=== PATIENT | female | born 1950 | race Caucasian/White ===

== ENCOUNTER 2017-04-15 18:28 | Inpatient (IN) | payer OTHER ==
[~2017-04-15] VITALS: Ht 152.4 cm; Wt 50.8 kg
--- NOTE | ~2017-04-15 | H ---
[facility] [place] [address] HISTORY AND PHYSICAL Name: GILMAR ELDER Room #: 459-P ADM IN M.R.#: [id number] Admission: 04/15/17 Attend Phys: Harish Hoff MD Discharge: Date of : 52 Report #: [id number] THIS REPORT FOR: //name// CC: Harish Wells ATTENDING PHYSICIAN: Betito Guzmán MD. PRIMARY CARE PHYSICIAN: Misha Adams MD. CHIEF COMPLAINT: PE and UTI. HISTORY OF PRESENT ILLNESS: The patient is an elderly female who was initially admitted at [facility] for low oxygen saturations. She does have underlying mental retardation from a hypoxic brain injury at and she is normally nonverbal. She was found to have low oxygen saturations and was taken into [facility] for further evaluation. Her oxygen saturations were in the 70s. She was diagnosed with PE in the left lower lobe. She was also noted to have a UTI. She initially was on a heparin drip and started on antibiotics for UTI. Her urine culture ended up growing E. coli. Her blood cultures have been negative. She is in the process of getting off the heparin drip and switching to Eliquis and working towards discharge, but her family thinks that she was back to her mental status baseline. Apparently, she is normally more alert; therefore, she underwent an MRI, which showed 4 meningiomas and neurology was consulted. It was around this time that the family did not want her transfer to [facility] if she had to remain hospitalized. She is a DNR/DNI. She had an echo done there, which showed an EF of 60% with grade 1 diastolic dysfunction and no regional wall motion abnormalities. She is currently alert, but remains nonverbal. She also has asthma and apparently was recently admitted at [facility] for a brief hospital stay for an asthma exacerbation. She is currently not in any acute distress. PAST MEDICAL HISTORY: Asthma, mental retardation, hypertension, hyperlipidemia, seizure disorder, and dysphagia. PAST SURGICAL HISTORY: Knee replacements. ALLERGIES: None. HOME MEDICATIONS: Trazodone 100 mg p.o. daily, budesonide b.i.d., potassium 10 mEq daily, Mobic 7.5 mg p.o. daily, loratadine 10 mg daily, Spiriva 1 capsule daily, Brovana 15 mcg inhaled b.i.d., Singulair 10 mg at bedtime, simvastatin 20 mg at bedtime, albuterol inhaler daily, Keppra 750 mg p.o. b.i.d., Prilosec 20 mg p.o. daily, Pataday eyedrops daily, milk of magnesia daily p.r.n., Tylenol p.r.n., multivitamin daily, guaifenesin 200 mg q.i.d., and Promethazine 12.5 mg q.8 hours p[address]n. [address] [address] HISTORY AND PHYSICAL Name: JAELGILMAR Man Room #: 459-P [facility] IN M..#: [id number] Admission: 04/15/17 Attend Phys: Harish Hoff MD Discharge: Date of : 52 Report #: [id number] SOCIAL HISTORY: The patient lives in a correction facility, has no history of alcohol, tobacco or drug use. FAMILY HISTORY: Positive for blood clots in her brother. REVIEW OF SYSTEMS: Unobtainable due to altered mental status. PHYSICAL EXAMINATION: GENERAL: The patient is an alert, but nonverbal female, in no acute distress. VITAL SIGNS: Temperature is 36.7, heart rate 110, respirations 20, blood pressure is 131/62, and oxygen 92% on room air. HEENT: PERRLA. Sclerae are nonicteric. She does not track with her eyes. Oral mucosa is pink and moist. She is edentulous. NECK: Supple, no JVD noted. CARDIAC: Normal S1, S2. No murmurs, rubs or gallops. RESPIRATORY: Breath sounds are clear bilaterally. No wheezing or rhonchi. Breathing is nonlabored. ABDOMEN: Soft, round, nontender, nondistended with positive bowel sounds. VASCULAR: No edema noted. Pedal pulses are 2+. NEUROLOGIC: The patient is alert. She is nonverbal. She does follow a few simple commands of taking a deep breath and opening her mouth, but she will not follow commands as far as moving her extremities or tracking with her eyes. LABORATORY DATA AND DIAGNOSTICS: Blood work done at [facility] shows WBC of 5.4, hemoglobin 11.9, and platelets 105. Sodium 149, potassium 3.7, BUN 14, creatinine 0.6, and glucose 107. MRI and CT of the head ____. ASSESSMENT AND PLAN: 1. Pulmonary embolism: The patient had been on a heparin drip. She was just switched to Eliquis today. She received her first dose of Eliquis earlier this morning and heparin drip was discontinued. We will continue with Eliquis 10 mg b.i.d. and then after 7 days decrease to 5 mg b.i.d. Her oxygen saturations are stable. 2. Urinary tract infection. The culture from [facility] does show that it is nelson sensitive Escherichia coli. We will start Cipro per IV right now and then switch to oral ____. 3. Brain meningiomas. Apparently, her MRI is consistent with 4 meningiomas. I am not sure if this is having any neurological effect at this time. When her family arrives, we will try to discuss with them if she is at her mental status baseline and see if she requires any neuro evaluation that does not seem necessary at this time. 4. Dysphagia. Apparently, she has pureed diet with honey thickened liquids and crushed medications, which she will continue and follow aspiration precautions. 5. Mental retardation with a nonverbal status. 6. Code status: The patient is a do not resuscitate/do not intubate per [facility] records. [address] [address] HISTORY AND PHYSICAL Name: GILMAR ELDER Room #: 459-P ADM IN .R.#: [id number] Admission: 04/15/17 Attend Phys: Harish Hoff MD Discharge: Date of : 52 Report #: [id number] 7. Asthma. She did have a recent exacerbation, but that has currently resolved. Continue with breathing treatments. 8. Hypertension. Blood pressure is stable. Continue home meds. 9. Deep venous thrombosis prophylaxis, place SCDs and continue Eliquis. We will continue to follow the patient closely throughout the hospitalization and make changes. Based on clinical status, she likely would be able to transfer back to her correction soon. <ELECTRONICALLY SIGNED> By: LISSETT Truong 04/17/17 0442 0850 1046 LISSETT Truong /shana
[~2017-04-15 18:28] MED LIST: ACCUNEB SO1.25 MG/1; ACCUNEB0.63 MG/3 IH; ADVAIR 250-501 EACH IH; ADVAIR 500-501 EACH IH; ALBUTEROL2.5 MG/31 INH; ALLERCLEAR10 MG PO; APAP500 PO; BONIVA150 MG PO; BROVANA15 MCG/2 M INH; BUDESONIDE0.5 MG/2 M INH; CEFTIN 250 MG250 MG PO; COUGHTAB200 MG PO; EUCERIN; FLINTSTONES +1 EACH PO; GOLYTELY SOLU4000 ML PO; KEPPRA XR750 MG PO; KEPPRA750 MG PO; KLOR-CON 1010 MEQ PO; LIPITOR10 MG PO; MILK OF MA2400 MG/10 PO; MOBIC15 MG PO; MOBIC7.5 M1 PO; MONTELUKAST SOD10 MG PO; NEOSPORIN OINTM15 GM TP; ORGAN-I NR200 MG PO; PATADAY2.5 ML OP; PHENERGAN 25 MG25 M1 PO; PREDNISONE 10 M10 MG PO; PREDNISONE 20 M20 MG PO; PREDNISONE 5 MG5 M1 PO; PRILOSEC20 MG PO; ROBITUSSIN DM118 ML PO; SIMVASTATIN20 MG PO; SINGULAIR 10 MG10 M1 PO; SPIRIVA INH; SPRINTEC1 EACH PO; TRAZODONE HCL100 MG PO; TRILEPTAL 300300 MG PO; TRIPLE ANTIBIOT28 G1; ZPAK PO; [UNRECOGNIZED DRUG - OTHER]; [UNRECOGNIZED DRUG - OTHER] PO; [UNRECOGNIZED DRUG - OTHER] PO
[2017-04-15 20:00] VITALS: BP 131/62
[2017-04-16] VITALS (8 sets, daily range): BP systolic 92–113; BP diastolic 35–48
[2017-04-17 03:04] VITALS: BP 104/40
[2017-04-17 06:02] LABS: HEMOGLOBIN 12.3 gm/dL (12.0-15.0); MCH 30.4 pg (26.0-34.0); MCHC 33.3 g/dL (28.0-37.0); MCV 91.2 fL (80.0-100.0); RBC 4.05 mil/uL (4.20-5.00); RDW 14.2 % (10.5-14.5); WBC 7.2 thou/uL (4.0-11.0)
[2017-04-17 06:29] LABS: ALBUMIN 2.6 g/dL (3.4-5.0); CALCIUM 7.7 mg/dL (8.5-10.1); CREATININE 0.6 mg/dL (0.6-1.0); POTASSIUM 4.3 mmol/L (3.5-5.1); TOTAL BILIRUBIN 0.3 mg/dL (<0.1-1.0); TOTAL PROTEIN 5.7 g/dL (6.4-8.2)
[2017-04-17 07:11] VITALS: BP 105/40
[2017-04-17 09:49] VITALS: BP 105/40
[2017-04-17 11:15] VITALS: BP 90/32
[2017-04-17 16:03] VITALS: BP 100/52
[2017-04-17 19:37] VITALS: BP 112/56
[2017-04-18 03:08] VITALS: BP 103/54
[2017-04-18 05:01] LABS: URINE BILIRUBIN NEGATIVE (Negative); URINE BLOOD NEGATIVE (Negative); URINE COLOR YELLOW; URINE GLUCOSE-RANDOM* NEGATIVE (Negative); URINE KETONES NEGATIVE (Negative); URINE LEUKOCYTES-REFLEX NEGATIVE (Negative); URINE PROTEIN (DIPSTICK) NEGATIVE (Negative); URINE SPECIFIC GRAVITY 1.015 (1.003-1.035); URINE UROBILINOGEN 0.2 E.U./dl (0.2-1.0)
[2017-04-18 07:52] VITALS: BP 89/31
[2017-04-18 09:52] LABS: HEMATOCRIT 38.1 % (37.0-47.0); HEMOGLOBIN 12.7 gm/dL (12.0-15.0); MCH 30.6 pg (26.0-34.0); MCHC 33.3 g/dL (28.0-37.0); MCV 91.9 fL (80.0-100.0); RBC 4.15 mil/uL (4.20-5.00); RDW 14.4 % (10.5-14.5); WBC 6.1 thou/uL (4.0-11.0)
[2017-04-18 10:00] LABS: CALCIUM 7.9 mg/dL (8.5-10.1); CREATININE 0.6 mg/dL (0.6-1.0); POTASSIUM 3.3 mmol/L (3.5-5.1)
[2017-04-18 11:07] VITALS: BP 107/44
[2017-04-18 15:32] VITALS: BP 105/89
[2017-04-19 07:16] VITALS: BP 115/55
[2017-04-19] MEDS ORDERED: ELIQUIS5 MG PO (11:24)
[2017-04-19] MEDS ORDERED: CIPRO500 MG PO (11:36)
[2017-04-19 14:53] VITALS: BP 115/55
[2017-04-19 16:11] VITALS: BP 115/55
== END 2017-04-19 16:10 | disposition home health service (06) | DRG 175 ==
LOC: 4W 18:28
PROVIDERS: Internal Medicine; Nurse Practitioner Acute Care
DX: I26.99 Other pulmonary embolism without acute cor pulmonale (principal); G93.40 Encephalopathy, unspecified; N39.0 Urinary tract infection, site not specified; E44.1 Mild protein-calorie malnutrition; J45.909 Unspecified asthma, uncomplicated; I10 Essential (primary) hypertension; E78.5 Hyperlipidemia, unspecified; G40.909 Epilepsy, unspecified, not intractable, without status epilepticus; Z96.659 Presence of unspecified artificial knee joint; D32.0 Benign neoplasm of cerebral meninges; R13.10 Dysphagia, unspecified; M85.80 Other specified disorders of bone density and structure, unspecified site; F79 Unspecified intellectual disabilities; Z66 Do not resuscitate; Z83.2 Family history of diseases of the blood and blood-forming organs and certain disorders involving the immune mechanism; Z79.899 Other long term (current) drug therapy; Z68.21 Body mass index [BMI] 21.0-21.9, adult
CPT/HCPCS: 10045; 10047

== ENCOUNTER → 2017-11-20 | Outpatient (CLI) | payer OTHER ==
[~2017-11-20] MED LIST changes: +CIPRO500 MG PO; +ELIQUIS5 MG PO
== END ==
LOC: RAD 08:45
DX: J98.11 Atelectasis (principal)

== ENCOUNTER 2019-02-02 11:29 | Inpatient (IN) | payer OTHER ==
[~2019-02-02] VITALS: Ht 165.1 cm; Wt 47.9 kg
[2019-02-02 11:37] VITALS: BP 82/26
[2019-02-02 12:24] LABS: ABSOLUTE NEUTROPHILS 2.7 thou/uL (1.4-8.2); BASOPHILS 0.6 % (0.0-2.0); EOSINOPHILS 13.5 % (0.0-3.0); HEMATOCRIT 31.5 % (37.0-47.0); HEMOGLOBIN 10.8 gm/dL (12.0-15.0); LYMPHOCYTES 20.8 % (24.0-44.0); MCH 31.6 pg (26.0-34.0); MCHC 34.2 g/dL (28.0-37.0); MCV 92.3 fL (80.0-100.0); MONOCYTES 9.4 % (1.0-8.0); PLATELET COUNT 103 thou/uL (150-400); POLYS 55.7 % (36.0-66.0); RBC 3.41 mil/uL (4.20-5.00); RDW 14.7 % (10.5-14.5); WBC 4.9 thou/uL (4.0-11.0)
[2019-02-02 12:33] LABS: URINE BILIRUBIN NEGATIVE (Negative); URINE BLOOD NEGATIVE (Negative); URINE COLOR YELLOW; URINE GLUCOSE-RANDOM* NEGATIVE (Negative); URINE KETONES NEGATIVE (Negative); URINE NITRITE-REFLEX NEGATIVE (Negative); URINE PROTEIN (DIPSTICK) NEGATIVE (Negative); URINE UROBILINOGEN 0.2 E.U./dl (0.2-1.0)
[2019-02-02 12:35] LABS: URINE LEUKOCYTES-REFLEX 2+ (Negative)
[2019-02-02 12:36] LABS: URINE CLARITY SL HAZY
[2019-02-02 12:41] LABS: ANION GAP 5 mmol/L (7-16); BUN 23 mg/dL (7-18); CALCIUM 8.2 mg/dL (8.5-10.1); CHLORIDE 106 mmol/L (98-107); CO2 32 mmol/L (21-32); CREATININE 0.7 mg/dL (0.6-1.0); GLUCOSE 98 mg/dL (74-106); POTASSIUM 4.2 mmol/L (3.5-5.1); SODIUM 143 mmol/L (136-145)
[2019-02-02 12:49] LABS: TROPONIN-I <0.06 ng/mL (<0.06)
[2019-02-02 13:00] LABS: AMP/METHAMP Negative (Negative); BARBITURATES Negative (Negative); BENZODIAZEPINES Negative (Negative); COCAINE Negative (Negative); METHADONE Negative (Negative); OPIATES Negative (Negative); PCP Negative (Negative); SQUAMOUS 0-3 Few /LPF (0-3); TRANSITIONAL EPITHEL CELL 0-3 Few /LPF (None Seen)
[2019-02-02 13:01] LABS: AMORPHOUS URATES Moderate /LPF (None Seen); BACTERIA-REFLEX 1-9 Few /HPF (None Seen); CASTS None Seen /LPF (None Seen); URINE RBC None Seen /HPF (0-2); URINE WBC-REFLEX 6-15 Few /HPF (0-5)
[2019-02-02] MEDS ORDERED: KEPPRA 500 MG500 M1 PO (14:36)
[2019-02-02] MEDS ORDERED: OMEPRAZOLE40 MG PO (14:38)
[2019-02-02] MEDS ORDERED: TRAZODONE HCL50 MG PO (14:47)
[2019-02-02 16:51] VITALS: BP 115/56
[2019-02-02 16:54] LABS: TSH 0.795 uIU/mL (0.358-3.740)
[2019-02-02 17:48] VITALS: BP 120/49
[2019-02-02 18:13] VITALS: BP 128/59
--- NOTE | 2019-02-02 18:45 | NUR ---
[age]AR FEMALE ADMITTED TO 3WEST ROOM 362 UNDER THE CARE OF DR. HARMON. PT LIVES IN A ASSISTED, AND SENT TO ER DUE TO STAFF STATING SHE WAS NOT "ACTING HERSELF" PT VERY SLEEPY AND BLOOD PRESSURE LOW PER ASSISTED STAFF. PT IS NON VERBAL, RESPONDS TO NAME ONLY. PT CAN FOLLOW SIMPLE COMMANDS. PT VSS, 98%RA, IVF INFUSING PER ORDER. PT DOES NOT APPEAR TO BE IN ANY PAIN. PT PRIVATE CARE GIVEN AT BEDSIDE TO HELP WITH ADMISSION ASSESSMENT. FILIPPO PICKERING TO MONITOR.
[2019-02-02 20:15] VITALS: BP 137/58
--- NOTE | 2019-02-02 21:32 | NUR ---
Assumed care at 1845. Pt resting in bed. No indications of pain. At most times she appears to be drowsy. VSS. NS running @125. She is non-verbal. No identified needs at the moment. Will continue to monitor.
[2019-02-03 04:10] VITALS: BP 111/66
[2019-02-03 05:35] LABS: HEMATOCRIT 33.5 % (37.0-47.0); HEMOGLOBIN 11.3 gm/dL (12.0-15.0); MCH 31.2 pg (26.0-34.0); MCHC 33.9 g/dL (28.0-37.0); MCV 92.1 fL (80.0-100.0); RBC 3.64 mil/uL (4.20-5.00); RDW 14.2 % (10.5-14.5); WBC 3.8 thou/uL (4.0-11.0)
[2019-02-03 06:11] LABS: ALBUMIN 2.8 g/dL (3.4-5.0); CALCIUM 7.6 mg/dL (8.5-10.1); CREATININE 0.7 mg/dL (0.6-1.0); PHOSPHORUS 4.1 mg/dL (2.5-4.9); POTASSIUM 3.4 mmol/L (3.5-5.1)
[2019-02-03 08:08] VITALS: BP 114/62
[2019-02-03 12:42] VITALS: BP 124/59
--- NOTE | 2019-02-03 15:43 | NUR ---
ASSESSMENT: CM REVIEWED CHART AND MET WITH PATIENT AT THE BEDSIDE. PTS CAREGIVER KLAUDIA WAS ALSO PRESENT. PT WAS ADMITTED FOR UTI/HYPOTENSION/DELERIUM. PT LIVES AT [facility] AND HAS A LEGAL GUARDIAN REJI (SISTER). PT NORMALLY AMBULATES INDEPENDENTLY. CAREGIVER AND SISTER REPORT SHE NORMALLY IS NOT ABLE TO VERBALLY COMMUNICATE WHAT HER NEEDS. CM DISCUSSED WITH LEGAL GUARDIAN AND PLANS ARE FOR PATIENT TO RETURN TO HER [facility] ONCE SHE IS MEDICALLY STABLE TO DO SO. CM WILL CONITINUE TO FOLLOW TO ASSIST NEEDED.
--- NOTE | 2019-02-03 16:55 | EKG ---
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: DAREK : 1950 Requested By: Murray Bowman Order Number: [id number] MD: Denys Barnett Measurements Intervals Raymond Rate: 69 P: 56 GA: 217 QRS: -11 QRSD: 83 T: 55 QT: 433 QTc: 464 Interpretive Statements Sinus rhythm Borderline prolonged GA interval Abnormal R-wave progression, early transition Compared to ECG 12/08/2014 10:35:34 Sinus tachycardia no longer present early R-wave progression is now present Electronically Signed On 02-03-2019 16:55:25 CDT by Denys Barnett [email or web address] ��������������������������������������������� <ELECTRONICALLY SIGNED> ���������������������������������������� By: Denys Barnett MD, [facility] ��������������������������������������������� 02/03/19 1655 1229 1229 Denys Barnett MD, [facility] /EPI
[2019-02-03 19:50] VITALS: BP 130/66
[2019-02-04 03:38] VITALS: BP 108/56
[2019-02-04 07:12] VITALS: BP 121/56
--- NOTE | 2019-02-04 10:29 | NUR ---
Nutrition: assess d/t low BMI of 17.6. Pt admitted for low BP and UTI; hx of MR. Pt had no BM for ~7 days prior to admit. No family present during visit. Wt hx from past admissions show loss of ~6 lbs over the past 2 years. Pt is on pureed diet w/ NTL at SNF. Video swallow study was done on 02/03 which confirmed need for altered diet. Will confirm wt hx w/ family when available. Otherwise, consider low nutrition risk at this time.
[2019-02-04 15:10] VITALS: BP 144/76
--- NOTE | 2019-02-04 15:52 | NUR ---
CONTINENT OF 2 LARGE, BROWN, AND SOFT STOOLS POST MIRALAX AND DULCOLAX SUPPOSITORY.
--- NOTE | 2019-02-04 15:58 | NUR ---
on-going assessment: cm REVIEWED CHART AND MET WITH PATIENT AT THE BEDSIDE. PTS CAREGIVER WAS PRESENT. PT IS SLOWLY PROGRESSING TOWARDS DISCHARGE GOALS. PER ATTENDING PT MAY BE STABLE IN THE NEXT DAY OR SO TO GO BACK TO [facility]. CM CONTACT PATIENTS SISTER(GUARDIAN) REJI TO NOTIFY. CM ALSO SPOKE WITH KIA [phone] WHO IS THE BOSS AT THE CARE HOME WHO STATES HE WILL DIRECTOR MEDICAL SURGICAL PATIENT FOR TRANSPORTATION AT DISCHARGE. CM WILL CONTINUE TO FOLLOW TO ASSIST NEEDED.
[2019-02-04 19:45] VITALS: BP 168/72
[2019-02-05 05:15] VITALS: BP 133/72
[2019-02-05 07:14] VITALS: BP 128/58
--- NOTE | 2019-02-05 07:56 | NUR ---
ASSUMED CARE OF PT AT 1900. A&Ox2, COOPERATIVE MOST OF THIS SHIFT. A LITTLE AGITATION BUT WAS REDIRECTABLE. VS STABLE, NO ACUTE DISTRESS. 2 SM BMS IN TOILET OVER NOC. ABLE TO SLEEP MORE THAN HALF THIS SHIFT. PROGRESSING TOWARDS POC GOALS.
[2019-02-05] MEDS ORDERED: ELIQUIS5 MG PO (10:31)
[2019-02-05] MEDS ORDERED: AUGMENTIN 400-1 EACH PO (10:32)
[2019-02-05 13:08] VITALS: BP 128/58
--- NOTE | 2019-02-05 13:22 | NUR ---
Assumed care of patient at 0700. Vitals have been stable. Patient is alert, appears oriented to self. Otherwise non-verbal and confused. Able to follow simple commands. Caregiver at bedside. States feels patient may still be having some abdominal pain, as she rubs at her belly from time to time. Encouraged to speak with the doctor to see what the next step will be. Dr. Guzmán rounded and wrote for DC orders. Caregiver still concerned about ABD pain. Bladder scan shows 900 mL of urine. Encouarged patient to get out of bed and void. Able to walk SBA to bathroom and voided; post void residual shows 15 mL. Patient also passed a lot of gas while up in the bathroom. Patient seems much more relaxed now and able to sleep on and off. Both of patient's sisters have concerns about discharge. Answered their questions regarding bladder scan and reassured that patient was able to void. Could be some gas pains from laxatives given yesterday. Dr. Guzmán called guardian, Kindra and answered her questions and concerns. Chart copy made for alf. IV discontinued. Belongings gathered. Briefly reviewed discharge instructions with caregiver at bedside and placed in chart copy. Verbalizes understanding. Awaiting wheelchair transportation back to home with caregiver at bedside; to have home health.
--- NOTE | 2019-02-05 14:49 | NUR ---
ON-GOING ASSESSMENT: MARÍA ELENA REVIEWED CHART. PT HAS ORDERS TO DISCHARGE TODAY BACK TO HER [facility] WITH [facility]. MARÍA ELENA SPOKE WITH PATIENTS SISTER/GUARDIAN REJI TO DISCUSS. SHE HAD CONCERNS IF PATIENT WAS READY FOR DISCHARGE. MARÍA ELENA REACHED OUT TO ATTENDING AND REQUESTED HE CONTACT REJI AND PROVIDED HIM WITH HER CONTACT INFORMATION. MARÍA ELENA SPOKE AGAIN WITH REJI WHO SPOKE WITH THE PHYSICIAN AND SHE IS COMFORTABLE WITH PATIENT DISCHARGING TODAY BACK TO HER [facility] WITH HH. MARÍA ELENA SPOKE WITH REJI AND SHE PREFERRED [facility]. CM NOTIFIED [facility] AND OF DISCHARGE TODAY AND THEY CAN ACCEPT. MARÍA ELENA ALSO SPOKE WITH REJI IN REGARDS OF HER AND HER SISTER WANTING SOME INFORMATION IN LOOKING AT LTC IN THE FUTURE FOR PATIENT. MARÍA ELENA PROVIDED A LIST OF DIFFERENT FACILITIES AND SINCE PATIENTS SISTER REJI WAS UNABLE TO BE HER PUT IT IN THE CHART COPY TO GO WITH HER TO HER [facility]USTODIAL. CM NOTIFIED PATIENTS CAREGIVER WHO WAS AT THE BEDSIDE WITH HER. MARÍA ELENA CONTACTED KIA (BOSS AT THE CUSTODIAL) THAT PATIENT WAS READY FOR DISCHARGE PATIENTS GUARDIAN PREFERRED THAT HE PICK HER UP. 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 CASE CLOSED.
== END 2019-02-05 15:06 | disposition home health service (06) | DRG 177 ==
LOC: ER 11:29 → EROBS 16:03 → 3W 16:03
PROVIDERS: Emergency Medicine; ADMIT Hospitalist
DX: J69.0 Pneumonitis due to inhalation of food and vomit (principal); G92 Toxic encephalopathy; G93.40 Encephalopathy, unspecified; N39.0 Urinary tract infection, site not specified; E46 Unspecified protein-calorie malnutrition; Z68.1 Body mass index [BMI] 19.9 or less, adult; J45.909 Unspecified asthma, uncomplicated; I95.9 Hypotension, unspecified; M85.80 Other specified disorders of bone density and structure, unspecified site; R41.0 Disorientation, unspecified; K59.00 Constipation, unspecified; K21.9 Gastro-esophageal reflux disease without esophagitis; E87.6 Hypokalemia; G40.909 Epilepsy, unspecified, not intractable, without status epilepticus; D32.9 Benign neoplasm of meninges, unspecified; R13.11 Dysphagia, oral phase; Z87.440 Personal history of urinary (tract) infections; Z86.711 Personal history of pulmonary embolism; Z79.899 Other long term (current) drug therapy
CPT/HCPCS: 10080

== ENCOUNTER 2019-02-09 14:21 | Emergency (ER) | payer OTHER ==
[~2019-02-09] VITALS: Ht 165.1 cm; Wt 47.6 kg
[~2019-02-09 14:21] MED LIST changes: +AUGMENTIN 400-1 EACH PO; +KEPPRA 500 MG500 M1 PO; +OMEPRAZOLE40 MG PO; +TRAZODONE HCL50 MG PO
[2019-02-09 15:03] LABS: ABSOLUTE NEUTROPHILS 2.9 thou/uL (1.4-8.2); BASOPHILS 0.7 % (0.0-2.0); EOSINOPHILS 16.1 % (0.0-3.0); HEMATOCRIT 32.8 % (37.0-47.0); HEMOGLOBIN 11.2 gm/dL (12.0-15.0); LYMPHOCYTES 18.8 % (24.0-44.0); MCH 31.3 pg (26.0-34.0); MCHC 34.1 g/dL (28.0-37.0); MONOCYTES 8.8 % (1.0-8.0); PLATELET COUNT 103 thou/uL (150-400); POLYS 55.6 % (36.0-66.0); RBC 3.57 mil/uL (4.20-5.00); RDW 14.3 % (10.5-14.5); WBC 5.1 thou/uL (4.0-11.0)
[2019-02-09 15:09] LABS: ANION GAP 4 mmol/L (7-16); BUN 13 mg/dL (7-18); CALCIUM 8.4 mg/dL (8.5-10.1); CHLORIDE 107 mmol/L (98-107); CO2 30 mmol/L (21-32); CREATININE 0.7 mg/dL (0.6-1.0); GLUCOSE 150 mg/dL (74-106); POTASSIUM 3.8 mmol/L (3.5-5.1); SODIUM 141 mmol/L (136-145)
[2019-02-09 15:19] LABS: TROPONIN-I <0.06 ng/mL (<0.06)
--- NOTE | 2019-02-09 17:16 | EKG ---
[address] [address] [place] [address] ELECTROCARDIOGRAM REPORT Name: GWENDOLYN ELDERANNAndrew Conway Room #: [facility]#: [id number] ������������������ Admission: 02/09/19 ������������������ Attend Phys: Discharge: ������������������ Date of : 52 Report #: [id number] ����������������������������������������������������������������� [id number] THIS REPORT FOR: //name// [facility] ED Test Date: 2019-02-09 Test Time: 15:46:58 Pat Name: GILMAR ELDER Department: Room: Gender: F Web Portal Developer: DANIEL : 1950 Requested By: Murray Bowman Order Number: [id number] MD: Denys Barnett Measurements Intervals [place] Rate: 97 P: 59 SD: 178 QRS: -15 QRSD: 85 T: 52 QT: 373 QTc: 474 Interpretive Statements Sinus rhythm Ventricular premature complex Early R-wave progression Compared to ECG 02/02/2019 12:29:21 Ventricular premature complex(es) now present Electronically Signed On 02-09-2019 17:15:57 CDT by Denys Barnett [email or web address] ��������������������������������������������� <ELECTRONICALLY SIGNED> ���������������������������������������� By: Denys Barnett MD, [facility] ��������������������������������������������� 02/09/19 1715 D: [id number] Denys Barnett MD, FACC /EPI
[2019-02-09] MEDS ORDERED: MAGNESIUM CITR296 ML PO (17:42)
[2019-02-09 18:07] VITALS: BP 142/73
== END 2019-02-09 18:08 | disposition designated cancer center or children's hospital (05) ==
LOC: ER 14:21
PROVIDERS: Emergency Medicine
DX: J45.901 Unspecified asthma with (acute) exacerbation (principal); K59.00 Constipation, unspecified; Z86.711 Personal history of pulmonary embolism; Z87.440 Personal history of urinary (tract) infections

== ENCOUNTER 2019-02-13 16:01 | Emergency (ER) | payer OTHER ==
[~2019-02-13] VITALS: Ht 160 cm; Wt 59.0 kg
[~2019-02-13 16:01] MED LIST changes: +MAGNESIUM CITR296 ML PO
[2019-02-13] MEDS ORDERED: PREDNISONE 20 M20 MG PO (16:44)
== END 2019-02-13 17:10 | disposition home or self-care (01) ==
LOC: ER 16:01
DX: J40 Bronchitis, not specified as acute or chronic (principal); J98.01 Acute bronchospasm; K59.00 Constipation, unspecified; Z87.440 Personal history of urinary (tract) infections; Z86.711 Personal history of pulmonary embolism

== ENCOUNTER 2019-03-16 14:40 | Emergency (ER) | payer OTHER ==
[~2019-03-16] VITALS: Ht 152.4 cm; Wt 55.0 kg
[2019-03-16 15:45] LABS: ABSOLUTE NEUTROPHILS 2.2 thou/uL (1.4-8.2); BASOPHILS 1.4 % (0.0-2.0); EOSINOPHILS 15.9 % (0.0-3.0); HEMATOCRIT 35.7 % (37.0-47.0); LYMPHOCYTES 23.6 % (24.0-44.0); MCH 31.1 pg (26.0-34.0); MCHC 33.7 g/dL (28.0-37.0); MCV 92.1 fL (80.0-100.0); MONOCYTES 9.6 % (1.0-8.0); PLATELET COUNT 127 thou/uL (150-400); POLYS 49.5 % (36.0-66.0); RBC 3.88 mil/uL (4.20-5.00); RDW 13.8 % (10.5-14.5); WBC 4.4 thou/uL (4.0-11.0)
[2019-03-16 15:53] LABS: CALCIUM 8.5 mg/dL (8.5-10.1); CREATININE 0.7 mg/dL (0.6-1.0); POTASSIUM 3.6 mmol/L (3.5-5.1)
[2019-03-16 15:58] LABS: ALBUMIN 3.3 g/dL (3.4-5.0); TOTAL BILIRUBIN 0.2 mg/dL (<0.1-1.0); TOTAL PROTEIN 6.9 g/dL (6.4-8.2)
[2019-03-16 16:06] LABS: BE(vivo) 2.2 mmol/L (-2 to +3); HCO3 26.3 mmol/L (22.0-26.0); PCO2 39.1 mmHg (35.0-45.0); PO2 74.4 mmHg (80.0-100.0); pH 7.446 (7.360-7.450); sO2 95.5 % (92.0-98.0)
[2019-03-16] MEDS ORDERED: MOBIC7.5 MG PO (16:33)
[2019-03-16] MEDS ORDERED: FLINTSTONES1 EAC2 PO (16:33)
[2019-03-16] MEDS ORDERED: AMOX TR-K600 MG/5 M PO (16:36)
[2019-03-16] MEDS ORDERED: OXYBUTYNIN 5 MG5 M2 PO (16:38)
[2019-03-16] MEDS ORDERED: IPRATROPIU0.2 MG/1 M INH (16:39)
[2019-03-16] MEDS ORDERED: MELATONIN5 M1 PO (16:41)
[2019-03-16] MEDS ORDERED: LINZESS145 MCG PO (16:43)
[2019-03-16] MEDS ORDERED: MIRALAX17 GM PO (16:51)
[2019-03-16] MEDS ORDERED: VERIPRED 220 MG/5 ML PO (16:51)
[2019-03-16 19:50] VITALS: BP 127/49
== END 2019-03-16 19:52 | disposition home or self-care (01) ==
LOC: ER 14:40
PROVIDERS: Physician Assistant
DX: J45.901 Unspecified asthma with (acute) exacerbation (principal); K59.00 Constipation, unspecified; Z87.440 Personal history of urinary (tract) infections; Z86.711 Personal history of pulmonary embolism

== ENCOUNTER 2019-06-03 12:09 | Emergency (ER) | payer OTHER ==
[~2019-06-03] VITALS: Ht 157.5 cm; Wt 65.8 kg
[~2019-06-03 12:09] MED LIST changes: +AMOX TR-K600 MG/5 M PO; +DOXYCYCLINE 10100 MG PO; +FLINTSTONES1 EAC2 PO; +IPRATROPIU0.2 MG/1 M INH; +LINZESS145 MCG PO; +MELATONIN5 M1 PO; +MIRALAX17 GM PO; +MOBIC7.5 MG PO; +OXYBUTYNIN 5 MG5 M2 PO; +VERIPRED 220 MG/5 ML PO
[2019-06-03 14:17] LABS: URINE BILIRUBIN NEGATIVE (Negative); URINE BLOOD NEGATIVE (Negative); URINE CLARITY CLEAR; URINE COLOR YELLOW; URINE GLUCOSE-RANDOM* NEGATIVE (Negative); URINE KETONES NEGATIVE (Negative); URINE LEUKOCYTES NEGATIVE (Negative); URINE NITRITE NEGATIVE (Negative); URINE PROTEIN (DIPSTICK) NEGATIVE (Negative); URINE UROBILINOGEN 0.2 E.U./dl (0.2-1.0)
[2019-06-03 15:58] LABS: ABSOLUTE NEUTROPHILS 2.8 thou/uL (1.4-8.2); EOSINOPHILS 11.9 % (0.0-3.0); HEMATOCRIT 40.5 % (37.0-47.0); HEMOGLOBIN 13.4 gm/dL (12.0-15.0); MCH 30.6 pg (26.0-34.0); MCHC 33.1 g/dL (28.0-37.0); MCV 92.4 fL (80.0-100.0); MONOCYTES 8.6 % (1.0-8.0); PLATELET COUNT 132 thou/uL (150-400); POLYS 58.5 % (36.0-66.0); RBC 4.39 mil/uL (4.20-5.00); RDW 14.2 % (10.5-14.5); WBC 4.7 thou/uL (4.0-11.0)
[2019-06-03 16:07] LABS: CALCIUM 8.2 mg/dL (8.5-10.1); CREATININE 0.7 mg/dL (0.6-1.0); POTASSIUM 3.5 mmol/L (3.5-5.1)
[2019-06-03 16:13] LABS: ALBUMIN 3.7 g/dL (3.4-5.0); TOTAL BILIRUBIN 0.2 mg/dL (<0.1-1.0); TOTAL PROTEIN 7.9 g/dL (6.4-8.2)
[2019-06-03] MEDS ORDERED: DECADRON0.5 MG/5 M PO (17:01)
[2019-06-03 17:16] VITALS: BP 129/48
--- NOTE | 2019-06-06 18:05 | EKG ---
[address] [place] [address] ELECTROCARDIOGRAM REPORT Name: GILMAR ELDER Room #: DEP [facility]#: [id number] ������������������ Admission: 06/03/19 ������������������ Attend Phys: Discharge: 06/03/19 ������������������ Date of : 52 Report #: [id number] ����������������������������������������������������������������� [id number] THIS REPORT FOR: //name// [facility] ED Test Date: 2019-06-03 Test Time: 15:45:42 Pat Name: GILMAR ELDER Department: Room: Gender: F Options Advisor: WG : 1950 Requested By: Murray Bowman Order Number: [id number] MD: Denys Barnett Measurements Intervals [place] Rate: 92 P: 61 NH: 186 QRS: 3 QRSD: 86 T: 61 QT: 372 QTc: 461 Interpretive Statements Sinus rhythm Poor R wave progression Compared to ECG 02/09/2019 15:46:58 No significant change was found Electronically Signed On 06-06-2019 18:05:16 CDT by Denys Barnett [email or web address] ��������������������������������������������� <ELECTRONICALLY SIGNED> ���������������������������������������� By: Denys Barnett MD, [facility] ��������������������������������������������� 06/06/19 1805 1545 1545 Denys Barnett MD, FACC /EPI
== END 2019-06-03 17:17 | disposition home or self-care (01) ==
LOC: ER 12:09
PROVIDERS: Emergency Medicine
DX: J45.901 Unspecified asthma with (acute) exacerbation (principal)

== ENCOUNTER 2019-07-12 19:59 | Emergency (ER) | payer OTHER ==
[~2019-07-12] VITALS: Ht 152.4 cm; Wt 63.5 kg
[~2019-07-12 19:59] MED LIST changes: +DECADRON0.5 MG/5 M PO
[2019-07-12] MEDS ORDERED: ALBUTEROL2.5 MG/31 INH (20:19)
[2019-07-12] MEDS ORDERED: CLARITIN10 MG PO (20:20)
[2019-07-12] MEDS ORDERED: MOBIC7.5 MG PO (20:20)
[2019-07-12] MEDS ORDERED: FLINTSTONES GU1 EACH PO (20:20)
[2019-07-12] MEDS ORDERED: OMEPRAZOLE40 MG PO (20:21)
[2019-07-12] MEDS ORDERED: SINGULAIR 10 MG10 MG PO (20:21)
[2019-07-12] MEDS ORDERED: ZOCOR20 MG PO (20:22)
[2019-07-12] MEDS ORDERED: PATADAY2.5 ML OPHTHALMIC (20:22)
[2019-07-12] MEDS ORDERED: KLOR-CON 1010 MEQ PO (20:22)
[2019-07-12] MEDS ORDERED: BROVANA15 MCG/2 M INH (20:23)
[2019-07-12] MEDS ORDERED: TRAZODONE 150150 M1 PO (20:23)
[2019-07-12] MEDS ORDERED: ELIQUIS5 MG PO (20:24)
[2019-07-12] MEDS ORDERED: PULMICORT0.5 MG/22 INH (20:24)
[2019-07-12] MEDS ORDERED: KEPPRA 500 MG500 M1 PO (20:24)
[2019-07-12] MEDS ORDERED: OXYBUTYNIN 5 MG5 M2 PO (20:25)
[2019-07-12] MEDS ORDERED: IPRATROPIU0.2 MG/1 M INH (20:26)
[2019-07-12] MEDS ORDERED: GUAIFENESIN200 MG PO (20:30)
[2019-07-12] MEDS ORDERED: albuterol sulf (20:32)
[2019-07-12] MEDS ORDERED: BAC (20:33)
[2019-07-12] MEDS ORDERED: NEO (20:33)
[2019-07-12] MEDS ORDERED: POLY (20:33)
[2019-07-12] MEDS ORDERED: [UNRECOGNIZED DRUG - MIXTURE] (20:34)
[2019-07-12] MEDS ORDERED: MAPAP500 MG PO (20:35)
[2019-07-12] MEDS ORDERED: MELATONIN5 M1 PO (20:35)
[2019-07-12] MEDS ORDERED: MILK OF MA400 MG/5 M PO (20:43)
[2019-07-12] MEDS ORDERED: PREDNISONE50 MG PO (21:25)
[2019-07-12 21:46] VITALS: BP 141/61
== END 2019-07-12 22:00 | disposition home or self-care (01) ==
LOC: ER 19:59
DX: J45.901 Unspecified asthma with (acute) exacerbation (principal); M85.80 Other specified disorders of bone density and structure, unspecified site; Z86.711 Personal history of pulmonary embolism

== ENCOUNTER 2019-08-05 15:16 | Emergency (ER) | payer OTHER ==
[~2019-08-05] VITALS: Ht 165.1 cm; Wt 63.5 kg
[~2019-08-05 15:16] MED LIST changes: +BAC; +CLARITIN10 MG PO; +FLINTSTONES GU1 EACH PO; +GUAIFENESIN200 MG PO; +MAPAP500 MG PO; +MILK OF MA400 MG/5 M PO; +NEO; +PATADAY2.5 ML OPHTHALMIC; +POLY; +PREDNISONE50 MG PO; +PULMICORT0.5 MG/22 INH; +SINGULAIR 10 MG10 MG PO; +TRAZODONE 150150 M1 PO; +ZOCOR20 MG PO; +[UNRECOGNIZED DRUG - MIXTURE]; +albuterol sulf
[2019-08-05] MEDS ORDERED: ENEMA133 M1 RECTAL (16:20)
[2019-08-05 17:41] LABS: ABSOLUTE NEUTROPHILS 2.8 thou/uL (1.4-8.2); BASOPHILS 0.6 % (0.0-2.0); HEMATOCRIT 37.6 % (37.0-47.0); HEMOGLOBIN 12.4 gm/dL (12.0-15.0); LYMPHOCYTES 26.9 % (24.0-44.0); MCH 30.5 pg (26.0-34.0); MCV 92.5 fL (80.0-100.0); MONOCYTES 9.8 % (1.0-8.0); PLATELET COUNT 128 thou/uL (150-400); POLYS 53.7 % (36.0-66.0); RBC 4.06 mil/uL (4.20-5.00); RDW 14.3 % (10.5-14.5); WBC 5.1 thou/uL (4.0-11.0)
[2019-08-05 17:50] LABS: ANION GAP 4 mmol/L (7-16); BUN 23 mg/dL (7-18); CHLORIDE 105 mmol/L (98-107); CO2 35 mmol/L (21-32); GLUCOSE 105 mg/dL (74-106); POTASSIUM 4.2 mmol/L (3.5-5.1); SODIUM 144 mmol/L (136-145)
[2019-08-05 18:01] LABS: TROPONIN-I <0.06 ng/mL (<0.06)
[2019-08-05 18:45] VITALS: BP 146/73
--- NOTE | 2019-08-06 17:14 | EKG ---
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: WG : 1950 Requested By: Joaquina Tabares Order Number: [id number] MD: Denys Barnett Measurements Intervals [place] Rate: 90 P: 60 MN: 183 QRS: 1 QRSD: 88 T: 55 QT: 369 QTc: 452 Interpretive Statements Sinus rhythm No significant abnormality Compared to ECG 06/03/2019 15:45:42 Poor R-wave progression no longer present Electronically Signed On 08-06-2019 17:14:41 CDT by Denys Barnett [email or web address] ��������������������������������������������� <ELECTRONICALLY SIGNED> ���������������������������������������� By: Denys Barnett MD, [facility] ��������������������������������������������� 08/06/19 1714 165 165 Denys Barnett MD, FACC /EPI
== END 2019-08-05 18:46 | disposition home or self-care (01) ==
LOC: ER 15:16
PROVIDERS: Nurse Practitioner
DX: R09.02 Hypoxemia (principal); J45.909 Unspecified asthma, uncomplicated; M85.80 Other specified disorders of bone density and structure, unspecified site; Z86.711 Personal history of pulmonary embolism; Z87.440 Personal history of urinary (tract) infections

== ENCOUNTER 2019-08-14 14:58 | Emergency (ER) | payer OTHER ==
[~2019-08-14] VITALS: Ht 154.9 cm; Wt 65.8 kg
[~2019-08-14 14:58] MED LIST changes: +ENEMA133 M1 RECTAL
[2019-08-14] MEDS ORDERED: PREDNISONE50 MG PO (17:38)
[2019-08-14] MEDS ORDERED: AZITHROMYCIN 2250 MG PO (17:38)
[2019-08-14 18:22] VITALS: BP 131/98
[2019-08-15] MEDS ORDERED: DEXAMETHASONE 44 M1 PO (07:48)
[2019-08-15] MEDS ORDERED: LINZESS145 MCG PO (07:49)
[2019-08-15] MEDS ORDERED: MIRALAX17 GM PO (07:51)
[2019-08-15] MEDS ORDERED: TRAZODONE HCL50 MG PO (07:51)
[2019-08-15] MEDS ORDERED: BROVANA15 MCG/2 M INH (07:52)
[2019-08-15] MEDS ORDERED: MAPAP500 M1 PO (07:54)
[2019-08-15] MEDS ORDERED: STOOL SOFTENER100 M1 PO (07:55)
== END 2019-08-14 18:08 | disposition home or self-care (01) ==
LOC: ER 14:58
DX: J45.901 Unspecified asthma with (acute) exacerbation (principal); Z86.711 Personal history of pulmonary embolism; Z87.440 Personal history of urinary (tract) infections

== ENCOUNTER 2019-08-15 07:27 | Inpatient (IN) | payer OTHER ==
[~2019-08-15] VITALS: Ht 152.4 cm; Wt 45.4 kg
[~2019-08-15 07:27] MED LIST changes: +AZITHROMYCIN 2250 MG PO
[2019-08-15 07:29] VITALS: BP 102/53
[2019-08-15 07:47] LABS: ABSOLUTE NEUTROPHILS 3.6 thou/uL (1.4-8.2); BASOPHILS 0.2 % (0.0-2.0); EOSINOPHILS 0.1 % (0.0-3.0); HEMATOCRIT 38.4 % (37.0-47.0); HEMOGLOBIN 12.7 gm/dL (12.0-15.0); LYMPHOCYTES 13.3 % (24.0-44.0); MCH 30.6 pg (26.0-34.0); MCV 92.7 fL (80.0-100.0); MONOCYTES 8.7 % (1.0-8.0); PLATELET COUNT 121 thou/uL (150-400); POLYS 77.7 % (36.0-66.0); RBC 4.14 mil/uL (4.20-5.00); RDW 14.1 % (10.5-14.5); WBC 4.6 thou/uL (4.0-11.0)
[2019-08-15] MEDS ORDERED: DEXAMETHASONE 44 M1 PO (07:48)
[2019-08-15] MEDS ORDERED: LINZESS145 MCG PO (07:49)
[2019-08-15] MEDS ORDERED: TRAZODONE HCL50 MG PO (07:51)
[2019-08-15] MEDS ORDERED: MIRALAX17 GM PO (07:51)
[2019-08-15] MEDS ORDERED: BROVANA15 MCG/2 M INH (07:52)
[2019-08-15] MEDS ORDERED: MAPAP500 M1 PO (07:54)
[2019-08-15] MEDS ORDERED: STOOL SOFTENER100 M1 PO (07:55)
[2019-08-15 07:56] LABS: ANION GAP 5 mmol/L (7-16); BUN 15 mg/dL (7-18); CALCIUM 8.9 mg/dL (8.5-10.1); CHLORIDE 105 mmol/L (98-107); CO2 32 mmol/L (21-32); CREATININE 0.7 mg/dL (0.6-1.0); GLUCOSE 108 mg/dL (74-106); POTASSIUM 3.8 mmol/L (3.5-5.1)
[2019-08-15 07:57] LABS: SODIUM 142 mmol/L (136-145)
[2019-08-15 08:04] LABS: TROPONIN-I <0.06 ng/mL (<0.06)
[2019-08-15 08:41] VITALS: BP 107/56
--- NOTE | 2019-08-15 10:26 | NUR ---
[facility] [id number]
[2019-08-15 10:30] VITALS: BP 127/50
--- NOTE | 2019-08-15 10:41 | EKG ---
[address] [address] ELECTROCARDIOGRAM REPORT Name: GILMAR ELDER Room #: 170-1 ADM IN M.R.#: [id number] Admission: 08/15/19 Attend Phys: Tim Lee MD Discharge: Date of : 52 Report #: [id number] THIS REPORT FOR: //name// [facility] ED Test Date: 2019-08-15 Test Time: 07:47:40 Pat Name: GILMAR ELDER Department: Room: 170 Gender: F Compensation Vice President: DAREK : 1950 Requested By: Red Rob Order Number: [id number] MD: Brennan Lewis Measurements Intervals [place] Rate: 77 P: 86 CA: 202 QRS: -12 QRSD: 124 T: 52 QT: 409 QTc: 463 Interpretive Statements Sinus rhythm Nonspecific intraventricular conduction delay Compared to ECG 08/05/2019 16:54:43 Intraventricular conduction delay now present Electronically Signed On 08-15-2019 10:41:23 CDT by Brennan Lewis [email or web address] <ELECTRONICALLY SIGNED> By: Brennan Lewis MD 08/15/19 1041 0747 0747 Brennan Lewis MD /ROSALIA
[2019-08-15 10:52] VITALS: BP 103/58
[2019-08-15 11:43] LABS: HEMATOCRIT 38.9 % (37.0-47.0); HEMOGLOBIN 12.8 gm/dL (12.0-15.0); MCH 30.3 pg (26.0-34.0); MCHC 32.9 g/dL (28.0-37.0); RBC 4.22 mil/uL (4.20-5.00); RDW 14.2 % (10.5-14.5); WBC 4.8 thou/uL (4.0-11.0)
[2019-08-15 11:47] LABS: CALCIUM 8.5 mg/dL (8.5-10.1); CREATININE 0.8 mg/dL (0.6-1.0); POTASSIUM 3.5 mmol/L (3.5-5.1)
--- NOTE | 2019-08-15 15:22 | NUR ---
pt admitted from ER for increased SOB , pt has Hx : asthma and mentai retardation, pt is confused, she try to get out her bed and refused to stay her room , even pt stays with caregiver,pt RN has called , new order, lorazepam 0.5mg iv q4hr prn for agitation, after giving lorazpam, pt is calm down now, pt's vs are stable, pt's sob has improved by breathing treatment.pt is high fall risk.we will keep eye on pt.
[2019-08-15 16:25] VITALS: BP 121/63
[2019-08-15 19:44] VITALS: BP 125/56
[2019-08-16 04:43] VITALS: BP 124/91
--- NOTE | 2019-08-16 05:17 | NUR ---
End of shift note: pt nonverbal, pt caregivers [facility] in room. Sleeping off/on. RR 20. good strong cough-congested, non production noted. LS -coarse wheezes, rhonci throughout. 02sat 89-90, this am. 2lnc placed on pt. Bed alarm on. Cont plan of care.
[2019-08-16 07:46] VITALS: BP 127/53
--- NOTE | 2019-08-16 10:36 | NUR ---
ASSESSMENT: CM REVIEWED CHART AND MET WITH PATIENT AT THE BEDSIDE. PT WAS ADMITTED FROM [facility] DUE TO ASTHMA. PT HAS HX OF MR AND IS UNABLE TO COMMUNICATE HER NEEDS. CM SPOKE WITH PATIENTS SISTER/GUARDIAN REJI WELL KIA WHO IS THE MUSIC INTERNSHIP OF HER [facility] WHO IS HERE WITH THE PATIENT. PLANS ARE FOR PATIENT TO RETURN TO [facility] ONCE MEDICALLY STABLE. PT NORMALLY AMBULATES INDEPENDENTLY AND HAS A GAIT BELT AND SOMEONE TO ASSIST HER. PT HAS A WHEELCHAIR AND WALKER FOR WHEN THEY LEAVE THE HOME. PT ALSO HAS A NEBULIZER AT HOME. CM SPOKE WITH KIA [phone] AND FAX [phone]. CM FAXED UPDATED CLINICAL TO [facility]. CM WILL CONTINUE TO FOLLOW TO ASSIST NEEDED.
--- NOTE | 2019-08-16 17:00 | NUR ---
pt is continuing o2 2L/MIN/NC and breathing treatment, pt 's breathing and coughing have some improved, pt is confused and she is high fall risk , pt has one sitter with her, pt's vs and o2sat are stable at this time, pt has slowly meeting care plan goals.
[2019-08-16 17:29] VITALS: BP 100/79
[2019-08-16 19:23] VITALS: BP 117/55
--- NOTE | 2019-08-17 02:08 | NUR ---
ASSUMED CARE AT 1900. ASSESSMENT COMPLETED, PT IN NO APPARENT PAIN, NO NAUSEA. AUDIBLE WHEEZING, WON'T LEAVE O2 ON, FREQ COUGH. GAVE BEDSIDE REPORT TO RANDALL PETERSONEMBRYOLOGY TEACHER, TRANSPORTED PT IN BED TO ROOM 420 AT 0130. PT IN STABLE CONDITION, NO OTHER CONCERNS.
--- NOTE | 2019-08-17 05:33 | NUR ---
Patient came to the floor around 2am, alert and oriented to self; denied pain, no n/v; got up to the bathroom with the sitter standing by for help; bed rest. On nasal cannual 2L. Will keep monitoring.
[2019-08-17 08:00] VITALS: BP 140/81
[2019-08-17 16:30] VITALS: BP 106/61
[2019-08-17 16:45] VITALS: BP 137/57
[2019-08-17 19:01] VITALS: BP 135/58
--- NOTE | 2019-08-17 20:37 | NUR ---
PATIENT IS ORIENTED TO SELF AND ONLY WORDS STATES IS "REJI" AND "MOMMA". [facility] SITTER AT BEDSIDE THROUGHOUT THE DAY UNTIL ABOUT 1500. PATIENT ATTEMPING TO GET OUT OF BED. BED ALARM IS ON. [facility] CALLED TODAY INDICATING THEY HAVE NEBULIZER AT [facility] FOR PATIENT. [facility] # [phone]. [facility] TRANSPORT # [phone] AND TRANSPORTERS NAME IS NAKIA. PER DR. MACDONALD, EXPECTED DC IS TOMORROW.
[2019-08-17 22:26] VITALS: BP 138/74
--- NOTE | 2019-08-17 22:40 | NUR ---
WRONG POST FALL ENTERED AND DELETED.
--- NOTE | 2019-08-18 05:09 | NUR ---
Alert and oriented to self; impulsive at times, anixiet medication given according to the order and worked; sitter by the bed side; breath treatment given and worked. afebrile. Will keep monitoring.
[2019-08-18 08:26] VITALS: BP 128/65
--- NOTE | 2019-08-18 11:36 | NUR ---
PT A&O TO SELF. IV INTACT IN R FA. PT LYING IN RECLINER SLEEPING THIS AM. PT IS WITH A SITTER AT THIS TIME. TAKE MEDS CRUSHED IN APPLESAUCE WELL, GOOD APPETITE. PLANS ARE FOR PT TO DC [facility] TODAY. WILL CONT POC.
[2019-08-18 14:36] VITALS: BP 119/62
[2019-08-18 15:30] VITALS: BP 125/59
[2019-08-18 16:30] VITALS: BP 141/77
--- NOTE | 2019-08-18 18:08 | NUR ---
APPROX. AT 1500 DOUBLING MACHINE OPERATOR STATED TO THIS NURSE THAT SHE WAS BEING TAKEN OFF THE 1:1 OBSERVATION TO ANSWERE CALL LIGHTS. I ASKED BY WHO SHE STATED THE CHARGE NURSE. APPROX. 15-20 MIN LATER THE PT WAS OBSERVED IN THE HALLWAY BY THE , RT AND SW FALLING TO THE FLOOR. APPARENTLY THE CHAIR ALARM WAS NOT TURNED ON STATED BY MIAN VANEGAS AND WITNESS. ALL POST OP PROTOCALL HAVE BEEN INITIATED.
[2019-08-18 19:25] VITALS: BP 146/70
[2019-08-19 01:38] VITALS: BP 119/62
--- NOTE | 2019-08-19 03:43 | NUR ---
PT IS O/A TO SELF.PT HAS A SITTER ALL THROUGH SHIFT.IV ACCESS IN PLACE AND INTACT.PT IS ON A PUREE DIET AND PO MEDICATION GIVEN CRUSHED IN APPLE SAUCE.APPETITE IS GREAT.PT WAS AGITATED AND WAS ADM LOREZEPAM.POC CONTINUED TILL EOS
[2019-08-19 04:25] VITALS: BP 140/68
[2019-08-19 07:52] VITALS: BP 140/60
[2019-08-19 08:00] VITALS: BP 140/60
[2019-08-19] MEDS ORDERED: PREDNISONE 20 M20 MG PO (10:00)
[2019-08-19 13:28] VITALS: BP 140/60
--- NOTE | 2019-08-19 13:35 | NUR ---
PT A&O TO SELF, HAS MENTAL RETARDATION. AMBULATES WITH [facility] BY ASSIST. IV INTACT IN R FA. DC ORDERS RECEIVED, PT WILL [facility]. STAFF MEMBER FROM [facility] IN WITH PT AT THIS TIME.
[2019-08-19 13:43] VITALS: BP 140/60
--- NOTE | 2019-08-19 14:48 | NUR ---
PT DISCHARGING TODAY BACK TO [facility] FAXED DC ORDERS/SUMMARY TO [facility] SPOKE WITH AGUSTO FROM THE [facility] HE IS GOING TO TRANSPORT PT BACK TO FACILITY ALSO PT DISCHARGING WITH [facility] SPOKE WITH MARK IN INTAKE SHE RECEIVED DC ORDERS/SUMMARY AND WILL NOTIFY THE [facility] TIME OF VISITS.
--- NOTE | 2019-08-19 16:20 | NUR ---
IV REMOVED FROMR FA. LIZ FROM [facility] IN TO TRANSFER PT. CORK PRESSING MACHINE OPERATOR ESCORTED PT TO MAIN ENTRANCE BY W/oMno
== END 2019-08-19 16:17 | disposition home health service (06) | DRG 202 ==
LOC: ER 07:27 → EROBS 08:48 → 3W 08:48 → 4E 08-17 01:56 → 4S 08-18 13:28
PROVIDERS: Emergency Medicine; ADMIT Hospitalist
DX: J45.902 Unspecified asthma with status asthmaticus (principal); G92 Toxic encephalopathy; F79 Unspecified intellectual disabilities; E78.5 Hyperlipidemia, unspecified; G40.409 Other generalized epilepsy and epileptic syndromes, not intractable, without status epilepticus; Z86.711 Personal history of pulmonary embolism; Z79.01 Long term (current) use of anticoagulants
CPT/HCPCS: 10080; 10084; 10102

== ENCOUNTER 2019-09-10 17:11 | Emergency (ER) | payer OTHER ==
[~2019-09-10] VITALS: Ht 162.6 cm; Wt 83.9 kg
[~2019-09-10 17:11] MED LIST changes: +DEXAMETHASONE 44 M1 PO; +MAPAP500 M1 PO; +STOOL SOFTENER100 M1 PO
[2019-09-10 19:20] LABS: ABSOLUTE NEUTROPHILS 5.6 thou/uL (1.4-8.2); BASOPHILS 0.4 % (0.0-2.0); EOSINOPHILS 0.9 % (0.0-3.0); HEMOGLOBIN 12.3 gm/dL (12.0-15.0); LYMPHOCYTES 15.6 % (24.0-44.0); MCH 30.4 pg (26.0-34.0); MCHC 33.3 g/dL (28.0-37.0); MCV 91.2 fL (80.0-100.0); MONOCYTES 9.6 % (1.0-8.0); PLATELET COUNT 128 thou/uL (150-400); POLYS 73.5 % (36.0-66.0); RBC 4.05 mil/uL (4.20-5.00); RDW 14.4 % (10.5-14.5); WBC 7.7 thou/uL (4.0-11.0)
[2019-09-10 19:23] LABS: URINE BILIRUBIN NEGATIVE (Negative); URINE BLOOD NEGATIVE (Negative); URINE CLARITY CLEAR; URINE COLOR YELLOW; URINE GLUCOSE-RANDOM* NEGATIVE (Negative); URINE KETONES NEGATIVE (Negative); URINE LEUKOCYTES-REFLEX NEGATIVE (Negative); URINE NITRITE-REFLEX NEGATIVE (Negative); URINE PROTEIN (DIPSTICK) NEGATIVE (Negative); URINE SPECIFIC GRAVITY >= 1.030 (1.005-1.035); URINE UROBILINOGEN 0.2 E.U./dl (0.2-1.0)
[2019-09-10 19:30] LABS: ANION GAP 4 mmol/L (7-16); BUN 23 mg/dL (7-18); CALCIUM 7.8 mg/dL (8.5-10.1); CHLORIDE 102 mmol/L (98-107); CO2 32 mmol/L (21-32); CREATININE 0.7 mg/dL (0.6-1.0); GLUCOSE 112 mg/dL (74-106); POTASSIUM 3.3 mmol/L (3.5-5.1); SODIUM 138 mmol/L (136-145)
[2019-09-10 19:31] LABS: AMP/METHAMP Negative (Negative); BARBITURATES Negative (Negative); BENZODIAZEPINES Negative (Negative); COCAINE Negative (Negative); METHADONE Negative (Negative); OPIATES Negative (Negative); PCP Negative (Negative)
[2019-09-10 19:41] LABS: ALBUMIN 2.8 g/dL (3.4-5.0); MAGNESIUM 1.9 mg/dL (1.8-2.4); SGOT 15 U/L (15-37); SGPT 16 U/L (30-65); TOTAL BILIRUBIN 0.4 mg/dL (<0.1-1.0); TOTAL PROTEIN 6.3 g/dL (6.4-8.2); TROPONIN-I <0.06 ng/mL (<0.06)
[2019-09-11 00:20] VITALS: BP 93/44
--- NOTE | 2019-09-11 11:06 | EKG ---
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 Cutter Operator: WG : 1950 Requested By: Kolton Gupta Order Number: [id number] MD: Denys Barnett Measurements Intervals [place] Rate: 81 P: 53 [place]: 200 QRS: -30 QRSD: 88 T: 57 QT: 389 QTc: 452 Interpretive Statements Sinus rhythm Abnormal R-wave progression, early transition Inferior infarct, old Compared to ECG 08/15/2019 07:47:40 Inferior Q waves are more prominent Electronically Signed On 09-11-2019 11:05:54 CDT by Denys Barnett [email or web address] <ELECTRONICALLY SIGNED> By: Denys Barnett MD, [facility] 09/11/19 1105 1738 37 Denys Barnett MD, [facility] /EPI
== END 2019-09-11 00:21 | disposition home or self-care (01) ==
LOC: ER 17:11
PROVIDERS: Emergency Medicine
DX: R41.82 Altered mental status, unspecified (principal); J45.909 Unspecified asthma, uncomplicated; M85.80 Other specified disorders of bone density and structure, unspecified site; F79 Unspecified intellectual disabilities; Z87.440 Personal history of urinary (tract) infections; Z86.711 Personal history of pulmonary embolism

== ENCOUNTER 2019-10-11 19:05 | Emergency (ER) | payer OTHER ==
[~2019-10-11] VITALS: Ht 142.2 cm; Wt 61.0 kg
[2019-10-11] MEDS ORDERED: PREDNISONE 20 M20 MG PO (21:26)
[2019-10-11 21:44] VITALS: BP 123/54
== END 2019-10-11 21:50 | disposition home or self-care (01) ==
LOC: ER 19:05
DX: R05 Cough (principal); J45.909 Unspecified asthma, uncomplicated; Z86.711 Personal history of pulmonary embolism

== ENCOUNTER → 2019-11-16 | Outpatient (CLI) | payer OTHER ==
--- NOTE | ~2019-11-16 | EEG ---
[facility] [place] [address] ELECTROENCEPHALOGRAM Name: GILMAR ELDER Room #: REG [facility].#: [id number] Admission: 11/16/19 Attend Phys: Physician not on staf Discharge: Date of : 52 Report #: [id number] THIS REPORT FOR: //name// CC: MINISTERIO Adams Physician staff DATE OF SERVICE: 11/16/2019 This patient's EEG was done to evaluate for the possibility of seizure. EEG was done by placing the electrode by standard 10-20 system of electrode placement. Both referential and sequential montages were used for recording. Background activity appeared to be about 8-9 Hz and 30 microvolt. The patient went to sleep and that is associated with bilateral slowing and vertex sharp waves. Photic stimulation is unremarkable. The patient has repeated episodes of spike and slow wave activity during this EEG. IMPRESSION: This is an abnormal EEG because the patient's EEG demonstrates repeated episodes of epileptiform activity throughout the EEG. Clinical correlation and further workup and management is recommended. This report was called to the referring physician Dr. Adams by myself. By: [id number] Jovani Correia MD /nt
== END ==
LOC: NEURO 11-15 15:51
DX: G40.909 Epilepsy, unspecified, not intractable, without status epilepticus (principal)

== ENCOUNTER 2019-12-14 18:30 | Emergency (ER) | payer OTHER ==
[~2019-12-14] VITALS: Ht 149.9 cm; Wt 56.7 kg
[2019-12-14 21:11] LABS: ABSOLUTE NEUTROPHILS 2.2 thou/uL (1.4-8.2); BASOPHILS 2.3 % (0.0-2.0); EOSINOPHILS 12.7 % (0.0-3.0); HEMATOCRIT 40.1 % (37.0-47.0); HEMOGLOBIN 13.2 gm/dL (12.0-15.0); LYMPHOCYTES 27.4 % (24.0-44.0); MCH 30.2 pg (26.0-34.0); MCV 91.6 fL (80.0-100.0); MONOCYTES 8.4 % (1.0-8.0); PLATELET COUNT 121 thou/uL (150-400); POLYS 49.2 % (36.0-66.0); RBC 4.38 mil/uL (4.20-5.00); RDW 14.2 % (10.5-14.5); WBC 4.5 thou/uL (4.0-11.0)
[2019-12-14 21:23] LABS: ANION GAP 1 mmol/L (7-16); BUN 14 mg/dL (7-18); CHLORIDE 102 mmol/L (98-107); CO2 35 mmol/L (21-32); CREATININE 0.8 mg/dL (0.6-1.0); GLUCOSE 95 mg/dL (74-106); POTASSIUM 3.5 mmol/L (3.5-5.1); SODIUM 138 mmol/L (136-145)
[2019-12-14 21:28] LABS: TROPONIN-I <0.06 ng/mL (<0.06)
[2019-12-14] MEDS ORDERED: DOXYCYCLINE 10100 MG PO (21:58)
[2019-12-14] MEDS ORDERED: ALBUTEROL2.5 MG/31 INH (21:58)
[2019-12-14] MEDS ORDERED: PREDNISONE 20 M20 MG PO (21:58)
[2019-12-14 22:15] VITALS: BP 114/57
--- NOTE | 2019-12-15 08:01 | EKG ---
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
== END 2019-12-14 22:39 ==
LOC: ER 18:30
PROVIDERS: Nurse Practitioner Family
DX: J18.9 Pneumonia, unspecified organism (principal); J45.909 Unspecified asthma, uncomplicated; Z86.711 Personal history of pulmonary embolism; Z87.440 Personal history of urinary (tract) infections

== ENCOUNTER → 2020-04-12 | Outpatient (CLI) | payer OTHER | LOC: RAD 10:52 | DX: J98.4 Other disorders of lung (principal) ==

== ENCOUNTER 2020-06-16 14:10 | Emergency (ER) | payer OTHER ==
[~2020-06-16] VITALS: Ht 149.9 cm; Wt 59.0 kg
[2020-06-16 14:11] VITALS: BP 107/57
[2020-06-16 16:48] LABS: ABSOLUTE NEUTROPHILS 2.9 thou/uL (1.4-8.2); BASOPHILS 1.4 % (0.0-2.0); EOSINOPHILS 14.3 % (0.0-3.0); HEMATOCRIT 40.2 % (37.0-47.0); HEMOGLOBIN 13.4 gm/dL (12.0-15.0); LYMPHOCYTES 19.4 % (24.0-44.0); MCH 30.8 pg (26.0-34.0); MCHC 33.4 g/dL (28.0-37.0); MCV 92.1 fL (80.0-100.0); MONOCYTES 8.1 % (1.0-8.0); PLATELET COUNT 122 thou/uL (150-400); POLYS 56.8 % (36.0-66.0); RBC 4.37 mil/uL (4.20-5.00); RDW 13.6 % (10.5-14.5); WBC 5.1 thou/uL (4.0-11.0)
[2020-06-16 17:05] LABS: CALCIUM 8.1 mg/dL (8.5-10.1); CREATININE 0.8 mg/dL (0.6-1.0)
== END 2020-06-16 20:29 | disposition home or self-care (01) ==
LOC: ER 14:10
PROVIDERS: Nurse Practitioner
DX: R05 Cough (principal); Z20.828 Contact with and (suspected) exposure to other viral communicable diseases; J45.909 Unspecified asthma, uncomplicated; Z86.711 Personal history of pulmonary embolism; Z79.899 Other long term (current) drug therapy

== ENCOUNTER 2020-09-15 11:28 | Inpatient (IN) | payer OTHER ==
[~2020-09-15] VITALS: Ht 157.5 cm; Wt 63.0 kg
[2020-09-15 11:29] VITALS: BP 113/66
[2020-09-15 12:14] LABS: ABSOLUTE NEUTROPHILS 3.4 thou/uL (1.4-8.2); BASOPHILS 0.7 % (0.0-2.0); EOSINOPHILS 13.5 % (0.0-3.0); HEMATOCRIT 39.3 % (37.0-47.0); HEMOGLOBIN 12.9 gm/dL (12.0-15.0); LYMPHOCYTES 16.3 % (24.0-44.0); MCH 30.7 pg (26.0-34.0); MCHC 32.9 g/dL (28.0-37.0); MCV 93.2 fL (80.0-100.0); POLYS 62.5 % (36.0-66.0); RBC 4.22 mil/uL (4.20-5.00); RDW 14.4 % (10.5-14.5); WBC 5.5 thou/uL (4.0-11.0)
--- NOTE | 2020-09-15 12:49 | EKG ---
[facility] [place] [address] ELECTROCARDIOGRAM REPORT Name: GILMAR ELDER Room #: REG [facility]#: [id number] Admission: 09/15/20 Attend Phys: Discharge: Date of : 52 Report #: [id number] THIS REPORT FOR: cc: Misha Adams MD, Kirk D. MD [place], Patrick MD [facility] ~ THIS REPORT FOR: //name// [facility] ED Test Date: 2020-09-15 Test Time: 12:03:54 Pat Name: GILMAR ELDER Department: Room: Gender: F Health/Safety Job Titles: : 1950 Requested By: Lalita Travis Order Number: [id number] MD: Micah Covarrubias Measurements Intervals [place] Rate: 96 P: 67 [place]: 182 QRS: 15 QRSD: 87 T: 73 QT: 352 QTc: 445 Interpretive Statements Sinus rhythm Compared to ECG 12/14/2019 20:39:59 No significant changes Electronically Signed On 09-15-2020 12:48:57 CDT by Micah Covarrubias [email or web address] <ELECTRONICALLY SIGNED> By: Micah Covarrubias MD, FACC 09/15/20 1248 120 120 Micah Covarrubias MD, FAC /EPI
[2020-09-15 12:55] LABS: PLATELET COUNT 123 thou/uL (150-400)
[2020-09-15 13:14] LABS: ANION GAP 11 mmol/L (7-16); BUN 16 mg/dL (7-18); CALCIUM 8.8 mg/dL (8.5-10.1); CHLORIDE 108 mmol/L (98-107); CO2 27 mmol/L (21-32); CREATININE 0.5 mg/dL (0.6-1.0); GLUCOSE 142 mg/dL (74-106); POTASSIUM 4.6 mmol/L (3.5-5.1); SODIUM 146 mmol/L (136-145)
[2020-09-15 13:23] LABS: ALBUMIN 3.1 g/dL (3.4-5.0); SGOT 27 U/L (15-37); SGPT 16 U/L (30-65); TOTAL BILIRUBIN 0.3 mg/dL (0.2-1.0); TOTAL PROTEIN 6.5 g/dL (6.4-8.2); TROPONIN-I <0.06 ng/mL (<0.06)
--- NOTE | 2020-09-15 14:06 | NUR ---
RETURNED FROM CT SCAN
[2020-09-15 15:39] VITALS: BP 119/64
[2020-09-15 15:59] VITALS: BP 131/70
--- NOTE | 2020-09-15 16:20 | NUR ---
RIKY PTS CAREGIVER AND PENITENTIARY CALLED AND INFORMATION OBTAINED. HE STATES HE WILL CONTACT SISTERS.
[2020-09-15 16:54] LABS: TSH 3.694 uIU/mL (0.358-3.740)
--- NOTE | 2020-09-15 17:00 | NUR ---
SISTER REJI CALLED AND VOICEMAIL LEFT ASKING HER TO CALL BACK REGUARDING PTS ADMISSION.
[2020-09-15 17:23] LABS: FOLIC ACID 27.1 ng/mL (8.6-58.9)
[2020-09-15 19:03] VITALS: BP 142/59
[2020-09-16 03:52] VITALS: BP 122/56
[2020-09-16 06:18] LABS: BASOPHILS 0.1 % (0.0-2.0); EOSINOPHILS 0.1 % (0.0-3.0); HEMATOCRIT 43.1 % (37.0-47.0); LYMPHOCYTES 8.2 % (24.0-44.0); MCH 30.1 pg (26.0-34.0); MCHC 32.5 g/dL (28.0-37.0); MCV 92.8 fL (80.0-100.0); MONOCYTES 2.1 % (1.0-8.0); PLATELET COUNT 135 thou/uL (150-400); POLYS 89.5 % (36.0-66.0); RBC 4.64 mil/uL (4.20-5.00); RDW 14.4 % (10.5-14.5); WBC 4.4 thou/uL (4.0-11.0)
[2020-09-16 06:33] LABS: CALCIUM 8.1 mg/dL (8.5-10.1); CREATININE 0.8 mg/dL (0.6-1.0); MAGNESIUM 2.4 mg/dL (1.8-2.4); POTASSIUM 3.7 mmol/L (3.5-5.1)
--- NOTE | 2020-09-16 07:33 | NUR ---
PROGRESS PT PLEASANT AND COOPERATIVE, CALLS OUT "MAMA" OR KNOCKS WHEN SHE NEEDS SOMETHING. UP TO BATHROOM WITH ASSIST OF 1 FOR SAFETY. HAD 2 LARGE SOFT BM'S VOIDING QS. PT CONTINENT BUT WAITING FOR ESCORT TO BATHROOM AND URGENCY OF BM CAUSED HER TO BE INCONTINENT AND SHE GOT VERY UPSET AND CRIED RUBBED BACK AND HELD HER HAND AND SHE SETTLED DOWN. LUNGS COARSE THROUGHOUT AND PT HAS A VERY FREQUENT PRODUCTIVE COUGH BUT SWALLOWS BEFORE SAMPLE OBTAINED. TOLERATED THIN LIQUIDS, APPLESAUCE AND PUDDING. NO SKIN BREAKDOWN NOTED NEEDS ASSISTANCE WITH ALL ADLS.
[2020-09-16 07:35] VITALS: BP 105/49
[2020-09-16 15:20] VITALS: BP 137/59
--- NOTE | 2020-09-16 18:46 | NUR ---
RN ASSUMED PT'S CARE AT 0700AM, PT IS CONFUSED , AND PT NEEDS HELP ADL AND MEALS, PT HAS 4 TIMES BM TODAY, PT'S ABD DISTENTION HAS IMPROVED, PT'S VS ARE STABLE, BUT PT STILL HAS COUGHING AND WHEEZES, PT'S FIRST TIME COVID TEST WAS NEGATIVE, PT HAD SECOND TIME COVID TEST AT 1800PM PER ORDER,
[2020-09-16 19:38] VITALS: BP 128/64
--- NOTE | 2020-09-16 21:58 | NUR ---
PT CONFUSED. COMMUNICATES WITH HER HANDS FOR BR ETC. SHE IS ABLE TO SWALLOW MEDS CRUSHED IN APPLE SAUCE WITHOUT DIFFICULTY. NO S/S PAIN OR DISTRESS. VSS. BS 92. WILL CONTINUE TO MONITOR PT FOR CHANGES.
[2020-09-17 03:48] VITALS: BP 131/64
--- NOTE | 2020-09-17 05:16 | NUR ---
PT RESTING QUIETLY THIS AM BSS AFEBRILE. NO S/S DISTRESS. PROGRESSING TOWARDS DC GOALS.
[2020-09-17 07:16] VITALS: BP 134/56
[2020-09-17] MEDS ORDERED: CEFUROXIME500 MG PO (09:00)
[2020-09-17 11:13] VITALS: BP 142/67
[2020-09-17 15:34] VITALS: BP 138/73
--- NOTE | 2020-09-17 17:00 | NUR ---
RN ASSUMED PT'S CARE AT 0700AM , PT IS UNVERBAL, PT CAN FOLLOW SOME COMMANDS, PT HAD 2 TIMES NEGATIVE COVID TEST , PT'S ISOLATION HAD DC, PT DOES NOT HAVE SOB AND FEVER, PT'S VS ARE STABLE, PT'S PLAN IS DC TO FACILITY TOMORROW.
[2020-09-17 19:21] VITALS: BP 155/76
--- NOTE | 2020-09-17 23:12 | NUR ---
PT MAILY NONVERBAL. FOLLOWS COMMANDS AND HAND GESTURES. SHE IS PLEASANT AND COOPERATIVE. INC OF STOOL LG AMTS. MOISTURE BARRIER APPLIED. FED PT HER DINNER. SHE TOLERATED WELL. NO S/S PAIN. NO S/S DISTRESS. BEDE DOWN CALL LIGHT IN REACH. BED ALARM IS ON.
[2020-09-18 03:53] VITALS: BP 110/45
--- NOTE | 2020-09-18 07:01 | NUR ---
PT TRANSFERRED VIA BED THIS AM AT AROUND 0530 FROM [facility].PT IS IN NO ACUTE DISTRESS.ON O2 ST 2LITERS PNC.PT HAS WHEEZES THROUGHOUT.NONVERBAL.VSS.NO ACUTE DISTRESS NOTED.WILL CONT TO MONITOR PER POC.
[2020-09-18 07:45] VITALS: BP 121/60
--- NOTE | 2020-09-18 09:01 | NUR ---
LATE ENTRY FROM 09/17/20: REVIEWED CASE WITH RN DURING PRIME TIME ROUNDS, PLAN FOR DC BACK TO GROUP 09/17/20. PT FROM [facility]. SPOKE WITH PT'S SISTER/GUARDAIN REJI BUSTILLOS AND SISTER GODFREY TODD (REJI'S REQUEST) ON 09/17/20 AND BOTH AGREEABLE TO DC. SPOEK WITH INFORMATICS SCIENTIST RIKY CASTRO [phone]. BRNET INDICATED UNABLE TO ACCEPT BACK 09/17/20 NO RN AT [facility] AVAILABLE TO REVIEW DC ORDERS/SUMMARY AND ASSESS RESIDENT ON RETURN UNTIL 09/18/20. UPDATED SISTERS WHO ARE AGREEABLE TO DC 09/18/20. UPDATED DR. CHRISTIANSEN AND 3W RN.
--- NOTE | 2020-09-18 10:56 | NUR ---
SPOKE WITH DR CHRISTIANSEN ABOUT PT WHEEZING AND COARSE LUNG SOUNDS. HE STATED HE THINKS PT IS AT BASELINE AND IS OK TO GO BACK TO RESIDENTIAL ON ABX. BREATHING TREATMENT WAS GIVEN AND PT WHEEZING IMPROVED
[2020-09-18 11:00] VITALS: BP 108/60
--- NOTE | 2020-09-18 11:14 | NUR ---
PT CORAZON LAN FROM [facility] CALLED, STATES HE IS CONCERNED PT IS NOT GOING TO BE ABLE TO GET AROUND AT [facility] D/T NOT HAVING BEEN WALKING WHILE IN HOSPITAL,. ASKED THAT WE HAVE THERAPY EVALUATE BEFORE SENDING PT BACK. TOLD AMBERWILFRIDO CALLED TO SAY PT HAD TRANSPORT SET UP FOR NOW, INFORMED HER OF RIKY CONCERN, CANCELED TRANSPORT UNTIL THERAPY SEES PT
--- NOTE | 2020-09-18 13:49 | NUR ---
PT/OT WORKED WITH PT. PT WALKED IN SONI WITH WALKER. PT ALSO UP TO COMMODE AT LEAST 5 TIMES THIS MORNING WITH SBA
[2020-09-18 14:23] VITALS: BP 108/60
--- NOTE | 2020-09-18 15:04 | NUR ---
[facility]CHARG[facility] FA[facility] DC ORDERS/SUMMARY SPOKE WITH RIKY IN ADM HE RECEIVED ORDERS THEY DO NOT HAVE TRANSPORT TODAY TRANSPORT WC VAN ARRANGED WITH [facility] FOR [phone] TODAY. LEFT MSG WITH PT'S SISTER (REJI) OF DC AND TIME OF TRANSPORT. UNIT NOTIFIED.
--- NOTE | 2020-09-18 15:51 | NUR ---
TRANSPORTATION HERE TO GET PT. PT DRESSED, PIV AND TELE WERE REMOVED EARLIER. PT PACKET GIVEN TO TRANSPORT .
[2020-09-18 15:54] VITALS: BP 108/60
--- NOTE | 2020-09-18 15:54 | NUR ---
REPORT CALLED TO SHELTER
--- NOTE | 2020-09-18 17:45 | NUR ---
Patient to dc to [facility] home today. Dc shutdown planner to assist with transport return to facility. Chart copied. Rn called report. SP with facility and coordinated return and verified pharmacy for scripts correct in systmem. No further needs.
== END 2020-09-18 15:53 | disposition home health service (06) | DRG 871 ==
LOC: ER 11:28 → EROBS 15:11 → 3W 15:11 → 2N 09-18 06:11
PROVIDERS: Nurse Practitioner; Physician Assistant; ADMIT Hospitalist; ATTEND Hospitalist
DX: A41.9 Sepsis, unspecified organism (principal); J18.9 Pneumonia, unspecified organism; J96.00 Acute respiratory failure, unspecified whether with hypoxia or hypercapnia; E87.0 Hyperosmolality and hypernatremia; J45.909 Unspecified asthma, uncomplicated; K56.41 Fecal impaction; E78.5 Hyperlipidemia, unspecified; G31.84 Mild cognitive impairment of uncertain or unknown etiology; Z20.828 Contact with and (suspected) exposure to other viral communicable diseases; Z86.711 Personal history of pulmonary embolism; Z79.01 Long term (current) use of anticoagulants; Z87.440 Personal history of urinary (tract) infections; Z79.899 Other long term (current) drug therapy
CPT/HCPCS: 10879

== ENCOUNTER 2020-10-06 14:43 | Emergency (ER) | payer OTHER ==
[~2020-10-06] VITALS: Ht 157.5 cm; Wt 55.3 kg
[~2020-10-06 14:43] MED LIST changes: +CEFUROXIME500 MG PO
[2020-10-06 15:48] LABS: BE(vivo) 2.1 mmol/L (-2 to +3); HCO3 28.2 mmol/L (22.0-26.0); PCO2 49.7 mmHg (35.0-45.0); pH 7.371 (7.360-7.450); sO2 93.9 % (92.0-98.0)
[2020-10-06 16:02] LABS: ABSOLUTE NEUTROPHILS 2.8 thou/uL (1.4-8.2); BASOPHILS 0.8 % (0.0-2.0); EOSINOPHILS 14.5 % (0.0-3.0); HEMATOCRIT 39.4 % (37.0-47.0); HEMOGLOBIN 13.2 gm/dL (12.0-15.0); LYMPHOCYTES 22.4 % (24.0-44.0); MCH 30.9 pg (26.0-34.0); MCHC 33.5 g/dL (28.0-37.0); MCV 92.2 fL (80.0-100.0); MONOCYTES 10.8 % (1.0-8.0); PLATELET COUNT 125 thou/uL (150-400); POLYS 51.5 % (36.0-66.0); RBC 4.27 mil/uL (4.20-5.00); RDW 14.2 % (10.5-14.5); WBC 5.3 thou/uL (4.0-11.0)
[2020-10-06 16:21] LABS: ALBUMIN 3.3 g/dL (3.4-5.0); ANION GAP 6 mmol/L (7-16); BUN 18 mg/dL (7-18); CHLORIDE 106 mmol/L (98-107); CO2 30 mmol/L (21-32); CREATININE 0.7 mg/dL (0.6-1.0); GLUCOSE 150 mg/dL (74-106); POTASSIUM 3.8 mmol/L (3.5-5.1); SGOT 23 U/L (15-37); SGPT 13 U/L (30-65); SODIUM 142 mmol/L (136-145); TOTAL BILIRUBIN 0.3 mg/dL (0.2-1.0); TOTAL PROTEIN 6.9 g/dL (6.4-8.2); TROPONIN-I <0.06 ng/mL (<0.06)
[2020-10-06 16:27] LABS: CALCIUM 8.4 mg/dL (8.5-10.1)
[2020-10-06] MEDS ORDERED: LASIX 20 MG TAB20 MG PO (16:38)
[2020-10-06] MEDS ORDERED: PREDNISONE 20 M20 MG PO (16:38)
[2020-10-06 18:21] VITALS: BP 148/70
== END 2020-10-06 18:21 | disposition short-term general hospital (02) ==
LOC: ER 14:43
PROVIDERS: Physician Assistant
DX: R06.02 Shortness of breath (principal); J45.909 Unspecified asthma, uncomplicated; Z79.899 Other long term (current) drug therapy; Z20.828 Contact with and (suspected) exposure to other viral communicable diseases

== ENCOUNTER 2020-10-24 17:33 | Emergency (ER) | payer OTHER ==
[~2020-10-24] VITALS: Ht 157.5 cm; Wt 71.2 kg
[~2020-10-24 17:33] MED LIST changes: +LASIX 20 MG TAB20 MG PO
[2020-10-24 19:11] LABS: ABSOLUTE NEUTROPHILS 3.9 thou/uL (1.4-8.2); BASOPHILS 0.7 % (0.0-2.0); EOSINOPHILS 8.4 % (0.0-3.0); HEMATOCRIT 37.5 % (37.0-47.0); HEMOGLOBIN 12.6 gm/dL (12.0-15.0); LYMPHOCYTES 24.4 % (24.0-44.0); MCH 31.1 pg (26.0-34.0); MCHC 33.5 g/dL (28.0-37.0); MCV 92.7 fL (80.0-100.0); MONOCYTES 8.1 % (1.0-8.0); PLATELET COUNT 116 thou/uL (150-400); POLYS 58.4 % (36.0-66.0); RBC 4.04 mil/uL (4.20-5.00); WBC 7.8 thou/uL (4.0-11.0)
[2020-10-24 19:32] LABS: URINE BILIRUBIN NEGATIVE (Negative); URINE BLOOD NEGATIVE (Negative); URINE CLARITY CLEAR; URINE COLOR YELLOW; URINE GLUCOSE-RANDOM* NEGATIVE (Negative); URINE KETONES NEGATIVE (Negative); URINE LEUKOCYTES-REFLEX TRACE (Negative); URINE NITRITE-REFLEX NEGATIVE (Negative); URINE PROTEIN (DIPSTICK) NEGATIVE (Negative)
[2020-10-24 19:37] LABS: CALCIUM 8.2 mg/dL (8.5-10.1); CREATININE 0.7 mg/dL (0.6-1.0); POTASSIUM 3.7 mmol/L (3.5-5.1)
[2020-10-24 19:50] VITALS: BP 124/52
--- NOTE | 2020-10-25 06:02 | NUR ---
CALLED "HOME" THAT PATIENT RESIDES IN TO GIVE NEGATIVE COVID RESULTS TO STAFF. THIS NURSE SPOKE WITH SUHA NELSON, THE GRAPE PRUNER TO REPORT NEGATIVE COVID RESULTS NO FURTHER QUESTIONS AT THIS TIME
== END 2020-10-24 19:50 ==
LOC: ER 17:33
PROVIDERS: Emergency Medicine
DX: R50.9 Fever, unspecified (principal); R06.02 Shortness of breath; J45.909 Unspecified asthma, uncomplicated; Z79.899 Other long term (current) drug therapy; Z20.828 Contact with and (suspected) exposure to other viral communicable diseases

== ENCOUNTER 2020-11-11 15:40 | Emergency (ER) | payer OTHER ==
[~2020-11-11] VITALS: Ht 165.1 cm; Wt 68.0 kg
[2020-11-11 17:08] LABS: HEMATOCRIT 40.8 % (37.0-47.0); HEMOGLOBIN 13.4 gm/dL (12.0-15.0); MCV 91.1 fL (80.0-100.0); PLATELET COUNT 83 thou/uL (150-400); RBC 4.47 mil/uL (4.20-5.00); RDW 13.4 % (10.5-14.5); WBC 2.4 thou/uL (4.0-11.0)
[2020-11-11 17:15] LABS: ANION GAP 10 mmol/L (7-16); BUN 33 mg/dL (7-18); CALCIUM 8.4 mg/dL (8.5-10.1); CHLORIDE 105 mmol/L (98-107); CO2 29 mmol/L (21-32); CREATININE 0.9 mg/dL (0.6-1.0); GLUCOSE 125 mg/dL (74-106); POTASSIUM 4.1 mmol/L (3.5-5.1); SODIUM 144 mmol/L (136-145)
[2020-11-11 17:27] LABS: ALBUMIN 3.1 g/dL (3.4-5.0); DIRECT BILIRUBIN < 0.1 mg/dL (<0.1-0.2); SGOT 31 U/L (15-37); SGPT 23 U/L (14-59); TOTAL BILIRUBIN 0.2 mg/dL (0.2-1.0); TOTAL PROTEIN 6.4 g/dL (6.4-8.2); TROPONIN-I <0.06 ng/mL (<0.06)
[2020-11-11 17:37] LABS: APTT 29.6 Seconds (24.5-32.8); PROTIME 10.5 Seconds (9.3-11.4)
[2020-11-11 17:40] LABS: ANISOCYTOSIS 1+
[2020-11-11] MEDS ORDERED: PREDNISONE 20 M20 MG PO (18:23)
[2020-11-11 18:32] VITALS: BP 108/64
--- NOTE | 2020-11-14 07:13 | EKG ---
[place] [address] [address] [place] [address] ELECTROCARDIOGRAM REPORT Name: GILMAR ELDER Room #: DEP 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: : 1950 Requested By: Rachelle Flower Order Number: [id number] MD: Micah Covarrubias Measurements Intervals [place] Rate: 81 P: 48 [place]: 195 QRS: -19 QRSD: 86 T: 59 QT: 395 QTc: 459 Interpretive Statements Sinus rhythm Inferior infarct, old Baseline wander in lead(s) V5 Compared to ECG 09/15/2020 12:03:54 Myocardial infarct finding now present Electronically Signed On 11-14-2020 7:13:30 FIELD SERVICE TECH by Micah Covarrubias [email or web address] <ELECTRONICALLY SIGNED> By: Micah Covarrubias MD, [facility] 11/14/20 0713 D: 12/1755 55 Micah Covarrubias MD, FACC /EPI
== END 2020-11-11 19:10 ==
LOC: ER 15:40
PROVIDERS: Emergency Medicine
DX: U07.1 COVID-19 (principal); J45.909 Unspecified asthma, uncomplicated; Z86.711 Personal history of pulmonary embolism; Z79.2 Long term (current) use of antibiotics; Z79.899 Other long term (current) drug therapy

== ENCOUNTER 2020-12-08 21:35 | Inpatient (IN) | payer OTHER ==
[~2020-12-08] VITALS: Ht 152.4 cm; Wt 58.5 kg
[2020-12-08 21:38] VITALS: BP 96/39
[2020-12-08 22:11] LABS: ABSOLUTE NEUTROPHILS 3.6 thou/uL (1.4-8.2); BASOPHILS 0.3 % (0.0-2.0); EOSINOPHILS 0.3 % (0.0-3.0); HEMATOCRIT 51.1 % (37.0-47.0); HEMOGLOBIN 16.1 gm/dL (12.0-15.0); LYMPHOCYTES 11.6 % (24.0-44.0); MCH 30.1 pg (26.0-34.0); MCHC 31.5 g/dL (28.0-37.0); MCV 95.5 fL (80.0-100.0); MONOCYTES 11.9 % (1.0-8.0); PLATELET COUNT 138 thou/uL (150-400); POLYS 75.9 % (36.0-66.0); RBC 5.35 mil/uL (4.20-5.00); RDW 16.2 % (10.5-14.5); WBC 4.8 thou/uL (4.0-11.0)
[2020-12-08 22:15] LABS: URINE BILIRUBIN NEGATIVE (Negative); URINE BLOOD NEGATIVE (Negative); URINE CLARITY CLEAR; URINE COLOR YELLOW; URINE GLUCOSE-RANDOM* NEGATIVE (Negative); URINE KETONES NEGATIVE (Negative); URINE LEUKOCYTES-REFLEX NEGATIVE (Negative); URINE NITRITE-REFLEX NEGATIVE (Negative); URINE PROTEIN (DIPSTICK) NEGATIVE (Negative); URINE SPECIFIC GRAVITY 1.025 (1.005-1.035); URINE UROBILINOGEN 0.2 E.U./dl (0.2-1.0)
[2020-12-08 22:25] LABS: AMP/METHAMP Negative (Negative); BARBITURATES Negative (Negative); BENZODIAZEPINES Negative (Negative); COCAINE Negative (Negative); METHADONE Negative (Negative); OPIATES Negative (Negative); PCP Negative (Negative)
[2020-12-08 22:26] LABS: ALBUMIN 3.3 g/dL (3.4-5.0); ANION GAP 9 mmol/L (7-16); BUN 81 mg/dL (7-18); CALCIUM 8.7 mg/dL (8.5-10.1); CHLORIDE 127 mmol/L (98-107); CO2 30 mmol/L (21-32); CREATININE 2.8 mg/dL (0.6-1.0); DIRECT BILIRUBIN 0.1 mg/dL (<0.1-0.2); GLUCOSE 175 mg/dL (74-106); POTASSIUM 4.6 mmol/L (3.5-5.1); SGOT 46 U/L (15-37); SGPT 47 U/L (30-65); TOTAL BILIRUBIN 0.7 mg/dL (0.2-1.0); TOTAL PROTEIN 7.1 g/dL (6.4-8.2); TROPONIN-I <0.06 ng/mL (<0.06)
[2020-12-08 22:29] LABS: SODIUM 166 mmol/L (136-145)
[2020-12-08 22:52] LABS: BE(vivo) -0.3 mmol/L (-2 to +3); HCO3 26.4 mmol/L (22.0-26.0); PCO2 50.9 mmHg (35.0-45.0); PO2 96.6 mmHg (80.0-100.0); pH 7.333 (7.360-7.450); sO2 96.9 % (92.0-98.0)
[2020-12-08] MEDS ORDERED: BUMETANIDE 1 MG1 M1 PO (23:20)
[2020-12-08] MEDS ORDERED: BROVANA15 MCG/2 M INH (23:22)
[2020-12-08] MEDS ORDERED: ELIQUIS5 MG PO (23:22)
[2020-12-08] MEDS ORDERED: IPRATROPIU0.2 MG/1 M INH (23:23)
[2020-12-08] MEDS ORDERED: TRAZODONE HCL50 MG PO (23:23)
[2020-12-08] MEDS ORDERED: GUAIFENESIN200 MG PO (23:23)
[2020-12-08] MEDS ORDERED: PROAIR HFA8.5 GM INH (23:25)
[2020-12-08] MEDS ORDERED: ALBUTEROL2.5 MG/0.5 INH (23:25)
[2020-12-08] MEDS ORDERED: MILK OF MA400 MG/5 M PO (23:59)
[2020-12-09] VITALS (9 sets, daily range): BP systolic 91–116; BP diastolic 47–64
[2020-12-09] MEDS ORDERED: ACETAMINOPHEN500 MG PO
[2020-12-09 05:48] LABS: HEMATOCRIT 47.2 % (37.0-47.0); HEMOGLOBIN 14.4 gm/dL (12.0-15.0); MCH 30.4 pg (26.0-34.0); MCHC 30.4 g/dL (28.0-37.0); MCV 99.9 fL (80.0-100.0); RBC 4.73 mil/uL (4.20-5.00); RDW 16.3 % (10.5-14.5); WBC 3.7 thou/uL (4.0-11.0)
[2020-12-09 06:00] LABS: CALCIUM 7.9 mg/dL (8.5-10.1); POTASSIUM 3.9 mmol/L (3.5-5.1)
--- NOTE | 2020-12-09 06:08 | NUR ---
PT ADMITTED TO RM 361 FROM ER NONVERBAL AND NR AROUND 0040. THIS AM ASSESSMENT SHE OPENS EYES BRIEFLY TO PAINFUL STIMULI. SHE WILL NOW SAY "MAMMA" AND IS BECOMING MORE ALERT. SHE WAS ABLE TO WEAKLY GRASP BOTH HANDS. SODIUM THIS AM IS DOWN TO 162. CALLED RESULTS TO LOAD MIXER. NO ORDERS GIVEN. SIDERAILS WRAPPED FOR SZ PRECAUTIONS. SUCTION AT HOB. BED ALARM ON. BED IN LOW LOCKED POSITION. D5W INFUSING WITHOUT DIFFICULTYRIGHT HAND. O2 SAT 91% ON 0LNC. PLACED PT BACK ON 1LNC. SAT CAME UP TO 93%. NO SKINBREAKDOWN NOTED. LAM DRAINING CLEAR YELLOW URINE.
--- NOTE | 2020-12-09 09:06 | EKG ---
[address] [address] ELECTROCARDIOGRAM REPORT Name: GILMAR ELDER Room #: 361-P ADM IN M.R.#: [id number] Admission: 12/08/20 Attend Phys: Oriana Fuentes MD Discharge: Date of : 52 Report #: [id number] [facility] ED Test Date: 2020-12-08 Test Time: 21:44:27 Pat Name: GILMAR ELDER Department: Room: 361 Gender: F Patient Experience Coordinator: ZEINA : 1950 Requested By: Rachelle Flower Order Number: [id number] MD: Brennan Lewis Measurements Intervals [place] Rate: 123 P: 45 [place]: 145 QRS: -32 QRSD: 77 T: 69 QT: 325 QTc: 465 Interpretive Statements Sinus tachycardia Abnormal R-wave progression, late transition Inferior infarct, old Compared to ECG 11/11/2020 17:56:06 Sinus rhythm no longer present Myocardial infarct finding still present Electronically Signed On 12-09-2020 9:06:03 CLAY THROWER by Brennan Lewis [email or web address] <ELECTRONICALLY SIGNED> By: Brennan Lewis MD 12/09/20905 43 43 Brennan Lewis MD /ROSALIA
--- NOTE | 2020-12-09 16:38 | NUR ---
CARE ASSUMED AT 0700, PT CONTINUES TO BE LETHARGIC, WAKES UP TO HER NAME BUT UNABLE TO WAKE FOR LONGER. UNABLE TO FOLLOW SIMPLE COMMANDS. ON 1L OF OXYGEN, NO SIGNS OF DISTRESS NOTED. SEIZURE PRECAUTIONS AND FALL PRECAUTIONS IN PLACE. WILL CONTINUE TO MONITOR.
[2020-12-10 04:16] VITALS: BP 98/52
[2020-12-10 05:36] LABS: GLYCOHEMOGLOBIN (HGB A1C) 6.1 % (4.8-5.6)
[2020-12-10 06:24] LABS: ABSOLUTE NEUTROPHILS 6.5 thou/uL (1.4-8.2); BASOPHILS 0.1 % (0.0-2.0); EOSINOPHILS 0.2 % (0.0-3.0); HEMOGLOBIN 12.6 gm/dL (12.0-15.0); LYMPHOCYTES 4.5 % (24.0-44.0); MCH 30.4 pg (26.0-34.0); MCHC 32.4 g/dL (28.0-37.0); MONOCYTES 4.6 % (1.0-8.0); PLATELET COUNT 88 thou/uL (150-400); POLYS 90.6 % (36.0-66.0); RBC 4.16 mil/uL (4.20-5.00); RDW 14.2 % (10.5-14.5); WBC 7.2 thou/uL (4.0-11.0)
[2020-12-10 06:28] LABS: MCV 93.8 fL (80.0-100.0)
[2020-12-10 06:35] LABS: ALBUMIN 2.6 g/dL (3.4-5.0); CALCIUM 6.7 mg/dL (8.5-10.1); POTASSIUM 3.2 mmol/L (3.5-5.1); TOTAL BILIRUBIN 0.5 mg/dL (0.2-1.0); TOTAL PROTEIN 5.6 g/dL (6.4-8.2)
[2020-12-10 07:27] VITALS: BP 116/68
[2020-12-10 12:31] VITALS: BP 110/61
--- NOTE | 2020-12-10 15:20 | NUR ---
CHANGE TREATMENTS TO PRN, PATIENT VERY CONFUSED AND COMBATIVE AND CANNOT COMPLETE THE TREATMENTS
[2020-12-10 16:00] VITALS: BP 127/53
[2020-12-10 20:01] VITALS: BP 104/55
--- NOTE | 2020-12-10 20:08 | NUR ---
ASSUMED PATIENT CARE AT 0700. ALERT. TOLERATED DIET. PROGRESSING TOWARDS POC GOALS.
--- NOTE | 2020-12-11 | NUR ---
PT RESTLESS IN BED, FIDGETING WITH SHEETS, O2 NC, AND LAM. IVF INTACT. LUNGS WITH WHEEZES. PT OFFERED FLUIDS, PT HAS TREMORS WHEN HOLDING CUP. PT NOT VERBALIZING WORDS OTHER THAN MAMA. PT DID KISS STAFFS HAND. BED ALARM ON.
[2020-12-11 03:45] VITALS: BP 104/67
[2020-12-11 06:39] LABS: ABSOLUTE NEUTROPHILS 7.3 thou/uL (1.4-8.2); HEMATOCRIT 35.9 % (37.0-47.0); HEMOGLOBIN 11.8 gm/dL (12.0-15.0); LYMPHOCYTES 3.7 % (24.0-44.0); MCH 30.2 pg (26.0-34.0); MCHC 32.8 g/dL (28.0-37.0); MCV 92.1 fL (80.0-100.0); MONOCYTES 3.5 % (1.0-8.0); POLYS 92.8 % (36.0-66.0); RDW 13.9 % (10.5-14.5); WBC 7.9 thou/uL (4.0-11.0)
[2020-12-11 07:01] LABS: ALBUMIN 2.5 g/dL (3.4-5.0); CALCIUM 6.8 mg/dL (8.5-10.1); CREATININE 0.8 mg/dL (0.6-1.0); DIRECT BILIRUBIN 0.1 mg/dL (<0.1-0.2); PHOSPHORUS 2.2 mg/dL (2.6-4.7); POTASSIUM 3.4 mmol/L (3.5-5.1); TOTAL BILIRUBIN 0.4 mg/dL (0.2-1.0); TOTAL PROTEIN 5.4 g/dL (6.4-8.2)
[2020-12-11 08:05] VITALS: BP 122/60
[2020-12-11 11:35] VITALS: BP 123/68
--- NOTE | 2020-12-11 13:13 | NUR ---
Case opened to follow for dc planning. Pt admitted from [facility]. Spoke with manager clinical informatics Sergey Celis who indicates that the pt is normally able to gait indep with supervision and a gait belt, supervision for adl's, assist with setup for eating, meds and bathing. Able to follow commands. She is non verbal and is on a mod diet with thickened liquids. The pt's sister Kindra is her legal guardian. Message left for Kindra regarding possible need for SNF at dc. PT/OT eval pending due to mental status/lethargy. Sergey to check with their mngt regarding SNF preferences. Kindra to let cm know if she wishes a listing of SNF's. Pt was first positive for covid at the gp home on 11-09-20 and is now out of her ISO. Kindra and Sergey provided with unit number for updates as well as unit cm for f/u regarding possible snf needs at dc vs directly returning to the gp home with hh.
[2020-12-11 14:39] LABS: PLATELET COUNT 90 thou/uL (150-400)
[2020-12-11 15:51] VITALS: BP 119/63
--- NOTE | 2020-12-11 16:23 | NUR ---
PT AWAKE AND ALERT BUT NONE VERBAL. VSS, IVF INFUSING PER ORDER, SR ON TELE, LAM TO DD. PT DOES NOT APPEAR TO BE IN ANY PAIN. PT TOLERATES MEDS AND MEALS. UPDATE GIVEN TO DON AT PT SNF. WILL CONTINUE TO MONITOR.
[2020-12-11 20:29] VITALS: BP 112/62
[2020-12-12 03:28] VITALS: BP 101/46
--- NOTE | 2020-12-12 04:05 | NUR ---
Pt. slept fair during the night. Repositioned prn for comfort. Maintaining O2 sat in the mid 90's on 1L/NC. Cont. on enhanced precaution , afebrile. Seizure precautions maintained , no seizure activity. Pt. pulled out IV at HS. New IV placed on right FA. She follows simple commands otherwise says mama. Bed alarm on for safety. SCD's in place. Making progress towards care plan goals.
[2020-12-12 06:15] LABS: ALBUMIN 2.4 g/dL (3.4-5.0); ANION GAP 5 mmol/L (7-16); BUN 16 mg/dL (7-18); CALCIUM 7.4 mg/dL (8.5-10.1); CHLORIDE 113 mmol/L (98-107); CO2 24 mmol/L (21-32); CREATININE 0.6 mg/dL (0.6-1.0); DIRECT BILIRUBIN < 0.1 mg/dL (<0.1-0.2); GLUCOSE 209 mg/dL (74-106); PHOSPHORUS 1.7 mg/dL (2.6-4.7); SGOT 31 U/L (15-37); SGPT 41 U/L (14-59); SODIUM 142 mmol/L (136-145); TOTAL BILIRUBIN 0.3 mg/dL (0.2-1.0); TOTAL PROTEIN 5.3 g/dL (6.4-8.2)
[2020-12-12 07:34] VITALS: BP 125/61
--- NOTE | 2020-12-12 14:31 | NUR ---
CARE ASSSUMED AT 0700, PT ALERT TO SELF, NONVERBAL.ABLE TO FOLLOW SOME COMMANDS. PT IS NOW ON ROOM AIR. AATE MOST OF HER BREAKFAST AND LUNCH. LAM IN PLACE, PATENT AND SECURED. FALL PRECAUTIONS IN PLACE. WILL CONTINUE TO MONITOR
[2020-12-12 15:31] VITALS: BP 137/69
--- NOTE | 2020-12-12 16:27 | NUR ---
CORAZON reviewed chart and spoke with nursing and attending physician. Palliative care physician consulted to discuss goals of care. CORAZON spoke with Carlos, power house control room operator ([phone]) to provide update. Pt is currently on service for . [facility] is able to accept pt back when medically stable. Pt was not on O2 prior to admission. Per Carlos, pt appears to be back to baseline. CORAZON is following to assist as needed with discharge planning.
[2020-12-12 20:30] VITALS: BP 99/51
[2020-12-13 05:00] VITALS: BP 111/84
[2020-12-13 05:31] LABS: ALBUMIN 2.3 g/dL (3.4-5.0); CALCIUM 7.4 mg/dL (8.5-10.1); CREATININE 0.7 mg/dL (0.6-1.0); DIRECT BILIRUBIN 0.1 mg/dL (<0.1-0.2); PHOSPHORUS 2.2 mg/dL (2.5-4.9); POTASSIUM 3.6 mmol/L (3.5-5.1); TOTAL BILIRUBIN 0.4 mg/dL (0.2-1.0); TOTAL PROTEIN 4.8 g/dL (6.4-8.2)
--- NOTE | 2020-12-13 07:39 | NUR ---
PT CAME FROM 3W AROUND MIDNIGHT TODAY. PT ONLY SAYS "MAMA" AND WILL KISS RN'S HAND OCASSIONALLY. PT SNAPPED PFF TWO IV'S. RN CHANGED J LOOP TX THIS SHIFT. WHEN RN ATTEMPTED TO START A NEW IV AND REPLACE SNAPPED OFF JLOOP, PT RETRACTED HER HAND AND REFUSED TO LET RN PERFORM CARE. SO D5 FLUID IS CURRENLTY PAUSED. HOWEVER PT IS STABLE ,WILL CONTINUE TO MONITOR.
--- NOTE | 2020-12-13 08:14 | NUR ---
breathing treatments need to be discontinued, patient too confused and combative, she hits and scratches in order to stop the treatment and becomes very agitated, rn toni was informed of inability to do therapy and will attempt to contact doctor in order to discontinue therapies.
[2020-12-13 08:29] VITALS: BP 120/50
--- NOTE | 2020-12-13 15:27 | NUR ---
THE DIRECTOR OF HER FACILIY CALLED TO CHECK ON ON PT. BRIEF UPDATE GIVEN. PT IS UP OUT OF BED ALL OF THIS AFTERNOON IN A CHAIR AND AMBULATED TO THE BED WELL AND STAEDY ON HER FEET. SHE DOES NOT LIKE THE LAM AND TRIED TO TUG ON IT COVERED HER HANDS UP IN WARM BLANKET.
[2020-12-13 16:27] VITALS: BP 137/66
--- NOTE | 2020-12-13 16:47 | NUR ---
CORAZON reviewed chart and spoke with attending physician. Enhanced Isolation precautions have been discontinued. Pt transferred to CCU from 3W during night coordinator. CORAZON received voice message from pt's sister, Cait, requesting an update and to request pt be out of bed as much as possible. Pt has been out of bed this afternoon. CORAOZN spoke with Cait via phone to provide update. Cait states she has spoken with pt's nurse and house mgr, Sergey. Plan is for pt to return to her senior living. Palliative care/bee rancher consulted. CORAZON is following to assist as needed with discharge planning.
--- NOTE | 2020-12-13 19:14 | NUR ---
PLEASE pass ALONG: THIS PATIENT IS CLEARED BY DR CANO TODAY NOT COVID INFECTIOUS BASED ON HER TITERS THEY BELIEVE HER + RESULTS ON 12/08 IS A WAVE FROM HER PRIOR COVID ROUND IN OCTOBER. NO INFECTIOUS, ISOLATION CART NEEDED PER DR. CANO-STANDARD PRECATIONS ONLY. RECIEVED ORDER TODAY TO CANCEL HER IV FLUIDS NOW THAT SHE IS EATING ALL HER MEALS FULLY.
--- NOTE | 2020-12-13 19:18 | NUR ---
FAMILY IS REQUESTING A DISCHARGE ORDER FOR PT, OT AT HER SNF OR SHE WILL NOT GET IT APPARENTLY. SHE HAD A GOOD DAY UP ALL DAY IN CHAIR NO BREATHING ISSUES AND SOFIA APPETITE.
[2020-12-13 20:46] VITALS: BP 107/79
[2020-12-14 04:45] VITALS: BP 103/65
[2020-12-14 05:20] LABS: ALBUMIN 2.3 g/dL (3.4-5.0); CALCIUM 7.2 mg/dL (8.5-10.1); CREATININE 0.8 mg/dL (0.6-1.0); DIRECT BILIRUBIN 0.2 mg/dL (<0.1-0.2); PHOSPHORUS 1.6 mg/dL (2.5-4.9); POTASSIUM 3.6 mmol/L (3.5-5.1); TOTAL BILIRUBIN 0.5 mg/dL (0.2-1.0); TOTAL PROTEIN 4.6 g/dL (6.4-8.2)
--- NOTE | 2020-12-14 05:40 | NUR ---
ASSUMED PT CARE AT AROUND 1900, UNABLE TO FOLLOW COMMANDS, ASESSMENTS CHARTED, TOOK SCHEDULED MEDS WITHOUT DIFFICULTY, SR ON THE MONITOR, NO PAIN OR ACUTE DISTRESS NOTED, REMAINS ON 2L, O2SATS STABLE, SLEPT THROUGH THE NIGHT, WILL CONTINUE TO MONITOR; PROGRESSING TOWARDS POC
[2020-12-14 07:30] VITALS: BP 12/62
--- NOTE | 2020-12-14 15:19 | NUR ---
Case discussed with the care team. Pt's sodium elev again when D5NS dc'd. Dr Moseley has been consulted for goals of care and discussion of nutritional support or palliative approach. Cm has spoke with Sergey the house mngr, his supervisior Vesta and Rita the DON for the custodial. They have been updated and a copy of the pt's guardianship document requested. They note that pt's sister Kindra is having some health issues and sister Cait is the alternate/co guardian. Cooper Apprentice spoke with Cait and confirmed her number [phone]. The attending has spoken with her. Dr Moseley consult canceled at this time. Goal is return to the grp home and they will try to monitor her po intake closely to prevent recurrent hypernatremia. Full Code status. Repeat labs in the am. Dc pending lab results. Sergey, the linen room houseperson will need to be contacted first thing tomorrow if dc is indicated at [phone] as they have limited pharmacy delievery. No new medications anticipated. Will need PT/OT orders for HH. Pt is on room air. The custodial has limited ability for a weekend admission especially if there are sign changes in her care or new meds. Care team updated. Rita dietz DON updated. Cm to f/u with Sergey in the am. push po intake
[2020-12-14 15:33] VITALS: BP 12/62
[2020-12-14 15:45] VITALS: BP 127/62
[2020-12-14 19:26] VITALS: BP 141/60
[2020-12-15 03:30] VITALS: BP 111/50
--- NOTE | 2020-12-15 04:24 | NUR ---
ASSESSMENT DOCUMENTED.PT BEEN RESTING IN BED IN NO ACUTE.NO CONCERNS NOTED WITH THE PATIENT.POC IS TO TRANSFER PATIENTS BACK TO THE INTERMEDIATE.FAMILY CALLED AND UPDATED WITH THE PATIENT STATUS AND POC.NO CONCERNS VOICED.
[2020-12-15 08:25] VITALS: BP 120/62
[2020-12-15 08:32] VITALS: BP 129/50
[2020-12-15] MEDS ORDERED: ZINC SULFATE 2220 MG PO (10:09)
--- NOTE | 2020-12-15 11:10 | NUR ---
FAXED DISCHARGE ORDERS/SUMMARY TO RIKY/MANAGER FLEET AT [facility]. LEFT MESSAGE ON HIS CELL PHONE THAT PATIENT WAS RETURNING TODAY BY [facility] AT 1:OO PM. SPOKE TO KENROY AT THE [facility] TO CONFIRM PATIENT'S RETURN ARRIVAL. [facility] [phone]; FAX [phone]; RIKY [phone] [facility] TO [place]. SHE WILL CALL TO CONFIRM IF SHE CAN ACCEPT PATIENT. DCP TO VERIFY INFO WITH RIKY AFTER CONFIRMATION. [facility] [phone]; FAX [phone] UNIT NURSE-RAUL BOUDREAUX INFORMED OF TIME OF DISCHARGE; CHART COPY COMPLETED. CONFIRMED WITH GODFREY/SISTER OF DISCHARGE PLANS/TIME TODAY AND HOME HEALTH TO FOLLOW. SHE WAS APPRECIATIVE OF THE CARE AND COMMUNICATION OF PATIENT'S CARE.
[2020-12-15 11:41] VITALS: BP 12/62
[2020-12-15 11:42] VITALS: BP 12/62
--- NOTE | 2020-12-15 11:55 | NUR ---
Labs with in normal range this am. DC back to her shelter with hh orders in progress. [place] van ride [facility] at 1pm vouchered to facilitate dc. Sergey,the warehouse delivery driver is aware and indicates they can accept back today. They prefer HH be arranged per [place] as they have had her recently. Cait updated and agreeable to the dc. CARLOS Salinas for CDD aware of the dc plan. [facility] called and the dc tool planner will fax them her dc meds as well. FAx number for the gp home is [phone], [facility] fax [phone]. Chart copy to be sent with the pt. No dme needed. All parties updated.
--- NOTE | 2020-12-15 14:10 | NUR ---
PT CARE ASSUMED AT 0700. ASSESSMENTS CHARTED. MEDICATIONS CHARTED. RFA IV. SINUS RHYTHM. LAM. PUREED DIET, FEEDER. PT TO BE DISCHARGED TO LONG-TERM. IV D/C'D. TELEMETRY D/C'D. LAM D/C'D. LEFT VIA WHEELCHAIR VAN.
--- NOTE | 2020-12-16 13:54 | HC ---
[facility] [place] [address] CONSULTATION Name: GILMAR ELDER Room #: 219-P [facility] IN M.R.#: [id number] Admission: 12/08/20 Attend Phys: Jay Bennett MD Discharge: 12/15/20 Date of : 52 Report #: [id number] THIS REPORT FOR: cc: LUIS - Family physician unknown MANE MORENO MD,Vee Bruno MD ~ DATE OF SERVICE: 12/10/2020 REASON FOR CONSULTATION: Hypernatremia. REASON FOR PRESENTATION: Altered mental status. HISTORY OF PRESENT ILLNESS: Unable to assist in any of those parts of her history given her acute altered mental status. The patient was brought to the hospital on 12/08 with altered mental status. She lives in a usp. She has history of anoxic brain injury at with seizure disorder, pulmonary embolism. She is also known to have mental compromise, hypothyroidism, hypertension. She presented to the Emergency Room for further evaluation and management and was found to have significant hypernatremia. No other details are available. PAST MEDICAL HISTORY: Obtained from the medical chart: 1. Acute anoxic brain injury at . 2. Hypertension. 3. Hyperlipidemia. 4. Hypothyroidism. 5. Mental retardation. SOCIAL HISTORY: Lives in a usp. No other details are available. FAMILY HISTORY: Unobtainable given the patient's current mental status. ALLERGIES: None listed. REVIEW OF SYSTEMS: Unobtainable given the patient's current mental status. MEDICATIONS: Listed amongst her custodial facility medications: 1. Albuterol. 2. Eliquis. 3. Keppra. 4. Trazodone. 5. Simvastatin. PHYSICAL EXAMINATION: GENERAL: She is confused, lethargic. [facility] [address] [place] [address] CONSULTATION Name: JAELGILMAR M Room #: 219-P [facility] IN .R.#: [id number] Admission: 12/08/20 Attend Phys: Jay Bennett MD Discharge: 12/15/20 Date of : 52 Report #: [id number] VITAL SIGNS: Blood pressure is 116/68, pulse rate is 88, temperature is 37. HEAD AND NECK: No jugular venous distention. Dry mucous membrane. CHEST: No crackles. CARDIOVASCULAR: Regular with no rub detected. ABDOMEN: Soft, nontender with no hepatosplenomegaly. LOWER EXTREMITIES: No edema. LABORATORY VALUES: Sodium 142, potassium 3.2, BUN 34, creatinine is 1.0. Phosphorus is 2.0. COVID-19 is positive. ASSESSMENT: 1. Hypernatremia, resolved. 2. Hypokalemia and hypophosphatemia. Replace electrolytes. 3. COVID-19 infection as per the ID. This is a simple hypernatremia due to free water deficit and this has rectified with the free water replacement. Continue with the same until the patient is able to take p.o. No further renal recommendation. <ELECTRONICALLY SIGNED> By: Vee Mac MD 12/16/20 1354 [id number] 0905 Vee Mac MD /nt
== END 2020-12-15 14:02 | disposition home health service (06) | DRG 177 ==
LOC: ER 21:35 → 3W 23:27 → 2N 23:27 → EROBS 23:27 → 3W 12-09 00:30 → 2N 12-12 23:52
PROVIDERS: Emergency Medicine; Hospitalist; Nurse Practitioner Family; Specialist; ADMIT Internal Medicine; ATTEND Internal Medicine
PROC: XW033E5 Introduction of Remdesivir Anti-infective into Peripheral Vein, Percutaneous Approach, New Technology Group 5 (ICD-10-PCS; principal; 2020-12-10)
DX: U07.1 COVID-19 (principal); G92 Toxic encephalopathy; E87.0 Hyperosmolality and hypernatremia; N17.9 Acute kidney failure, unspecified; Z86.711 Personal history of pulmonary embolism; J45.909 Unspecified asthma, uncomplicated; E86.0 Dehydration; E78.5 Hyperlipidemia, unspecified; E03.9 Hypothyroidism, unspecified; E87.6 Hypokalemia; E83.39 Other disorders of phosphorus metabolism; J44.9 Chronic obstructive pulmonary disease, unspecified; G40.909 Epilepsy, unspecified, not intractable, without status epilepticus; R13.10 Dysphagia, unspecified; E11.65 Type 2 diabetes mellitus with hyperglycemia; Z79.899 Other long term (current) drug therapy
CPT/HCPCS: 10081; 10879

== ENCOUNTER 2021-02-11 01:04 | Emergency (ER) | payer OTHER ==
[~2021-02-11] VITALS: Ht 152.4 cm; Wt 68.0 kg
[~2021-02-11 01:04] MED LIST changes: +ACETAMINOPHEN500 MG PO; +ALBUTEROL2.5 MG/0.5 INH; +BUMETANIDE 1 MG1 M1 PO; +PROAIR HFA8.5 GM INH; +ZINC SULFATE 2220 MG PO
[2021-02-11] MEDS ORDERED: OLOPATADINE HC2.5 ML OPHTHALMIC (01:30)
[2021-02-11] MEDS ORDERED: BROVANA15 MCG/2 M INH (01:31)
[2021-02-11 01:40] LABS: ABSOLUTE NEUTROPHILS 3.5 thou/uL (1.4-8.2); BASOPHILS 0.5 % (0.0-2.0); EOSINOPHILS 4.9 % (0.0-3.0); HEMATOCRIT 35.3 % (37.0-47.0); HEMOGLOBIN 11.6 gm/dL (12.0-15.0); LYMPHOCYTES 20.9 % (24.0-44.0); MCH 30.9 pg (26.0-34.0); MCHC 32.8 g/dL (28.0-37.0); MONOCYTES 8.3 % (1.0-8.0); PLATELET COUNT 128 thou/uL (150-400); POLYS 65.4 % (36.0-66.0); RBC 3.76 mil/uL (4.20-5.00); RDW 15.3 % (10.5-14.5); WBC 5.3 thou/uL (4.0-11.0)
[2021-02-11 01:43] LABS: CALCIUM 8.3 mg/dL (8.5-10.1); CREATININE 0.7 mg/dL (0.6-1.0); POTASSIUM 3.7 mmol/L (3.5-5.1)
[2021-02-11 01:50] LABS: ALBUMIN 3.3 g/dL (3.4-5.0); DIRECT BILIRUBIN 0.1 mg/dL (<0.1-0.2); TOTAL BILIRUBIN 0.4 mg/dL (0.2-1.0); TOTAL PROTEIN 6.5 g/dL (6.4-8.2)
[2021-02-11] MEDS ORDERED: DOXYCYCLINE 10100 MG PO (03:16)
[2021-02-11 03:48] VITALS: BP 111/60
== END 2021-02-11 05:41 | disposition home or self-care (01) ==
LOC: ER 01:04
PROVIDERS: Emergency Medicine
DX: J06.9 Acute upper respiratory infection, unspecified (principal); J45.909 Unspecified asthma, uncomplicated; Z79.899 Other long term (current) drug therapy

== ENCOUNTER 2021-02-17 14:43 | Inpatient (IN) | payer OTHER ==
[~2021-02-17] VITALS: Ht 160 cm; Wt 66.2 kg
[~2021-02-17 14:43] MED LIST changes: +OLOPATADINE HC2.5 ML OPHTHALMIC
[2021-02-17 14:44] VITALS: BP 71/32
[2021-02-17 15:08] LABS: BASOPHILS 0.9 % (0.0-2.0); EOSINOPHILS 5.3 % (0.0-3.0); HEMATOCRIT 32.5 % (37.0-47.0); HEMOGLOBIN 10.7 gm/dL (12.0-15.0); LYMPHOCYTES 18.1 % (24.0-44.0); MCH 31.3 pg (26.0-34.0); MCHC 32.8 g/dL (28.0-37.0); MCV 95.2 fL (80.0-100.0); MONOCYTES 9.4 % (1.0-8.0); PLATELET COUNT 109 thou/uL (150-400); POLYS 66.3 % (36.0-66.0); RBC 3.42 mil/uL (4.20-5.00); RDW 14.8 % (10.5-14.5); WBC 4.5 thou/uL (4.0-11.0)
[2021-02-17 15:15] LABS: ANION GAP 4 mmol/L (7-16); BUN 21 mg/dL (7-18); CALCIUM 8.6 mg/dL (8.5-10.1); CHLORIDE 108 mmol/L (98-107); CO2 32 mmol/L (21-32); CREATININE 1.1 mg/dL (0.6-1.0); GLUCOSE 144 mg/dL (74-106); POTASSIUM 3.7 mmol/L (3.5-5.1); SODIUM 144 mmol/L (136-145)
[2021-02-17 15:21] LABS: DIRECT BILIRUBIN < 0.1 mg/dL (<0.1-0.2); LIPASE 77 U/L (73-393); SGOT 17 U/L (15-37); SGPT 14 U/L (30-65); TOTAL BILIRUBIN 0.4 mg/dL (0.2-1.0); TOTAL PROTEIN 5.9 g/dL (6.4-8.2)
[2021-02-17 15:32] LABS: URINE BILIRUBIN NEGATIVE (Negative); URINE BLOOD NEGATIVE (Negative); URINE CLARITY CLEAR; URINE COLOR YELLOW; URINE GLUCOSE-RANDOM* NEGATIVE (Negative); URINE KETONES NEGATIVE (Negative); URINE LEUKOCYTES-REFLEX NEGATIVE (Negative); URINE NITRITE-REFLEX NEGATIVE (Negative); URINE PROTEIN (DIPSTICK) NEGATIVE (Negative); URINE SPECIFIC GRAVITY 1.015 (1.005-1.035); URINE UROBILINOGEN 0.2 E.U./dl (0.2-1.0)
--- NOTE | 2021-02-17 16:31 | NUR ---
REJI MEZA/GUARDIAN APPROVED TO SPEAK WITH Mahin (SISTER) [phone]
[2021-02-17 17:57] LABS: BE(vivo) 0.5 mmol/L (-2 to +3); HCO3 27.4 mmol/L (22.0-26.0); PO2 97.4 mmHg (80.0-100.0); sO2 96.8 % (92.0-98.0)
[2021-02-17 17:59] LABS: pH 7.315 (7.360-7.450)
[2021-02-17 18:37] VITALS: BP 99/49
[2021-02-17 19:05] VITALS: BP 95/52
[2021-02-17 19:55] VITALS: BP 108/47
--- NOTE | 2021-02-17 21:52 | NUR ---
PT IS 70 YEAR OLD ADMITED TO [facility]. PT HAS MENTAL RETARDATION STAYS AT A [facility]. ON 2-3 LITERS NASAL CANULA. LUNGS ARE CLEAR. ABDOMEN IS SOFT AND ROUND. MOVES IN BED SLIGHTLY. CALLING ME MOMMA. GOT IN REPORT SHE WAS NONVERBAL BUT APPEARS VERBAL AND AWAKE IN THE ROOM. FLUIDS WHERE GIVEN IN THE EMERGENCY ROOM. PLACED ON TELE MONITOR. WILL CONTINUE TO MONITOR AND ASSESS PER NURSING AT THIS TIME.
[2021-02-18 00:01] VITALS: BP 113/55
--- NOTE | 2021-02-18 04:15 | NUR ---
PT RESTING AT THIS TIME BLOOD PRESSURE IS STALBE. PT IS VOCAL AT THIS TIME. AND MOVES IN THE BED AND CAN BE FUSSY WITH BEHAVIOR. POSSIBLE RETURN TO BASELINE WHAT SHE IS AT THE SKILLED NURSING. WILL CONTINUE TO MONITOR AND ASSESS PER NURSING. CALL LIGHT WITHIN REACH IF NEEDS ASSISTANCE.
[2021-02-18 05:45] VITALS: BP 130/49
[2021-02-18 07:58] VITALS: BP 109/73
[2021-02-18 11:46] VITALS: BP 126/48
[2021-02-18 14:42] LABS: HEMATOCRIT 31.6 % (37.0-47.0); HEMOGLOBIN 10.9 gm/dL (12.0-15.0); MCHC 34.6 g/dL (28.0-37.0); MCV 92.6 fL (80.0-100.0); RBC 3.41 mil/uL (4.20-5.00); RDW 14.6 % (10.5-14.5); WBC 6.9 thou/uL (4.0-11.0)
[2021-02-18 14:51] LABS: CALCIUM 8.8 mg/dL (8.5-10.1); CREATININE 0.9 mg/dL (0.6-1.0); MAGNESIUM 1.7 mg/dL (1.8-2.4); POTASSIUM 3.5 mmol/L (3.5-5.1)
[2021-02-18 15:24] VITALS: BP 133/62
--- NOTE | 2021-02-18 18:38 | NUR ---
PATIENT HAS RESTED IN BED THROUGH THE DAY. SHE IS CONFUSED UNABLE TO MAKE NEEDS KNOWN. LAM IN PLACE. DISCUSSED CARE WITH FAMILY. WILL CONT WITH PLAN OF CARE.
[2021-02-18 20:15] VITALS: BP 113/54
--- NOTE | 2021-02-19 03:02 | NUR ---
ASSESSMENTS CHARTED, MEDS CHARTED GIVEN. PATIENT IS NPO FOR SPEECH EVALUATION. CONCERN IS THAT PATIENT IS NOT EATING WELL, COUGHS WITH FOOD OR THICKENED LIQUID. PEG TUBE IS SUGGESTED, FAMILY IS UNSURE IF THAT IS THE CORRECT PATH. FAMILY WANTS HEAD OF BED TO STAY ABOVE 45 DEGREES. FALL PRECAUTIONS IN PLACE DURING SHIFT.
[2021-02-19 03:06] LABS: HEMOGLOBIN 10.6 gm/dL (12.0-15.0); MCH 31.3 pg (26.0-34.0); MCHC 33.3 g/dL (28.0-37.0); MCV 94.1 fL (80.0-100.0); RBC 3.4 mil/uL (4.20-5.00); RDW 14.3 % (10.5-14.5); WBC 5.8 thou/uL (4.0-11.0)
[2021-02-19 03:16] LABS: CALCIUM 8.7 mg/dL (8.5-10.1); CREATININE 0.8 mg/dL (0.6-1.0); MAGNESIUM 1.9 mg/dL (1.8-2.4); POTASSIUM 3.4 mmol/L (3.5-5.1)
[2021-02-19 04:15] VITALS: BP 133/71
[2021-02-19 07:21] VITALS: BP 104/67
--- NOTE | 2021-02-19 07:21 | EKG ---
[address] [address] ELECTROCARDIOGRAM REPORT Name: GILMAR ELDER Room #: 203-P ADM IN .R.#: [id number] Admission: 02/17/21 Attend Phys: Jay Bennett MD Discharge: Date of : 52 Report #: [id number] [facility] ED Test Date: 2021-02-17 Test Time: 14:56:17 Pat Name: GILMAR ELDER Department: Room: [facility] Gender: F Cellular Equipment Installer: vanda : 1950 Requested By: Benny Orellana Order Number: [id number] MD: Micah Covarrubias Measurements Intervals [place] Rate: 67 P: 60 TN: 223 QRS: 40 QRSD: 95 T: 64 QT: 442 QTc: 467 Interpretive Statements Sinus rhythm Prolonged TN interval Borderline low voltage, extremity leads Abnormal R-wave progression, early transition Compared to ECG 12/08/2020 21:44:27 First degree AV block now present Sinus tachycardia no longer present Myocardial infarct finding no longer present Electronically Signed On 02-19-2021 7:20:48 CDT by Micah Covarrubias [email or web address] <ELECTRONICALLY SIGNED> By: Micah Covarrubias MD, FAC 02/19/21 0720 1456 1456 Micah Covarrubias MD, [facility] /EPI
[2021-02-19 11:08] VITALS: BP 136/74
--- NOTE | 2021-02-19 12:09 | NUR ---
PT DISCHARGING TODAY TO [facility] WHERE SHE RESIDED PRIOR TO ADM. DC ORDERS/SUMMARY FAXED PER SW. TRANSPORT ARRANGED WITH MODE OF CARE ([facility]) VAN THEY CAN ARRIVE FROM [phone]. NOTIFIED PT'S CAREGIVER BERTRAM AT [facility] HOME TIME 0F TRANSPORT SHE IS REQUESTING A CALL WHEN PT LEAVES HOSPITAL. UNIT NOTIFIED AND PT'S LEGAL GUARDIAN (REJI) NOTIFIED OF DC AND TIME OF TRANSPORT.
[2021-02-19] MEDS ORDERED: SINEMET 25-1001 EAC1 PO (14:00)
[2021-02-19 15:23] VITALS: BP 139/68
--- NOTE | 2021-02-19 17:30 | NUR ---
PT TRANFERED BACK TO HER [facility]. REPORT CALLED. ALL BELONGINGS WITH PT.
--- NOTE | 2021-02-20 08:30 | NUR ---
Note Given: Y Facility List Provided:Y Facility [facility]: None chosen at this time Ame Dumont NP discussed BPCI with this pt 02/19/2021
== END 2021-02-19 17:38 | disposition home or self-care (01) | DRG 314 ==
LOC: ER 14:43 → EROBS 19:17 → 2N 19:17
PROVIDERS: Nurse Practitioner; ADMIT Internal Medicine; ATTEND Internal Medicine
DX: I95.89 Other hypotension (principal); G93.41 Metabolic encephalopathy; J96.02 Acute respiratory failure with hypercapnia; N17.9 Acute kidney failure, unspecified; E87.0 Hyperosmolality and hypernatremia; J44.1 Chronic obstructive pulmonary disease with (acute) exacerbation; Z86.711 Personal history of pulmonary embolism; E86.9 Volume depletion, unspecified; E86.0 Dehydration; R34 Anuria and oliguria; R62.7 Adult failure to thrive; I10 Essential (primary) hypertension; E03.9 Hypothyroidism, unspecified; E78.5 Hyperlipidemia, unspecified; E11.65 Type 2 diabetes mellitus with hyperglycemia; R13.10 Dysphagia, unspecified; G40.909 Epilepsy, unspecified, not intractable, without status epilepticus; Z68.25 Body mass index [BMI] 25.0-25.9, adult; Z79.01 Long term (current) use of anticoagulants; Z79.899 Other long term (current) drug therapy
CPT/HCPCS: 10081

== ENCOUNTER 2021-02-21 15:24 | Emergency (ER) | payer OTHER ==
[~2021-02-21] VITALS: Ht 165.1 cm; Wt 62.1 kg
[~2021-02-21 15:24] MED LIST changes: +SINEMET 25-1001 EAC1 PO
[2021-02-21 15:46] LABS: BASOPHILS 0.3 % (0.0-2.0); EOSINOPHILS 3.8 % (0.0-3.0); HEMATOCRIT 36.7 % (37.0-47.0); HEMOGLOBIN 12.1 gm/dL (12.0-15.0); LYMPHOCYTES 22.5 % (24.0-44.0); MCHC 32.9 g/dL (28.0-37.0); MCV 94.2 fL (80.0-100.0); PLATELET COUNT 109 thou/uL (150-400); POLYS 63.4 % (36.0-66.0); RDW 14.8 % (10.5-14.5); WBC 4.8 thou/uL (4.0-11.0)
[2021-02-21 15:53] LABS: CALCIUM 8.3 mg/dL (8.5-10.1); CREATININE 0.8 mg/dL (0.6-1.0); POTASSIUM 3.5 mmol/L (3.5-5.1)
[2021-02-21 15:59] LABS: ALBUMIN 3.1 g/dL (3.4-5.0); TOTAL BILIRUBIN 0.5 mg/dL (0.2-1.0); TOTAL PROTEIN 6.2 g/dL (6.4-8.2)
--- NOTE | 2021-02-21 16:36 | EKG ---
[place] [address] [facility] [place] [address] ELECTROCARDIOGRAM REPORT Name: GILMAR ELDER Room #: [facility]#: [id number] Admission: 02/21/21 Attend Phys: Discharge: Date of : 52 Report #: [id number] [facility] ED Test Date: 2021-02-21 Test Time: 15:46:55 Pat Name: GILMAR ELDER Department: Room: Gender: F Health Informatics Instructor: CATY : 1950 Requested By: Alejandro Martin Order Number: [id number] MD: Micah Covarrubias Measurements Intervals [place] Rate: 98 P: 47 GA: 173 QRS: -23 QRSD: 88 T: 66 QT: 362 QTc: 463 Interpretive Statements Sinus rhythm Borderline left axis deviation Compared to ECG 02/17/2021 14:56:17 First degree AV block no longer present Electronically Signed On 02-21-2021 16:35:56 CDT by Micah Covarrubias [email or web address] <ELECTRONICALLY SIGNED> By: Micah Covarrubias MD, [facility] 02/21/21 1635 1546 1546 Micah Covarrubias MD, FACC /EPI
[2021-02-21 17:23] LABS: URINE BILIRUBIN NEGATIVE (Negative); URINE BLOOD NEGATIVE (Negative); URINE CLARITY CLEAR; URINE COLOR YELLOW; URINE GLUCOSE-RANDOM* NEGATIVE (Negative); URINE KETONES NEGATIVE (Negative); URINE LEUKOCYTES-REFLEX TRACE (Negative); URINE NITRITE-REFLEX NEGATIVE (Negative); URINE PROTEIN (DIPSTICK) NEGATIVE (Negative)
[2021-02-21] MEDS ORDERED: SYSTANE 0.3-0.1 EACH EA. EYE (18:03)
[2021-02-21] MEDS ORDERED: ZPAK PO (18:05)
[2021-02-21 18:19] VITALS: BP 115/64
== END 2021-02-21 19:06 | disposition home or self-care (01) ==
LOC: ER 15:24
PROVIDERS: Emergency Medicine
DX: R26.9 Unspecified abnormalities of gait and mobility (principal); H10.9 Unspecified conjunctivitis; J18.9 Pneumonia, unspecified organism; J45.909 Unspecified asthma, uncomplicated; Z79.899 Other long term (current) drug therapy

== ENCOUNTER 2021-04-04 18:52 | Inpatient (IN) | payer OTHER ==
[~2021-04-04] VITALS: Ht 152.4 cm; Wt 64.4 kg
[~2021-04-04 18:52] MED LIST changes: +SYSTANE 0.3-0.1 EACH EA. EYE
[2021-04-04 18:56] VITALS: BP 102/45
[2021-04-04 19:33] LABS: ABSOLUTE NEUTROPHILS 4.9 thou/uL (1.4-8.2); BASOPHILS 0.9 % (0.0-2.0); EOSINOPHILS 9.4 % (0.0-3.0); HEMATOCRIT 34.8 % (37.0-47.0); HEMOGLOBIN 11.6 gm/dL (12.0-15.0); LYMPHOCYTES 16.2 % (24.0-44.0); MCHC 33.4 g/dL (28.0-37.0); MONOCYTES 10.9 % (1.0-8.0); PLATELET COUNT 108 thou/uL (150-400); POLYS 62.6 % (36.0-66.0); RBC 3.74 mil/uL (4.20-5.00); RDW 13.5 % (10.5-14.5); WBC 7.9 thou/uL (4.0-11.0)
[2021-04-04 19:50] LABS: ANION GAP 2 mmol/L (7-16); BUN 21 mg/dL (7-18); CALCIUM 8.8 mg/dL (8.5-10.1); CHLORIDE 106 mmol/L (98-107); CO2 33 mmol/L (21-32); GLUCOSE 153 mg/dL (74-106); POTASSIUM 3.7 mmol/L (3.5-5.1); SODIUM 141 mmol/L (136-145)
[2021-04-04 19:55] LABS: SGOT 18 U/L (15-37); SGPT 22 U/L (14-59); TOTAL BILIRUBIN 0.2 mg/dL (0.2-1.0); TOTAL PROTEIN 6.6 g/dL (6.4-8.2); TROPONIN-I <0.06 ng/mL (<0.06)
[2021-04-04 21:13] VITALS: BP 107/49
[2021-04-04 21:18] LABS: BE(vivo) 3.7 mmol/L (-2 to +3); HCO3 29.6 mmol/L (22.0-26.0); PCO2 50.8 mmHg (35.0-45.0); PO2 92.2 mmHg (80.0-100.0); pH 7.384 (7.360-7.450); sO2 96.9 % (92.0-98.0)
--- NOTE | 2021-04-04 21:33 | NUR ---
DEMETRIS AT [facility] NOTIFIED OF ADMISSION
[2021-04-04 21:55] VITALS: BP 119/48
[2021-04-04 22:18] VITALS: BP 120/50
--- NOTE | 2021-04-05 01:33 | NUR ---
ASSUMED CARE OF PT AT 2205HRS FROM ED. PT IS ALERT BUT IS NON-VERBAL. FALL PRECAUTION IN PLACE. NEEDS MUST BE ASSUMED. PT CALLS FOR ASSISTENCE AND WAS CONTINENT THIS SHIFT. PT PLACED NPO PENDING SPEECH EVAL. 2L O2 VIA NC CONTINUED. NO SKIN ISSUES NOTED. PT WAS ABLE TO GET COMFORTABLE AND SLEEP PART OF THE SHIFT. WILL CONTINUE TO MONITOR.
[2021-04-05 03:53] VITALS: BP 126/52
[2021-04-05 05:05] LABS: ABSOLUTE NEUTROPHILS 4.1 thou/uL (1.4-8.2); BASOPHILS 0.3 % (0.0-2.0); EOSINOPHILS 0.2 % (0.0-3.0); HEMATOCRIT 33.7 % (37.0-47.0); HEMOGLOBIN 11.3 gm/dL (12.0-15.0); LYMPHOCYTES 6.6 % (24.0-44.0); MCH 31.3 pg (26.0-34.0); MCHC 33.7 g/dL (28.0-37.0); MCV 92.8 fL (80.0-100.0); MONOCYTES 1.4 % (1.0-8.0); PLATELET COUNT 114 thou/uL (150-400); POLYS 91.5 % (36.0-66.0); RBC 3.63 mil/uL (4.20-5.00); RDW 12.7 % (10.5-14.5); WBC 4.4 thou/uL (4.0-11.0)
[2021-04-05 05:18] LABS: CALCIUM 8.6 mg/dL (8.5-10.1); CREATININE 0.8 mg/dL (0.6-1.0); MAGNESIUM 2.4 mg/dL (1.8-2.4); POTASSIUM 3.8 mmol/L (3.5-5.1)
[2021-04-05 07:35] VITALS: BP 130/65
--- NOTE | 2021-04-05 08:13 | EKG ---
[address] [address] ELECTROCARDIOGRAM REPORT Name: JAELGILMAR Man Room #: 202-P ADM IN M.R.#: [id number] Admission: 04/04/21 Attend Phys: Willy Alvarado MD Discharge: Date of : 52 Report #: [id number] [facility] ED Test Date: 2021-04-04 Test Time: 19:43:01 Pat Name: GILMAR ELDER Department: Room: 202 Gender: F Process Server: mpaadeline : 1950 Requested By: Lalita Travis Order Number: [id number] MD: Brennan Lewis Measurements Intervals [place] Rate: 99 P: 47 VA: 189 QRS: -23 QRSD: 85 T: 69 QT: 364 QTc: 468 Interpretive Statements Sinus rhythm Inferior infarct, old Compared to ECG 02/21/2021 15:46:55 Myocardial infarct finding now present Electronically Signed On 04-05-2021 8:12:53 CDT by Brennan Lewis [email or web address] <ELECTRONICALLY SIGNED> By: Brennan Lewis MD 04/05/21811 1943 42 Brennan Lewis MD /ROSALIA
--- NOTE | 2021-04-05 10:56 | NUR ---
ASSESSMENT: CM REVIEWED CHART AND SPOKE WITH ATTENDING. PT WAS ADMITTED DUE TO SOB AND LIVES AT A [facility] AND IS NONVERBAL AT BASELINE. PT IS ABLE TO FOLLOW COMMANDS. CM REACHED OUT TO PATIENTS GUARDIAN/SISTER REJI BUT UNABLE TO REACH AND LEFT MESSAGE. CM REACHED OUT TO [facility] AND SPOKE WITH CHRISTIANO [phone]. HE STATES PT IS NORMALLY INDEPENDENT WITH AMBULATION BUT THEY HAVE HER WEAR A GAIT BELT AND WALK WITH SUPERVISION DUE TO HER BEING A FALL RISK. PT NEEDS ASSISTANCE WITH ADLS AND FEEDING. PT IS ON PUREED DIET AT [facility]AY. PT HAS HX OF COVID BACK IN OCTOBER OF 2020. PT IS CURRENTLY ON 2L. CHRISTIANO STATES SHE WEARS OXYGEN NEEDED AT FACILITY BUT NORMALLY DOES NOT NEED IT. PT HAS HX OF [facility] IN THE PAST BUT NOT CURRENTLTY IN SERVICE WITH THEM. CHRISTIANO REQUEST CLINICAL BE FAXED TO HIM AT [phone]. CM FAXED CLINICAL. ST HAS BEEN CONSULTED TO SEE PATIENT DUE TO DYSPHAGIA. CM WILL CONTINUE TO FOLLOW TO ASSIST NEEDED. LIKELY DISCHARGE BACK TO [facility] IN NEXT DAY OR TWO.
[2021-04-05 11:00] VITALS: BP 122/70
[2021-04-05 15:08] VITALS: BP 119/51
--- NOTE | 2021-04-05 17:23 | NUR ---
PT ASSESSED AT START OF SHIFT. WEANED OFF O2 AND AEROSOL TREATMENTS CHANGED TO Q6HRS PER DR. CHURCHILL. SPEECH ASSESSED SWALLOWING AND DETERMINED PUREED W/ PUDDING THICK LIQUIDS ONLY W/ MEDS CRUSHED. AMBULATED IN THE HALLS W/ ASSIST OF 2 AND DID WELL. NO C/O PAIN. HAS BEEN CONTINENT OF BLADDER-NO BM TODAY. SITTING UP IN RECLINER.
[2021-04-05 19:56] VITALS: BP 125/51
[2021-04-06 03:53] VITALS: BP 140/72
--- NOTE | 2021-04-06 04:08 | NUR ---
ASSUMED CARE OF PT AT SHIFT CHANGE. PT IS ALERT BUT IS NON-VERBAL. FALL PRECAUTON IN PLACE. PT WAS IMPULSIVE AND 1:[address]. PT IS TOLERATING PUDDING THICK DIET. HS MEDS WERE CRUSHED. PT IS ON RA. PT WAS ABLE TO SLEEP PART OF THE SHIFT. VSS AND NO S/S OF ACUTE DISTRESS. WILL CONTINUE TO MONITOR.
[2021-04-06 04:29] LABS: HEMATOCRIT 31.5 % (37.0-47.0); HEMOGLOBIN 10.4 gm/dL (12.0-15.0); RBC 3.36 mil/uL (4.20-5.00); RDW 13.5 % (10.5-14.5)
[2021-04-06 04:34] LABS: CALCIUM 8.5 mg/dL (8.5-10.1); CREATININE 0.7 mg/dL (0.6-1.0); POTASSIUM 3.4 mmol/L (3.5-5.1)
[2021-04-06 07:30] VITALS: BP 149/87
--- NOTE | 2021-04-06 11:39 | NUR ---
PATIENT ALERT IN ROOM, NON-VERBAL. HAS NO BEEN IMPULSIVE THIS MORNING THUS FAR. FALL PRECAUTIONS IN PLACE. IV FLUIDS INFUSING ORDERED FOR LABS INDICATING DEHYDRATION. PATIENT WITH CONGESTED COUGH THAT IS PERSISTENT. SEEN BY SPEECH THERAPY THIS MORNING. PATIENT IS VERY HIGH RISK FOR ASPIRATION. NEED TO ATTEMPT TO INCREASE ORAL INTAKE PATIENT TOLERATES.
--- NOTE | 2021-04-06 11:46 | NUR ---
MARÍA ELENA Triana/EMMETT AT [facility] [phone], WHO STATED THEY DONT ACCEPT RESIDENT BACK OVER THE WEEKEND D/T STAFFING. MARÍA ELENA NOTIFIED DR. GUADARRAMA OF THIS. MARÍA ELENA LFT VM FOR PT'S SISTER/GUARDIAN, GODFREY.
[2021-04-06 12:14] VITALS: BP 146/64
--- NOTE | 2021-04-06 13:55 | NUR ---
RECEIVED PT FROM DAY NURSE. ASSUMED CARES AT NOON. PT IS ALERT, NON VERBAL, UNABLE TO VOICE CONCERNS. PT NEAR NURSES STATION, FREQUENT ROUNDING. VSS, AFEBRILE, SR-ST ON MONITOR. HIGH FALL RISK, FALL PRECAUTIONS IN PLACE. PT ASSESSED BY ST THIS AM. PER DR MCKEON, PT IS NPO DUE TO ASPIRATION RISKS. WILL CONTINUE TO ASSESS COUGH/SPUTUM.
[2021-04-06 16:14] VITALS: BP 136/73
[2021-04-06 20:15] VITALS: BP 100/49
[2021-04-07 04:45] VITALS: BP 136/81
--- NOTE | 2021-04-07 05:54 | NUR ---
ASSUMED CARE OF PT AT SHIFT CHANGE. PT IS ALERT BUT IS NON-VERBAL. FALL PRECAUTION IN PLACE. PT IS STRICT NPO. IVF CONTINUED. PT APPEARS TO BE COMFORTABLE. PT WAS ABLE TO GET COMFORTABLE AND SLEEP PART OF THE SHIFT. WILL CONTINUE TO MONITOR.
[2021-04-07 07:25] VITALS: BP 142/52
[2021-04-07 09:56] LABS: CALCIUM 8.7 mg/dL (8.5-10.1); CREATININE 0.8 mg/dL (0.6-1.0); POTASSIUM 3.1 mmol/L (3.5-5.1)
--- NOTE | 2021-04-07 10:54 | NUR ---
Dr. Fuetnes asked the staff to hold the PO medication for now.
--- NOTE | 2021-04-07 13:03 | NUR ---
sister Cait ([phone]) voiced that she needs to know the reason why the patient needs a feeding tube,saying that she has some idea to share with Dr. Fleming. texted to Dr. Fuentes.
[2021-04-07 15:18] VITALS: BP 122/49
--- NOTE | 2021-04-07 15:44 | NUR ---
Dr. Fuentes stated at 1540 that the patient would be NPO except Cardidopa/levodopa with nectar thick water if patient could tolerate it, or else, patient would be on strick NPO.
[2021-04-07 20:15] VITALS: BP 129/49
--- NOTE | 2021-04-08 03:04 | NUR ---
ASSESSMENTS CHARTED, MEDS CHARTED GIVEN. PATIENT RESTING IN BED DURING SHIFT. UNABLE TO SLEEP DURING THE NIGHT. ON MAINTENANCE FLUIDS DURING SHIFT. UP TO BSC WITH ASSIST. PATIENT IS NONVERBAL. DOES NOT APPEAR TO BE IN ANY PAIN. PATIENT IS NPO EXCEPT FOR CARBIDOPA. FALL PRECAUTIONS IN PLACE DURING SHIFT. PLAN OF CARE IS POSSIBLE PEG TUBE PLACEMENT ON FRIDAY DUE TO ASPIRATION.
[2021-04-08 04:45] VITALS: BP 127/71
[2021-04-08 07:25] VITALS: BP 146/62
[2021-04-08 15:40] VITALS: BP 109/52
--- NOTE | 2021-04-08 16:04 | NUR ---
ASSUMED CARE SHIFT CHANGE. ASSESSMENT CHARTED.MEDS GIVEN. VSS. NO APPARENT S/SX PAIN. ORALS HELD EXCEPT FOR SINEMET, MED GIVEN MIXED WITH HONEY THICK JUICE SLOWLY, NO COUGHING POST SWALLOW. NPO FOR POSSIBLE PEG TUBE PLACEMENT IN AM. PT UP SBA BRANDAN WELL. IMPULSIVE AT TIMES. EASILY REDIRECTABLE. PT DOES NOT VOICE ANY MEANINGFUL WORDS. EYE CONTACT AND SIMPLIFIED SPEECH USED REGULARLY. FALL PREC IN PLACE THROUGHOUT SHIFT. CONTINUING POC. WILL PASS ON REPORT TO NOC RN.
[2021-04-08 20:45] VITALS: BP 104/48
--- NOTE | 2021-04-09 00:23 | NUR ---
2315 PATIENT AGITATED AND GETTING OUT OF BED X7 SINCE 1899. VOIDS PER COMODE. ASSISTED BACK TO BED, BED ALARM ON, MAINTAIN SAFETY. NOTIFIED SAGE CERAMIC DESIGNER AND ORDERS FOR ATIVAN RECIEVED. 2330 [place] GIVEN IV. 0030 RESTING QUIETLY AT THIS TIME. CONTINUE TO ASSES CLOSELY.
[2021-04-09 03:20] VITALS: BP 132/53
--- NOTE | 2021-04-09 04:41 | NUR ---
SLEPT FOR A SHORT TIME. CALLS OUT MAMA FREQUENTLY AND IT IS ONLY WORD SHE SPEAKS. MAINTAIN SAFE ENVIRONMENT, GETS OUT OF BED FREQUENTLY, BED ALARM ON AND PATIENT IN ROOM ACROSS FROM NURSING STATION. WORKING ON GOALS AND PLAN OF CARE FOR NOC. APPEARS COMFORTABLE AND IN NO DISTRESS. CONTINUE TO ASSES CLOSELY.
[2021-04-09 08:09] VITALS: BP 133/37
[2021-04-09 09:08] LABS: HEMATOCRIT 38.2 % (37.0-47.0); MCHC 33.9 g/dL (28.0-37.0); MCV 91.6 fL (80.0-100.0); RBC 4.17 mil/uL (4.20-5.00); RDW 12.9 % (10.5-14.5); WBC 8.9 thou/uL (4.0-11.0)
[2021-04-09 09:17] LABS: CALCIUM 9.1 mg/dL (8.5-10.1); CREATININE 0.8 mg/dL (0.6-1.0); MAGNESIUM 2.2 mg/dL (1.8-2.4)
--- NOTE | 2021-04-09 09:51 | NUR ---
If decision to place PEG, recommend jevity 1.5 to reach goal of 45ml/hr.
--- NOTE | 2021-04-09 10:15 | NUR ---
VAT CONSULTED FOR PICC, DISCUSSED WITH DR CHURCHILL THAT PT HAS HIGH RISK FOR DVT WITH HX OF PE'S. ORDER ON HOLD FOR NOW. PEG TO BE PLACED TOMORROW
[2021-04-09 11:14] VITALS: BP 148/59
[2021-04-09 15:06] VITALS: BP 127/48
--- NOTE | 2021-04-09 19:21 | NUR ---
PT HAD A VIDEO SWALLOW EVALUATION DONE TODAY. PT PASSED THE VIDEO SWALLOW EVAL. PT ON PUREED NECTAR THICK LIQUID DIET. PT TOLERATING AND SWALLOWING HER FOOD FINE. FAMILY BOTH SISTER GODFREY AND REJI WERE UPDATED ON PT CONDITION. NURSING HOME WAS CONTACTED AND UPDATED BY [employer] RET[employer] SALES ASSOCIATE ALEX. PT PROGRESSING TOWARDS GOALS.
[2021-04-09 20:00] VITALS: BP 134/49
[2021-04-10 04:00] VITALS: BP 144/55
--- NOTE | 2021-04-10 04:49 | NUR ---
PT BEEN RESTING IN NO ACUTE DISTRESS.PT IS TOTAL DEPENDENT W/ADLS.USES GESTURES AND INCOMPREHENSIBLE SOUNDS TO COMMUNICATE.UP W/ASSIST TO BSC.NO APPARENT PAIN NOTED.POSSIBLE DISCHARGE TO [facility] TODAY.
[2021-04-10 05:39] LABS: CALCIUM 8.4 mg/dL (8.5-10.1); CREATININE 0.6 mg/dL (0.6-1.0)
[2021-04-10 05:46] LABS: POTASSIUM 4.5 mmol/L (3.5-5.1)
[2021-04-10 07:24] LABS: HEMATOCRIT 35.9 % (37.0-47.0); HEMOGLOBIN 12.2 gm/dL (12.0-15.0); MCH 30.8 pg (26.0-34.0); MCV 90.5 fL (80.0-100.0); RBC 3.97 mil/uL (4.20-5.00); RDW 13.1 % (10.5-14.5); WBC 8.1 thou/uL (4.0-11.0)
[2021-04-10 07:30] VITALS: BP 148/55
--- NOTE | 2021-04-10 10:57 | NUR ---
MESSAGE LEFT ON PT ADVOCATE CHRISTY'S PHONE [phone] TO CALL PT'S SISTER GODFREY TODD AT [phone] REGARDING FAMILY COMPLAINT OF NUTRITION STATUS FOR THE LAST 4 DAYS.
[2021-04-10] MEDS ORDERED: PREDNISONE 10 M10 M1 PO (11:17)
[2021-04-10] MEDS ORDERED: AUGMENTIN400 MG/53 PO (11:17)
--- NOTE | 2021-04-10 12:55 | NUR ---
REPORT CALLED TO CHRISTIANO AT [facility]. D/C INSTRUCTIONS GIVEN INCLUDING PUREED DIET WITH NECKTAR THICK LIQUIDS AND FOR PT TO BE SITTING UPRIGHT OUT OF BED FOR ALL MEALS, ENCOURAGE FLUID INTAKE. D/C PAPERWORK WILL BE SENT HOME WITH PT FOR DRY HOUSE WHEELER. PT'S SISTER GODFREY TODD CALLED AND RN LET HER KNOW THAT PT WILL D/C BACK TO HER [facility] WITH WHEELCHAIR VAN TO ARRIVE HERE BETWEEN 1530/1600.
--- NOTE | 2021-04-10 15:06 | NUR ---
Patient with dc orders to return to [facility] home today. Sp with Gm manager critical care unit at [facility]. Faxed orders and alerted of discharge. Gave him casemgt cell phone to call with any questions. Chart ordered. [facility] van for 1529. RN gave report to Gm. Rn was speaking with sister and alerted of time of transport and discharge. Sister upset patient did not rec nutrition for 4 days only IV fluids. Bo cardiac care unit nurse to f/u with sister. Next Safety van from [facility] for 1529 notified Gm and verified address for transport.
--- NOTE | 2021-04-10 16:48 | NUR ---
RN CALLED CHRISTIANO AT FACILITY AND LET HIM KNOW PHYSICIAN LEFT [facility] AT 1640 WITH [facility].
== END 2021-04-10 16:50 | disposition home or self-care (01) | DRG 177 ==
LOC: ER 18:52 → EROBS 21:05 → 2N 21:05
PROVIDERS: Hospitalist; Internal Medicine; Nurse Practitioner; Physician Assistant; ADMIT Internal Medicine; ATTEND Internal Medicine
DX: J69.0 Pneumonitis due to inhalation of food and vomit (principal); J96.02 Acute respiratory failure with hypercapnia; G93.41 Metabolic encephalopathy; J96.01 Acute respiratory failure with hypoxia; J44.1 Chronic obstructive pulmonary disease with (acute) exacerbation; J45.901 Unspecified asthma with (acute) exacerbation; E87.0 Hyperosmolality and hypernatremia; E11.65 Type 2 diabetes mellitus with hyperglycemia; E78.5 Hyperlipidemia, unspecified; G40.909 Epilepsy, unspecified, not intractable, without status epilepticus; D69.6 Thrombocytopenia, unspecified; B37.9 Candidiasis, unspecified; E87.6 Hypokalemia; D64.9 Anemia, unspecified; M85.80 Other specified disorders of bone density and structure, unspecified site; Z86.16 Personal history of COVID-19; Z79.899 Other long term (current) drug therapy; Z79.01 Long term (current) use of anticoagulants; Z87.820 Personal history of traumatic brain injury; Z86.711 Personal history of pulmonary embolism
CPT/HCPCS: 10081

== ENCOUNTER 2021-05-11 17:11 | Inpatient (IN) | payer OTHER ==
[~2021-05-11] VITALS: Ht 160 cm; Wt 65.3 kg
[~2021-05-11 17:11] MED LIST changes: +AUGMENTIN400 MG/53 PO; +PREDNISONE 10 M10 M1 PO
[2021-05-11 17:13] VITALS: BP 114/50
[2021-05-11 17:43] LABS: ABSOLUTE NEUTROPHILS 2.9 thou/uL (1.4-8.2); BASOPHILS 0.3 % (0.0-2.0); HEMATOCRIT 35.1 % (37.0-47.0); HEMOGLOBIN 11.5 gm/dL (12.0-15.0); LYMPHOCYTES 17.5 % (24.0-44.0); MCH 30.2 pg (26.0-34.0); MCHC 32.8 g/dL (28.0-37.0); MONOCYTES 11.5 % (1.0-8.0); PLATELET COUNT 124 thou/uL (150-400); POLYS 64.7 % (36.0-66.0); RBC 3.82 mil/uL (4.20-5.00); WBC 4.6 thou/uL (4.0-11.0)
[2021-05-11 17:48] LABS: ANION GAP 5 mmol/L (7-16); BUN 15 mg/dL (7-18); CALCIUM 8.5 mg/dL (8.5-10.1); CHLORIDE 110 mmol/L (98-107); CO2 31 mmol/L (21-32); CREATININE 0.8 mg/dL (0.6-1.0); GLUCOSE 172 mg/dL (74-106); SODIUM 146 mmol/L (136-145)
[2021-05-11 17:58] LABS: ALBUMIN 2.9 g/dL (3.4-5.0); DIRECT BILIRUBIN < 0.1 mg/dL (<0.1-0.2); SGOT 20 U/L (15-37); SGPT 21 U/L (14-59); TOTAL BILIRUBIN 0.2 mg/dL (0.2-1.0); TOTAL PROTEIN 6.5 g/dL (6.4-8.2); TROPONIN-I <0.06 ng/mL (<0.06)
[2021-05-11 18:25] LABS: URINE BILIRUBIN NEGATIVE (Negative); URINE BLOOD NEGATIVE (Negative); URINE CLARITY CLEAR; URINE COLOR YELLOW; URINE GLUCOSE-RANDOM* NEGATIVE (Negative); URINE KETONES NEGATIVE (Negative); URINE LEUKOCYTES-REFLEX NEGATIVE (Negative); URINE NITRITE-REFLEX NEGATIVE (Negative); URINE PROTEIN (DIPSTICK) NEGATIVE (Negative); URINE SPECIFIC GRAVITY >= 1.030 (1.005-1.035)
[2021-05-11] MEDS ORDERED: BROVANA15 MCG/2 M INH (20:24)
[2021-05-11] MEDS ORDERED: LEVOCETIRIZINE D5 MG PO (20:25)
[2021-05-11 20:29] VITALS: BP 129/50
[2021-05-11 21:15] VITALS: BP 126/68
[2021-05-11 21:45] VITALS: BP 135/66
[2021-05-11 23:53] VITALS: BP 137/66
[2021-05-12 04:45] VITALS: BP 121/70
--- NOTE | 2021-05-12 06:03 | NUR ---
PATIENT ARRIVED FROM ED AROUND 2129, PATIENT SETTLED INTO ROOM, ASSESSMENT DONE AND ADMISSION WAS DONE. PATIENT IS NON-VERBAL EXCEPT FOR "MAMA". PATIENT HITS MATTRESS REPEATILY WHEN NEEDING TO USE BSC. PATIENT CONTINENT OF BOWEL AND BLADDER. MAINTENANCE FLUIDS STARTED ANTIBIOTICS GIVEN CHARTED. PATIENT UP TO BSC WITH ASSIST X 1. DOES NOT APPEAR TO BE IN PAIN. COUGHING FREQUENTLY. FALL PRECAUTIONS IN PLACE DURING SHIFT.
[2021-05-12 07:46] VITALS: BP 128/64
[2021-05-12 11:17] VITALS: BP 127/64
[2021-05-12 15:15] VITALS: BP 146/81
--- NOTE | 2021-05-12 16:51 | NUR ---
ASSESSMENT CHARTED - PT WITH MOIST NON PRODUCTIVE COUGH. IN THIS AM AND HEARD PATIENT COUGHING AND MADE PT NPO. PT WITH PPN NOW RUNNING FOR NUTRITION PURPOSES. MEDS PER JAN - PT DOES NOT APPEAR TO BE IN ANY PAIN - PT CALLS "MAMA" WHEN SHE NEEDS ATTENTION. UP TO THE BSC. ACCUCHECKS CHARTED - WILL CONTINUE TO MONITOR BLOOD GLUCOSE NOW THAT PT ON PPN AND WILL NOTIFY DOCTOR IF SSI IS NEEDED. P[[T HAS SLEPT FOR MOST OF THE SHIFT TODAY. EASILY AWAKENS WHEN NEEDED. APPEARS COMFORTABLE AT THE PRESENT TIME.
[2021-05-12 19:31] VITALS: BP 147/63
--- NOTE | 2021-05-13 01:37 | NUR ---
ASSESSMENTS CHARTED, MEDS CHARTED GIVEN. PATIENT RESTING IN BED DURING SHIFT. RECEIVING PPN AND ANTIOBIOTICS DURING SHIFT. UP TO BSC WITH ASSIST. FALL PRECAUTIONS IN PLACE DURING SHIFT.
[2021-05-13 03:49] VITALS: BP 157/86
[2021-05-13 09:32] LABS: CALCIUM 8.6 mg/dL (8.5-10.1); CREATININE 0.7 mg/dL (0.6-1.0); POTASSIUM 3.3 mmol/L (3.5-5.1)
[2021-05-13 09:38] VITALS: BP 151/72
[2021-05-13 15:41] VITALS: BP 138/76
--- NOTE | 2021-05-13 15:49 | NUR ---
ASSESSMENT CHARTED - MEDS PER MAR - PT REMIANS NPO WITH PPN FOR NUTRITION. MOUTH CARE PROVIDED. PT UP TO THE BSC WITH ASSIST, CAN BE INCONTINENTAT TIMES. DOES NOT APPEAR TO BE IN PAIN. SISTER INTO VISIT TODAY. ACCUCHECKS CHARTED - PT CONTINUE WITH MOIST BARKING COUGH AT TIMES. APPEARS TO BE RESTING COMFORTABLE AT THE PRESENT TIME.
[2021-05-13 19:14] VITALS: BP 113/53
[2021-05-13 21:45] VITALS: BP 147/59
[2021-05-13 22:03] LABS: HEMATOCRIT 41.5 % (37.0-47.0); HEMOGLOBIN 13.3 gm/dL (12.0-15.0); MCH 29.8 pg (26.0-34.0); MCHC 32.1 g/dL (28.0-37.0); RBC 4.46 mil/uL (4.20-5.00); RDW 14.2 % (10.5-14.5); WBC 9.1 thou/uL (4.0-11.0)
[2021-05-13 22:19] LABS: MAGNESIUM 2.3 mg/dL (1.8-2.4); POTASSIUM 3.4 mmol/L (3.5-5.1)
--- NOTE | 2021-05-13 22:21 | NUR ---
ELECTRICAL DESIGN ENGINEER called for seizure/postictal. See ELECTRICAL DESIGN ENGINEER flowsheet.
--- NOTE | 2021-05-13 22:22 | NUR ---
AT 7953 RAPID RESPONCE CALLED
[2021-05-13 23:13] LABS: BE(vivo) 4.2 mmol/L (-2 to +3); HCO3 28.4 mmol/L (22.0-26.0); PO2 72.4 mmHg (80.0-100.0); pH 7.459 (7.360-7.450); sO2 95.3 % (92.0-98.0)
[2021-05-14 04:33] VITALS: BP 142/81
[2021-05-14 05:56] LABS: ALBUMIN 3.1 g/dL (3.4-5.0); CALCIUM 8.7 mg/dL (8.5-10.1); CREATININE 0.7 mg/dL (0.6-1.0); MAGNESIUM 2.2 mg/dL (1.8-2.4); POTASSIUM 3.6 mmol/L (3.5-5.1); TOTAL BILIRUBIN 0.4 mg/dL (0.2-1.0); TOTAL PROTEIN 7.1 g/dL (6.4-8.2)
--- NOTE | 2021-05-14 07:10 | EKG ---
[address] [place] [address] ELECTROCARDIOGRAM REPORT Name: GILMAR ELDER Room #: 202-P ADM IN M.R.#: [id number] Admission: 05/11/21 Attend Phys: Tim Lee MD Discharge: Date of : 52 Report #: [id number] [facility] ED Test Date: 2021-05-11 Test Time: 17:24:27 Pat Name: GILMAR ELDER Department: Room: 202 Gender: F Wafer Cutter: MPARYessenia : 1950 Requested By: Rachelle Flower Order Number: [id number] MD: Micah Covarrubias Measurements Intervals [place] Rate: 97 P: 50 SD: 183 QRS: -29 QRSD: 78 T: 68 QT: 366 QTc: 465 Interpretive Statements Sinus rhythm Inferior infarct, old Consider anterior infarct Compared to ECG 04/04/2021 19:43:01 No significant changes Electronically Signed On 05-14-2021 7:10:27 CDT by Micah Covarrubias [email or web address] <ELECTRONICALLY SIGNED> By: Micah Covarrubias MD, [facility] 05/14/21 0710 23 23 Micah Covarrubias MD, FACC /EPI
[2021-05-14 07:42] VITALS: BP 123/67
--- NOTE | 2021-05-14 10:49 | NUR ---
ASSESSMENT: CM REVIEWED CHART AND SPOKE WITH ATTENDING. PT WAS ADMITTED FROM HER [facility] DUE TO CONCERNS OF HYPOXIA ON ROOM AIR. PT HAS HX OF ANOXIC BRAIN INJURY AND IS NONVERBAL. PTS GUARDIAN IS HER SISTER REJI CAIN. CM ATTEMPTED TO CONTACT REJI BUT VM WAS LEFT. MARÍA ELENA SPOKE WITH CHRISTIANO [phone] MORTGAGE BRANCH MANAGER AT [facility] WHO REPORTS PATIENT IS NORMALLY AMBULATORY WITHOUT DEVICE BUT THEY USE A GAIT BELT. PT NEEDS ASSISTANCE WITH ADLS AND FEEDING. PT IS ON A PUREED DIET WITH THICKENED LIQUIDS AT FACILITY. CHRISTIANO REQUESTING INFORMATION BE FAXED TO THE [facility] AT [phone]. CM FAXED UPDATED CLINICAL. PT HAD A SEIZURE LAST EVENING AND IS ON KEPPRA (PT DOES HAVE HX OF SEIZURES). PT ALSO REMAINS ON IV ANBX AND IV STEROIDS AT THIS TIME AND IS TO HAVE A BRONCH TODAY. PT HAS HAD [facility] IN THE PAST BUT NOT CURRENTLY. CM FAXED CLINICAL TO [facility] AND LEFT VM FOR HER GUARDIAN. MARÍA ELENA WILL CONTINUE TO FOLLOW TO ASSIST NEEDED.
[2021-05-14 11:00] VITALS: BP 145/73
[2021-05-14 15:46] VITALS: BP 120/61
--- NOTE | 2021-05-14 19:56 | NUR ---
RECEIVED THE PATIENT ON BED,ALERT TO SELF.ON ROOM AIR BREATHING SPONTANEOUSLY.NOT IN PAIN OR DISTRESS.ALL MEDICATIONS GIVEN.NEEDS ATTENDED.HAD AN EEG TODAY.FOR BRONCHOSCOPY TOMORROW.
[2021-05-14 20:00] VITALS: BP 110/48
[2021-05-15 03:36] LABS: CALCIUM 8.6 mg/dL (8.5-10.1); CREATININE 0.7 mg/dL (0.6-1.0); MAGNESIUM 2.1 mg/dL (1.8-2.4); PHOSPHORUS 4.2 mg/dL (2.5-4.9); POTASSIUM 3.4 mmol/L (3.5-5.1)
[2021-05-15 04:00] VITALS: BP 138/58
--- NOTE | 2021-05-15 07:31 | NUR ---
PATIENTS CARES WERE ASSUMED AT SHIFT CHANGE. PATIENT WAS ASSESSED AND MED SWERE PASSED. PATIENT WAS PLACED IN A SOFT MITT BILAT. DUE TO HER PICKING AND THE POSSIBILITY OF PULLING OUT THE IV'S. PATIENT CONTINUES ON A PPN GTT. ROUNDS WERE MADE, THE BED ALARM IS ON AND THE BED IS IN A LOW AND LOCKED POSITION.
[2021-05-15 10:35] VITALS: BP 121/58
[2021-05-15 11:45] LABS: BE(vivo) -0.6 mmol/L (-2 to +3); HCO3 24.6 mmol/L (22.0-26.0); PCO2 42.7 mmHg (35.0-45.0); PO2 229.4 mmHg (80.0-100.0); pH 7.378 (7.360-7.450); sO2 99.5 % (92.0-98.0)
[2021-05-15 12:30] VITALS: BP 122/51
--- NOTE | 2021-05-15 12:45 | HC ---
[facility] [place] [address] CONSULTATION Name: GILMAR ELDER Room #: 202-P ADM IN M.R.#: [id number] Admission: 05/11/21 Attend Phys: Tim Lee MD Discharge: Date of : 52 Report #: [id number] THIS REPORT FOR: cc: FAM - Family physician unknown FAM - Family physician unknown Jovani Correia MD ~ DOC #: [id number] Jovani Correia MD DATE OF SERVICE: 05/14/2021 HISTORY OF PRESENT ILLNESS: This is a 70-year-old female patient who was evaluated by me for seizure. I am unable to get any reliable history. The best I understand from the notes and talking to the hospital is Dr. Guzmán that this patient has a known history of seizures. She was n.p.o. where she missed some dosages of the medications. She is on Keppra. I need some more history. So I called a durable power of contract attorney, but I could not reach her. We will make another attempt to call her. REVIEW OF SYSTEMS: Only from the records. Apparently, she has anoxic brain injury at . She has a history of asthma and seizure. I do not know how frequent her seizure is. There is a history of pulmonary embolism, urinary tract infection, dysphagia, mental retardation, hypothyroidism, hypertension, hyperlipidemia and COPD. This was a relevant 14-point review of system. PAST MEDICAL HISTORY: Positive for seizure. FAMILY HISTORY: Unavailable. SOCIAL HISTORY: She apparently lives in a senior care and we will try to contact the patient's sister who is durable power of contract attorney. PHYSICAL EXAMINATION: Pretty limited. She was making some noises. She did not provide any reliable history. She wanted to do any cooperation with examination. I attempted cranial nerve and neuromuscular examination meningeal sign. She did not cooperate. It does not look like she has any meningeal sign. Cardiac exam is unremarkable. Respiratory examination is unremarkable. PHYSICAL EXAMINATION: VITAL SIGNS: Blood pressure is 145/73, pulse rate is 96. LABORATORY DATA: Indicates a normal white count. She received Keppra yesterday and it has been ordered for today and does all the history and examination, I can get. IMPRESSION: History of seizure, and breakthrough seizure because she missed dosages of medication. I will get an EEG. CT scan was reviewed and she does [facility] [address] [facility] [place] [address] CONSULTATION Name: GILMAR ELDER Room #: 202-P [facility] IN .R.#: [id number] Admission: 05/11/21 Attend Phys: Tim Lee MD Discharge: Date of : 52 Report #: [id number] have a meningioma indicating that she has a high propensity for seizures. Therefore, we will continue Keppra and adjust the dosages as necessary after talking to the patient's sister and a durable power of contract attorney. MD AI Cordova/WILLIE <ELECTRONICALLY SIGNED> By: Jovani Correia MD 05/15/21 1245 1442 2313 Jovani Correia MD /nt
--- NOTE | 2021-05-15 12:46 | EEG ---
[facility] [place] [address] [address] ELECTROENCEPHALOGRAM Name: GILMAR ELDER Room #: 202-P [facility] IN M.R.#: [id number] Admission: 05/11/21 Attend Phys: Tim Lee MD Discharge: Date of : 52 Report #: [id number] THIS REPORT FOR: //name// DOC #: [id number] Jovani Correia MD DATE OF SERVICE: 05/14/2021 This patient is being evaluated for seizure. EEG was done by placing the electrode by standard 10-20 system of electrode placement. Both referential and sequential montages were used for recording. Background activity in this patient's EEG is poorly formed. It would appear that it is about 6-7 Hz. It frequently shows what looks like sharper activity coming from both sides. IMPRESSION: This is an abnormal EEG because it is disorganized and poorly formed. It also demonstrated what looks like seizure activity coming from both sides. Clinical correlation is recommended. Thank you very much for this referral. Jovani Correia MD PK/RADHA <ELECTRONICALLY SIGNED> By: Jovani Correia MD 05/15/21 1246 0724 [id number] Jovani Correia MD /nt
[2021-05-15 13:30] VITALS: BP 102/48
[2021-05-15 14:30] VITALS: BP 102/51
--- NOTE | 2021-05-15 15:42 | NUR ---
spoke with [facility] today and faxed clinical information. Sp with christen Arguelles to alert cont plan for return to [facility] once stable. she is agreeable to plan. Speech therapist also sp with Kika who over sees care at [facility].
--- NOTE | 2021-05-15 16:55 | NUR ---
PATIENT WAS BROUGHT TO OR FOR BRONCHOSCOPY AT 0700H. PATIENT CAME BACK FOR OR POST BRONCHOSCOPY AROUND 1030AM. INITIALLY PATIENT WAS ON BIPAP THEN WEANED TO NASAL CANNULA AT 3LPM BY RT ON DUTY, SATURATING WELL.NO SIGNS OF PAIN. NOT IN DISTRESS.SPEECH THERAPIST CAME TO EVALUATE THE PATIENT AND PATIENT CAN START PUREED DIET FROM TOMORROW.ALL PATIENT NEEDS ATTENDED.
[2021-05-15 19:20] VITALS: BP 97/53
[2021-05-16 03:05] LABS: ABSOLUTE NEUTROPHILS 6.6 thou/uL (1.4-8.2); BASOPHILS 0.3 % (0.0-2.0); EOSINOPHILS 0.1 % (0.0-3.0); HEMATOCRIT 31.9 % (37.0-47.0); LYMPHOCYTES 9.9 % (24.0-44.0); MCH 30.6 pg (26.0-34.0); MCHC 33.8 g/dL (28.0-37.0); MCV 90.6 fL (80.0-100.0); MONOCYTES 9.6 % (1.0-8.0); PLATELET COUNT 128 thou/uL (150-400); POLYS 80.1 % (36.0-66.0); RBC 3.52 mil/uL (4.20-5.00); RDW 13.5 % (10.5-14.5); WBC 8.2 thou/uL (4.0-11.0)
[2021-05-16 03:07] LABS: HEMOGLOBIN 10.8 gm/dL (12.0-15.0)
[2021-05-16 03:14] LABS: ALBUMIN 2.8 g/dL (3.4-5.0); CREATININE 0.8 mg/dL (0.6-1.0); PHOSPHORUS 4.4 mg/dL (2.5-4.9); POTASSIUM 4.1 mmol/L (3.5-5.1)
[2021-05-16 03:20] LABS: ALBUMIN 2.7 g/dL (3.4-5.0); CALCIUM 8.2 mg/dL (8.5-10.1); CREATININE 0.8 mg/dL (0.6-1.0); TOTAL BILIRUBIN 0.4 mg/dL (0.2-1.0); TOTAL PROTEIN 6.3 g/dL (6.4-8.2)
[2021-05-16 04:13] VITALS: BP 138/63
[2021-05-16 08:00] VITALS: BP 115/46
[2021-05-16 12:50] VITALS: BP 126/40
[2021-05-16 16:00] VITALS: BP 108/45
[2021-05-16 19:53] VITALS: BP 131/54
--- NOTE | 2021-05-16 19:53 | NUR ---
PT IS AWAKE, ORIENTED TO SELF; PT IS UNABLE TO ANSWER QUESTIONS, BUT GRUNTS AND CALLS OUT "MAMA." VSS, AFEBRILE, SR ON THE MONITOR. PT STARTED ON HONEY THICK FLUIDS, PUREED DIET. TPN D/C'D. DR HARMON CONSULTED, DR HEMPHILL CONSULTED. POC IS TO CONTINUE TO PROGRESS PT TOWARDS D/C GOALS OF ORAL MEDS AND NO HOME O2. RT CONSULTED, REDUCED PT TO 2L NC; BREATHING TREATMENTS AND PERCUSSION THERAPY COMPLETED THROUGHOUT THE DAY. FALL PRECAUTIONS IN PLACE. SEIZURE PRECAUTIONS IN PLACE. PT IS ON MITTEN RESTRAINTS; PT PULLS AT IV AND NC. RENEWED FOR ASSET RECOVERY SPECIALIST. NO CONCERNS AT THIS TIME.
[2021-05-17 03:42] VITALS: BP 154/55
--- NOTE | 2021-05-17 03:49 | NUR ---
PT IS AWAKE BUT NOT ALERT TO OREINTATION. WHEN SHE NEEDS TO BE CHANGED SHE CALLS OUT MAMA OUT TO THE DESK AREA. PT IS INCONTINENT AND FREQENT CHANGED AND [facility] DONE WITH SHIFT. SIDE RAILS PADED DUE TO PAST SEIZURE WITH HOSPITALIZATION. WILL CONTINUE TO MONITOR AND ASESSS. RESP DUE PERCUSION TREATMENTS ON HER TERIBLE COUGH AND WHEEZY. ON 2 LITERS PER NASAL CANULA AT THIS TIME. ONGOING NURSING CARE
[2021-05-17 07:15] VITALS: BP 143/76
[2021-05-17] MEDS ORDERED: AUGMENTIN600 MG/5 M PO (08:06)
[2021-05-17] MEDS ORDERED: PREDNISONE 20 M20 MG PO (08:07)
[2021-05-17 11:20] VITALS: BP 143/76
--- NOTE | 2021-05-17 12:10 | NUR ---
FAXED DISCHARGE ORDERS AND SUMMARY TO [facility] WHERE PATIENT RESIDES. CONFIRMED WITH CHRISTIANO/RADIO BOARD OPERATOR ANNOUNCER [phone] AND NORM/JEWEL DIAMETER GAUGER OF [facility] THAT PATIENT WILL DISCHARGE TODAY, 05/17/21. [facility] TO WELDER ASSISTANT PATIENT BETWEEN 15:00-15:30 W/02. [facility] P [phone]; FAX [phone]; NORM/JEWEL DIAMETER GAUGER M [phone] FAXED DISCHARGE ORDERS AND SUMMARY TO [facility]. CONFIRMED WITH NGUYEN/INTAKE THAT PATIENT HAS BEEN ON SERVICE WITH THEM IN THE PAST AND CAN BEGIN SERVICES ON FRIDAY (05/18) OR FRIDAY (05/19). [facility] P [phone]; FAX [phone] [facility] P [phone]; FAX [phone] FAMILY INFORMED: REJI (SISTER) [phone] [facility] P [phone]; FAX [phone]
--- NOTE | 2021-05-17 12:21 | NUR ---
Pt dcing back to her [facility] today with hh orders. CM to setup a w/c van with o2 for 3pm transport as they are not able to provide for her. The dc brand planner has faxed her dc orders and meds to both the facility and [facility]. Her hh provider is [facility] and orders have been faxed to them as well. Ginger Farmer spoke with her care kushal Worrell (Sergey no longer there) and he indicates that the already has home o2 in place and is normally on 2 liters there. He did recieve her orders and is expecting her this afternoon. Dc brand planner to call both Kindra and Cait (sisters/legal guardians) to confirm the dc time. Chart copy in progress to be sent with the pt.
[2021-05-17 12:23] VITALS: BP 143/76
--- NOTE | 2021-05-17 13:42 | NUR ---
CONFIRMED WITH PATIENT'S SISTERS GODFREY AND REJI THAT PATIENT IS DISCHARGING TODAY AND [facility] TO PICKUP PATIENT BETWEEN 15:00-15:30. THEY ARE IN AGREEMENT ABOUT THE DISCHARGE AND APPRECIATED THE UPDATE.
[2021-05-17 15:30] VITALS: BP 137/68
--- NOTE | 2021-05-17 17:07 | PATH ---
[facility] [address] [place] [address] PATHOLOGY RPT PROCEDURE Name: HOOKGILMAR Room #: 202-P DIS IN M.R.#: [id number] Admission: 05/11/21 Date of : 52 Discharge: 05/17/21 Report #: [id number] Path Case #: [id number] LCA Accession Number: [id number] . 01 Material submitted: . lung - SERENA, TBNA FORCEPS. Modifiers: left, upper, LOBE . 01 Clinical history: . ACUTE RESPIRATORY INSUFFICIENCY COLLAPSE OF L UPPER LOBE . 02 Diagnosis: Lung, left upper lobe, TBNA forceps biopsy: - Fragments of benign reactive bronchial epithelium as well as cartilage. - Mild chronic inflammation. - Negative for dysplasia or malignancy. . (IUV:mml; 05/17/2021) QLM 05/17/2021 1544 Local . 02 Electronically signed: . Zita Potter MD, Pathologist NPI- [id number] . 01 Gross description: . Received in formalin labeled "Hook, Gilmar and SERENA". Received are multiple soriano-brown lung biopsies ranging from 0.2-0.3 cm. The specimen is entirely submitted in cassette A1.(J; 05/15/2021) J/J 05/16/2021 0003 Local . 02 Pathologist provided ICD-10: J98.4 . 02 CPT . 886888 Specimen Comment: A courtesy copy of this report has been sent to [phone] Specimen Comment: Report sent to Performed at: [address], [place] [id number] MD Donovan Baxter MD Phone: [phone] Performed at: [address] [id number] MD Zita Potter MD Phone: [phone]
[2021-05-20] MEDS ORDERED: SEROQUEL 50 MG50 M1 PO (20:47)
[2021-05-20] MEDS ORDERED: ALLERGY RELIEF5 MG PO (20:48)
--- NOTE | 2021-05-22 10:06 | PATH ---
[facility] [address] [place] [address] PATHOLOGY RPT PROCEDURE Name: GILMAR ELDER Room #: 202-P [facility] IN .R.#: [id number] Admission: 05/11/21 Date of : 52 Discharge: 05/17/21 Report #: [id number] Path Case #: [id number] Note LCA Accession Number: [id number] TESTS RESULT FLAG UNITS REF RANGE LAB Clinician Provided Cytology Information No. of containers..01 Other (Miscellaneous) Source: SERENA BAL DIAGNOSIS: SERENA BAL NEGATIVE FOR MALIGNANT EPITHELIAL CELLS. REACTIVE BRONCHIAL CELLS ARE PRESENT. PULMONARY MACROPHAGES PRESENT, INDICATIVE OF LOWER RESPIRATORY TRACT SAMPLING. Signed out by: 02 Zita Potter MD, Pathologist NPI- [id number] Performed by: Katerina Powell Jordan Worker ([facility]) Gross description: 01 10ML, CLOUDY COLORLES, 1 TP /LCS 05/17/2021 0057 Local FLAG LEGEND: L-Low Normal,H-High Normal,LL-Alert Low,HH-Alert High <-Panic Low,>-Panic High,A-Abnormal,AA-Critical Abnormal Performed at: [address] [place] [address] Donovan Baxter MD, [address] [address] Zita Potter MD, Specimen Comment: A courtesy copy of this report has been sent to [phone], [phone] Specimen Comment: [phone] Specimen Comment: Report sent to / DR CHRISTIANSEN Specimen Comment: A duplicate report has been generated due to demographic updates. Performed at: [address], [place], [place] [id number] MD Donovan Baxter MD Phone: [phone]
--- NOTE | 2021-05-22 11:07 | PATH ---
[facility] [address] [place] [address] PATHOLOGY RPT PROCEDURE Name: GILMAR ELDER Room #: 202-P [facility] IN .R.#: [id number] Admission: 05/11/21 Date of : 52 Discharge: 05/17/21 Report #: [id number] Path Case #: [id number] Note LCA Accession Number: [id number] TESTS RESULT FLAG UNITS REF RANGE LAB Clinician Provided Cytology Information No. of containers..01 Other (Miscellaneous) Source: SERENA BRUSHING DIAGNOSIS: 02 SERENA BRUSHING NEGATIVE FOR MALIGNANT EPITHELIAL CELLS. REACTIVE BRONCHIAL CELLS ARE PRESENT. Signed out by: 02 Zita Potter MD, Pathologist NPI- [id number] Performed by: Katerina Powell, Ballet Dancer ([facility]) Gross description: 01 NI, CLEAR COLORLESS, 1 TP /LCS 05/17/2021 0057 Local FLAG LEGEND: L-Low Normal,H-High Normal,LL-Alert Low,HH-Alert High <-Panic Low,>-Panic High,A-Abnormal,AA-Critical Abnormal Performed at: [address] [place] [address] Donovan Baxter MD, [address] [address] Zita Potter MD, Specimen Comment: A courtesy copy of this report has been sent to [phone] Specimen Comment: [phone] Specimen Comment: Report sent to / DR CHRISTIANSEN Specimen Comment: A duplicate report has been generated due to demographic updates. Performed at: [address], [place], [place] [id number] MD Donovan Baxter MD Phone: [phone]
[2021-05-24] MEDS ORDERED: ELIQUIS5 MG PER TUBE (13:13)
[2021-05-24] MEDS ORDERED: FLINTSTONES GU1 EACH PER TUBE (13:13)
[2021-05-24] MEDS ORDERED: ZOCOR20 MG PER TUBE (13:13)
[2021-05-24] MEDS ORDERED: GUAIFENESIN200 MG PER TUBE (13:13)
[2021-05-24] MEDS ORDERED: ACETAMINOPHEN500 MG PER TUBE (13:13)
[2021-05-24] MEDS ORDERED: SEROQUEL 50 MG50 M1 PER TUBE (13:13)
[2021-05-24] MEDS ORDERED: OMEPRAZOLE40 MG PER TUBE (13:13)
[2021-05-24] MEDS ORDERED: SINGULAIR 10 MG10 MG PER TUBE (13:13)
[2021-05-24] MEDS ORDERED: SINEMET 25-1001 EAC1 PER TUBE (13:13)
[2021-05-24] MEDS ORDERED: KEPPRA 500 MG500 M1 PER TUBE (13:13)
[2021-05-28] MEDS ORDERED: AUGMENTIN 875-1 EACH PO (12:42)
== END 2021-05-17 15:56 | disposition home health service (06) | DRG 166 ==
LOC: ER 17:11 → 2N 19:55 → EROBS 19:55 → 2N 21:26
PROVIDERS: Emergency Medicine; Hospitalist; Nurse Practitioner Family; Pediatrics; ADMIT Hospitalist; ATTEND Hospitalist
PROC: 0B9G8ZX Drainage of Left Upper Lung Lobe, Via Natural or Artificial Opening Endoscopic, Diagnostic (ICD-10-PCS; principal; 2021-05-15)
PROC: 5A09357 Assistance with Respiratory Ventilation, Less than 24 Consecutive Hours, Continuous Positive Airway Pressure (ICD-10-PCS; principal; 2021-05-15)
PROC: 0BDG8ZX Extraction of Left Upper Lung Lobe, Via Natural or Artificial Opening Endoscopic, Diagnostic (ICD-10-PCS; principal; 2021-05-15)
PROC: 0BBG8ZX Excision of Left Upper Lung Lobe, Via Natural or Artificial Opening Endoscopic, Diagnostic (ICD-10-PCS; principal; 2021-05-15)
DX: J18.9 Pneumonia, unspecified organism (principal); J96.21 Acute and chronic respiratory failure with hypoxia; E46 Unspecified protein-calorie malnutrition; J98.19 Other pulmonary collapse; J98.11 Atelectasis; E87.0 Hyperosmolality and hypernatremia; J44.0 Chronic obstructive pulmonary disease with (acute) lower respiratory infection; J45.909 Unspecified asthma, uncomplicated; E03.9 Hypothyroidism, unspecified; I10 Essential (primary) hypertension; E78.5 Hyperlipidemia, unspecified; R13.10 Dysphagia, unspecified; E87.5 Hyperkalemia; D64.9 Anemia, unspecified; Z86.16 Personal history of COVID-19; Z68.25 Body mass index [BMI] 25.0-25.9, adult
CPT/HCPCS: 10081; 50010; 62110; 62900; 70005

== ENCOUNTER 2021-05-20 20:07 | Inpatient (IN) | payer OTHER ==
[~2021-05-20] VITALS: Ht 160 cm; Wt 62.6 kg
[~2021-05-20 20:07] MED LIST changes: +AUGMENTIN600 MG/5 M PO; +LEVOCETIRIZINE D5 MG PO
[2021-05-20 20:08] VITALS: BP 117/75
[2021-05-20 20:42] LABS: HCO3 30.5 mmol/L (22.0-26.0); PCO2 49.3 mmHg (35.0-45.0); sO2 94.3 % (92.0-98.0)
[2021-05-20] MEDS ORDERED: SEROQUEL 50 MG50 M1 PO ×2 (20:47)
[2021-05-20] MEDS ORDERED: ALLERGY RELIEF5 MG PO ×2 (20:48)
[2021-05-20 21:04] LABS: ABSOLUTE NEUTROPHILS 6.2 thou/uL (1.4-8.2); BASOPHILS 0.4 % (0.0-2.0); EOSINOPHILS 0.3 % (0.0-3.0); HEMATOCRIT 35.3 % (37.0-47.0); HEMOGLOBIN 11.8 gm/dL (12.0-15.0); LYMPHOCYTES 11.5 % (24.0-44.0); MCH 30.3 pg (26.0-34.0); MCHC 33.3 g/dL (28.0-37.0); MCV 91.1 fL (80.0-100.0); PLATELET COUNT 139 thou/uL (150-400); POLYS 80.8 % (36.0-66.0); RBC 3.88 mil/uL (4.20-5.00); RDW 13.4 % (10.5-14.5); WBC 7.7 thou/uL (4.0-11.0)
[2021-05-20 21:21] LABS: ANION GAP 5 mmol/L (7-16); BUN 21 mg/dL (7-18); CALCIUM 8.6 mg/dL (8.5-10.1); CHLORIDE 110 mmol/L (98-107); CO2 33 mmol/L (21-32); CREATININE 0.8 mg/dL (0.6-1.0); GLUCOSE 135 mg/dL (74-106); POTASSIUM 4.2 mmol/L (3.5-5.1); SODIUM 148 mmol/L (136-145)
[2021-05-20 21:25] LABS: ALBUMIN 2.9 g/dL (3.4-5.0); DIRECT BILIRUBIN < 0.1 mg/dL (<0.1-0.2); SGOT 16 U/L (15-37); SGPT 14 U/L (14-59); TOTAL BILIRUBIN 0.2 mg/dL (0.2-1.0); TOTAL PROTEIN 6.8 g/dL (6.4-8.2); TROPONIN-I <0.06 ng/mL (<0.06)
[2021-05-20 23:33] VITALS: BP 134/55
[2021-05-20 23:59] VITALS: BP 143/56
--- NOTE | 2021-05-21 03:29 | NUR ---
ASSESSMENT: PT ARRIVED FROM ED, VIA CART AT APPROXIMATELY 0000. PT IS ALERT AND NON-VERBAL. DIFFICULT TO ASSESS HOW ORIENT PT IS. DOES SEEM TO FOLLOW SIMPLE COMMANDS. DOES NOT LIKE BEING TOUCHED OR BOTHERED WITH, PT YELLS AND PULLS AWAY. PT HAD ONE BM THIS SHIFT, USES THE BEDPAN. VSS, SR PER MONITOR. CALL BUTTON IN PLACE. CURRENTLY NPO PER ORDERS. PPN INITATED PER LEFT FOREARM PERIPHERAL IV. ON 4L PER NASAL CANNULA. ABLE TO COUGH UP SPUTUM. WILL CONTINUE TO MONITOR.
[2021-05-21 05:00] VITALS: BP 139/54
[2021-05-21 07:45] VITALS: BP 166/78
--- NOTE | 2021-05-21 09:32 | EKG ---
[address] [employer] [place] [address] ELECTROCARDIOGRAM REPORT Name: GILMAR ELDER Room #: 457-P ADM IN .R.#: [id number] Admission: 05/20/21 Attend Phys: Misha Askew MD Discharge: Date of : 52 Report #: [id number] [facility] ED Test Date: 2021-05-20 Test Time: 20:42:37 Pat Name: GILMAR ELDER Department: Room: [facility] Gender: F Clinical Training Specialist: RYAN : 1950 Requested By: Rachelle Flower Order Number: [id number] MD: Micah Covarrubias Measurements Intervals [place] Rate: 88 P: 61 HI: 182 QRS: -19 QRSD: 87 T: 58 QT: 373 QTc: 452 Interpretive Statements Sinus rhythm Abnormal R-wave progression, early transition Inferior infarct, old Compared to ECG 05/11/2021 17:24:27 No significant changes Electronically Signed On 05-21-2021 9:32:35 CDT by Micah Covarrubias [email or web address] <ELECTRONICALLY SIGNED> By: Micah Covarrubias MD, [facility] 07/04/06 [phone] 41 Micah Covarrubias MD, [facility] /EPI
[2021-05-21 10:51] VITALS: BP 144/75
--- NOTE | 2021-05-21 14:41 | NUR ---
Received awake on bed. On nothing per orem, mouth swabs. On telemetry; no signs of chest pain, crushing sensation and heaviness. Assisted in ADLs. On O2 at 3 lpm via nasal cannula. Pt non verbal, checked frequently. No nausea, no vomiting and no abdominal pain noted. On blood sugar monitoring- taken and recorded accordingly. Incontinent of bowel and bladder, checked frequently and changed as needed. Turned on her sides regularly. Falls bundle in place. With L UA IV; PPN infusing at 80cc/hr, with SL at L hand- on IV antibiotics. Suctioned secretions as needed; on breathing treatments. Pt's sister Taco called today, update given. Pt seen and examined by Dr Guzmán and Dr Kinney- chest xray, Swallow eval and blood draw ordered. With Gastro consult- pt seen and examined by Dr Calles today. To continue monitoring patient.
[2021-05-21 15:30] VITALS: BP 144/76
[2021-05-21 20:58] VITALS: BP 143/49
[2021-05-22 05:36] LABS: HEMATOCRIT 31.7 % (37.0-47.0); HEMOGLOBIN 10.6 gm/dL (12.0-15.0); MCH 30.2 pg (26.0-34.0); MCHC 33.5 g/dL (28.0-37.0); RBC 3.52 mil/uL (4.20-5.00); RDW 13.6 % (10.5-14.5); WBC 11.2 thou/uL (4.0-11.0)
[2021-05-22 05:45] LABS: ALBUMIN 2.8 g/dL (3.4-5.0); CALCIUM 8.5 mg/dL (8.5-10.1); CREATININE 0.8 mg/dL (0.6-1.0); POTASSIUM 3.4 mmol/L (3.5-5.1); TOTAL BILIRUBIN 0.4 mg/dL (0.2-1.0); TOTAL PROTEIN 6.4 g/dL (6.4-8.2)
[2021-05-22 07:25] VITALS: BP 112/93
--- NOTE | 2021-05-22 07:58 | NUR ---
ASSUMED CARE OF PT AT SHIFT CHANGE. PT IS ALERT BUT IS NON-VERBAL. FALL PRECAUTION IN PLACE. ASSESSMENT CHARTED. PPN COONTINUED. 3L O2 VIA NC CONTINUED. PT WAS INCT THIS SHIFT. VSS AND NO S/S OF ACUTE DISTRES. REPORT GIVEN TO ONCOMING RN.
[2021-05-22 15:38] VITALS: BP 123/57
--- NOTE | 2021-05-22 16:00 | NUR ---
PT ADMITTED RELATED TO HYPOXIA, MUCOUS PLUGGING OF BRONCHI. CM REVIEWED CHART AND SPOKE WITH CARE TEAM. PT IS NON VERBAL FROM A LONG TERM. PT'S SISTER REJI IS HER GUARDIAN AND LEFT A VM. CM CALLED PT'S SISTER GODFREY. SHE INDICATED THAT PT RESIDES IN A LONG TERM IN [place]. SHE INDIATED THAT PT HAD BEEN AMBULATORY WITH STAFF ASSIST WITH A GAIT BELT SUPERVISOR FORMING DEPARTMENT. PT NEEDED ASSISTANCE WITH EATING AND ADLS. PT HAD O2 AT THE COMMUNITY. SHE INDICATED THAT FISH CLEANER MACHINE TENDER AT HOME IS CHRISTIANO AND LYNNE WHO IS WORKING TO GET STAFF TRAINED ON HOW TO MANAGE PT'S NEW PEG. PT HAD PEG PLACED THIS DAY. PT HAD DISCHARGED FROM HERE WITH [facility] ON 05/17. SISTER INDICATED THAT PLAN IS FOR PT TO RETURN TO HER LONG TERM ONCE MEDICALLY STABLE. CM TO FAX CLINICAL UPDATES TO FACILITY. CM FOLLOWING REGARDING DC PLANNING.
--- NOTE | 2021-05-22 19:19 | NUR ---
Assumed pt care at 7am.Assessment completed.vss.Sr per telemetry.Dr redmond her,new order noted.Pt left for peg tube placement at 1300 and returned 1530 in stable condition.Ppn infusing at present and zosyn on right hamd at present.Dr Kinney here later this evening and order noted.No distress s/s noted. Will continue to monitor.
[2021-05-22 19:51] VITALS: BP 139/52
--- NOTE | 2021-05-23 07:00 | NUR ---
Assumed pt care at 1900. A/OX1,murmbles some words once in a while.VSS. No s/sx of pain. Incontinent of bladder,pericare done as needed. Pt is NPO,PPN infusing via LFA w/o problems voiced. NSR on telemetry. Peg tube in place,nothing infusing at this time. Fall precautions in place,frequent checks on pt.
[2021-05-23 07:19] VITALS: BP 139/64
--- NOTE | 2021-05-23 12:57 | NUR ---
PT AWAKE BUT NON VERBAL. VSS. PPN INFUSING PER ORDER. O2 3L. PEG TUBE BLEEDING GI AWARE TUBE FEEDINGS ON HOLD FOR NOW. WILL CONTINUE TO MONITOR.
[2021-05-23 15:10] VITALS: BP 104/72
--- NOTE | 2021-05-23 15:14 | NUR ---
CM CALLED LYNNE AT PT'S [facility]UR[facility] THIS AM. CM FAXED CLINICAL INFO TO HER. IT WAS INDICATED THAT PT WAS HAVING SOME BLEEDING AT PEG SITE AND THAT TUBE FEEDS ARE TO BE INITIATED ONCE THAT IS ADDRESSED/RESOLVED. PHYSICIAN ORDERED JEVITY 1.5 BOLUS FEEDING QID WITH FLUSHES 100CC QID. CM FAXED REFERRAL OVER TO [facility] FOR REVIEW FOR ENTERAL TUBE FEEDING SUPPLIES. THEY RECEIVED REFERRAL AND BLANK WILL BE WORKING UP REFERRAL AND WILL REACH BACK OUT TO . IT IS ANTIPCATED THAT PT MAY BE MEDICALLY STABLE TO DC BACK TO SKILLED NURSING WITH [facility] WITH [facility] TUBER FEEDING SUPPLIES TOMORROW. CM FOLLOWING REGARDING DC PLANNING.
[2021-05-23 19:18] VITALS: BP 111/51
--- NOTE | 2021-05-24 06:16 | NUR ---
Assumed pt care at 1900. Alert to self only,calm and cooperative with cares. VSS. No s/sx of pain or discomfort noted. Incontinent of bladder this shift. Remains NPO,PEG tube patent no more bleeding noted at night,binder in place. On PPN @ 80ml/hr w/o problems. IV on LFA infiltrated,discontinued. IV on right hand patent;attempted to put a second IV X5 w/o luck d/t multiple IV meds;will relay to oncoming nurse. Fall precautions in place,will continue to monitor pt.
[2021-05-24 07:16] VITALS: BP 140/62
[2021-05-24 09:32] VITALS: BP 140/62
--- NOTE | 2021-05-24 09:56 | NUR ---
Recommend Jevity 1.5 start at 30 ml/hr to goal rate 50ml/hr as tolerated. H2O flushes at 150ml q 4hrs. If bolus delivery preferred, recommend Jevity 1.5, 5 cans/day. H2O flushes at 90 ml before and after each bolus
[2021-05-24] MEDS ORDERED: OMEPRAZOLE40 MG PER TUBE ×2 (13:13)
[2021-05-24] MEDS ORDERED: ACETAMINOPHEN500 MG PER TUBE ×2 (13:13)
[2021-05-24] MEDS ORDERED: FLINTSTONES GU1 EACH PER TUBE ×2 (13:13)
[2021-05-24] MEDS ORDERED: SINGULAIR 10 MG10 MG PER TUBE ×2 (13:13)
[2021-05-24] MEDS ORDERED: GUAIFENESIN200 MG PER TUBE ×2 (13:13)
[2021-05-24] MEDS ORDERED: ELIQUIS5 MG PER TUBE ×2 (13:13)
[2021-05-24] MEDS ORDERED: SEROQUEL 50 MG50 M1 PER TUBE ×2 (13:13)
[2021-05-24] MEDS ORDERED: KEPPRA 500 MG500 M1 PER TUBE ×2 (13:13)
[2021-05-24] MEDS ORDERED: SINEMET 25-1001 EAC1 PER TUBE ×2 (13:13)
[2021-05-24] MEDS ORDERED: ZOCOR20 MG PER TUBE ×2 (13:13)
[2021-05-24 13:22] VITALS: BP 140/62
--- NOTE | 2021-05-24 15:12 | NUR ---
CARE TEAM INDICATED THAT PT IS MEDICALLY STABLE TO DC BACK TO [facility] THIS DAY. MARÍA ELENA CALLED AND SPOKE WITH SUZANNE THEY HAVE ORDERS TO PROVIDE PT'S TUBE FEEDING THE JEVITY UPON DC AND BLANK WILL REACH OUT TO LYNNE TO ARRANGED DELIVERY. MARÍA ELENA SPOKE WITH LYNNE AND SHE ASKED THAT PT BE SENT WITH AN ADDITIONAL ABD BINDER AND SOME SURINGES. CM FAXED ORDERS TO LYNNE, [facility], [facility], AND [facility]. PHYSICIAN HAD TO FIX DC ORDERS PT IS NPO AND ALL MEDS NEED TO BE ADMINISTERED VIA PEG. CM RESENT CORRECTED ORDERS TO ALL THE PROVIDERS ABOVE. CM ARRANGED [facility] FOR MAINFRAME DEVELOPER BETWEEN [phone]. CM NOTIFIED PT'S SISTER GODFREY AND SHE IS AWARE AND AGREEABLE. CM SPOKE WITH RANDALL AT THE [facility] AND CLARIFIED ALL THE ABOVE WELL. NO OTHER CM INTERVENTION INDICATED. CASE CLOSED.
--- NOTE | 2021-05-24 16:00 | NUR ---
Assumed pt care at 7aam.Pt in bed alert and oriented toself only.Assessment completed.vss.Pt dc'd piv later this am.Iv team called and it was replaced. Dr Guzmán here,dc order noted.senior asset manager arranged for home health.Received call pt caregiver regarding tube feeding and home meds,updates given.Dc summary compile.Saline lock dc'd prior to pt dc home at 1600.
== END 2021-05-24 15:00 | disposition home health service (06) | DRG 177 ==
LOC: ER 20:07 → EROBS 21:48 → 4W 21:48
PROVIDERS: Emergency Medicine; ADMIT Hospitalist; ATTEND Hospitalist
PROC: 0D768ZZ Dilation of Stomach, Via Natural or Artificial Opening Endoscopic (ICD-10-PCS; principal; 2021-05-22)
PROC: 0DH63UZ Insertion of Feeding Device into Stomach, Percutaneous Approach (ICD-10-PCS; 2021-05-23)
DX: J69.0 Pneumonitis due to inhalation of food and vomit (principal); J96.21 Acute and chronic respiratory failure with hypoxia; I26.99 Other pulmonary embolism without acute cor pulmonale; J98.11 Atelectasis; J44.1 Chronic obstructive pulmonary disease with (acute) exacerbation; G93.1 Anoxic brain damage, not elsewhere classified; Z20.822 Contact with and (suspected) exposure to COVID-19; J45.909 Unspecified asthma, uncomplicated; E03.9 Hypothyroidism, unspecified; E78.5 Hyperlipidemia, unspecified; I10 Essential (primary) hypertension; G40.909 Epilepsy, unspecified, not intractable, without status epilepticus; R13.12 Dysphagia, oropharyngeal phase; Z86.711 Personal history of pulmonary embolism; Z86.16 Personal history of COVID-19; Z79.01 Long term (current) use of anticoagulants; Z79.899 Other long term (current) drug therapy
CPT/HCPCS: 10045; 62110; 62900; 70005

== ENCOUNTER 2021-05-25 12:22 | Inpatient (IN) | payer OTHER ==
[~2021-05-25] VITALS: Ht 160 cm; Wt 64.5 kg
[~2021-05-25 12:22] MED LIST changes: +ACETAMINOPHEN500 MG PER TUBE; +ALLERGY RELIEF5 MG PO; +ELIQUIS5 MG PER TUBE; +FLINTSTONES GU1 EACH PER TUBE; +GUAIFENESIN200 MG PER TUBE; +KEPPRA 500 MG500 M1 PER TUBE; +OMEPRAZOLE40 MG PER TUBE; +SEROQUEL 50 MG50 M1 PER TUBE; +SEROQUEL 50 MG50 M1 PO; +SINEMET 25-1001 EAC1 PER TUBE; +SINGULAIR 10 MG10 MG PER TUBE; +ZOCOR20 MG PER TUBE
[2021-05-25 12:44] LABS: BASOPHILS 0.4 % (0.0-2.0); EOSINOPHILS 0.2 % (0.0-3.0); HEMATOCRIT 34.9 % (37.0-47.0); HEMOGLOBIN 11.5 gm/dL (12.0-15.0); LYMPHOCYTES 5.3 % (24.0-44.0); MCH 29.8 pg (26.0-34.0); MCHC 32.9 g/dL (28.0-37.0); MCV 90.6 fL (80.0-100.0); MONOCYTES 5.1 % (1.0-8.0); PLATELET COUNT 144 thou/uL (150-400); RBC 3.85 mil/uL (4.20-5.00); RDW 14.2 % (10.5-14.5); WBC 11.2 thou/uL (4.0-11.0)
[2021-05-25 12:48] LABS: URINE BILIRUBIN NEGATIVE (Negative); URINE BLOOD NEGATIVE (Negative); URINE CLARITY CLEAR; URINE COLOR YELLOW; URINE GLUCOSE-RANDOM* NEGATIVE (Negative); URINE KETONES NEGATIVE (Negative); URINE LEUKOCYTES-REFLEX NEGATIVE (Negative); URINE NITRITE-REFLEX NEGATIVE (Negative); URINE PROTEIN (DIPSTICK) NEGATIVE (Negative); URINE SPECIFIC GRAVITY 1.015 (1.005-1.035); URINE UROBILINOGEN 0.2 E.U./dl (0.2-1.0)
[2021-05-25 12:51] LABS: ANION GAP 5 mmol/L (7-16); BUN 38 mg/dL (7-18); CALCIUM 8.7 mg/dL (8.5-10.1); CHLORIDE 106 mmol/L (98-107); CO2 32 mmol/L (21-32); CREATININE 0.9 mg/dL (0.6-1.0); GLUCOSE 187 mg/dL (74-106); POTASSIUM 3.8 mmol/L (3.5-5.1); SODIUM 143 mmol/L (136-145)
--- NOTE | 2021-05-25 13:00 | EKG ---
[place] [address] [facility] [place] [address] ELECTROCARDIOGRAM REPORT Name: GILMAR ELDER Room #: PRE [facility]#: [id number] Admission: Attend Phys: Discharge: Date of : 52 Report #: [id number] [facility] ED Test Date: 2021-05-25 Test Time: 12:34:38 Pat Name: GILMAR ELDER Department: Room: Gender: F Drum Stock Clerk: kathie : 1950 Requested By: Naren Medina Order Number: [id number] MD: Micah Covarrubias Measurements Intervals [place] Rate: 94 P: 51 CT: 174 QRS: -22 QRSD: 83 T: 65 QT: 354 QTc: 443 Interpretive Statements Sinus rhythm Abnormal R-wave progression, early transition Left ventricular hypertrophy Inferior infarct, old Compared to ECG 05/20/2021 20:42:37 Left ventricular hypertrophy now present Myocardial infarct finding still present Electronically Signed On 05-25-2021 13:00:35 CDT by Micah Covarrubias [email or web address] <ELECTRONICALLY SIGNED> By: Micah Covarrubias MD, [facility] 05/25/21 1300 1234 1234 Micah Covarrubias MD, FAC /EPI
[2021-05-25 13:02] LABS: ALBUMIN 2.9 g/dL (3.4-5.0); SGOT 15 U/L (15-37); SGPT 17 U/L (14-59); TOTAL BILIRUBIN 0.3 mg/dL (0.2-1.0); TOTAL PROTEIN 6.6 g/dL (6.4-8.2); TROPONIN-I <0.06 ng/mL (<0.06)
[2021-05-25 14:43] VITALS: BP 113/50
[2021-05-25 15:53] VITALS: BP 101/50
[2021-05-25 16:10] VITALS: BP 114/55
[2021-05-25 20:15] VITALS: BP 144/61
[2021-05-26 04:33] LABS: MCH 30.4 pg (26.0-34.0); MCHC 33.4 g/dL (28.0-37.0); MCV 91.3 fL (80.0-100.0); RBC 3.62 mil/uL (4.20-5.00); RDW 13.8 % (10.5-14.5); WBC 8.6 thou/uL (4.0-11.0)
[2021-05-26 04:45] VITALS: BP 150/76
[2021-05-26 04:54] LABS: CALCIUM 8.3 mg/dL (8.5-10.1); CREATININE 0.8 mg/dL (0.6-1.0); POTASSIUM 3.5 mmol/L (3.5-5.1)
--- NOTE | 2021-05-26 05:57 | NUR ---
ASSUMED CARE OF PATIENT AT 1900. PATIENT NONVERBAL BUT ABLE TO FOLLOW LIMITED COMMANDS. REMAINS AT BASELINE. NO APPARENT DISTRESS. TURNED Q2, NEW IV PLACED. NEEDS MIDLINE FOR EASY LAB DRAWS. POC GOALS ESTABLISHED.
[2021-05-26 08:15] VITALS: BP 150/64
[2021-05-26 12:44] VITALS: BP 121/49
[2021-05-26 16:18] VITALS: BP 120/45
--- NOTE | 2021-05-26 18:12 | NUR ---
PT RESTED IN BED WITH Q [address] SIMS AND DR. PASTOR ASSESSED PT AND NEW ORDERS WRITTEN. UPDATED SISTER OF PT'S CONSITION. PT BATHED AND CLEANED BY TECH. WILL CONTINUE TO ASSESS.
[2021-05-26 19:57] VITALS: BP 138/57
--- NOTE | 2021-05-27 03:38 | NUR ---
ASSUMED CARE OF PATIENT AT 1900. MOVED PATIENT TO 217 TO BE CLOSER TO NURSES STATION. NEW IV ATTEMPTED DUE TO INCOMPATABILITY OF MEDS. SR. PAYROLL PROCESSOR ABLE TO PLACE ONE IN BREAST. PATIENT NEEDS MIDLINE. NO OTHER CONCERNS AT THIS TIME. WORKING TOWARDS POC GOALS.
[2021-05-27 04:30] VITALS: BP 154/68
[2021-05-27 06:05] LABS: HEMATOCRIT 32.4 % (37.0-47.0); HEMOGLOBIN 10.9 gm/dL (12.0-15.0); MCH 30.4 pg (26.0-34.0); MCHC 33.8 g/dL (28.0-37.0); MCV 90.1 fL (80.0-100.0); RBC 3.59 mil/uL (4.20-5.00); RDW 13.8 % (10.5-14.5)
[2021-05-27 08:21] VITALS: BP 137/47
[2021-05-27 15:42] VITALS: BP 112/48
[2021-05-27 19:40] VITALS: BP 138/63
[2021-05-28 04:30] VITALS: BP 140/48
--- NOTE | 2021-05-28 07:32 | NUR ---
ASSUMED CARE OF PT AT 1900 PT IS ALERT TO SELF, ASSESSMENT COMPLETED NOTED. PEG TUBE IS PATENT, AND FLUSHES WELL. WILL CONTINUE TO WORK TOWARDS POC T/O SHIFT.
[2021-05-28 08:00] VITALS: BP 150/63
--- NOTE | 2021-05-28 12:00 | NUR ---
Discussed during los, dc back to [facility] today. Cm visited with bedside nurse. Cm spoke with her sister toni via phone call. Cm spoke with house manage david, just wants to know transportation time # [phone], left message with catarino [phone]. She will need [facility] transportation home, with wheel chair and prn oxygen. Cm checking with hospitalist to see when dc will be completed?
[2021-05-28 12:32] VITALS: BP 143/57
[2021-05-28] MEDS ORDERED: AUGMENTIN 875-1 EACH PO ×2 (12:42)
[2021-05-28 13:13] VITALS: BP 143/57
--- NOTE | 2021-05-28 13:20 | NUR ---
PT RESTING COMFORTABLY. DOES NOT COMMUNICATE ANY PAIN OR TROUBLE BREATHING. PT AFEBRILE, ADEQUATE UOP, NO BM, TUBE FEEDING INIATED. PLAN IS FOR PT TO BE TRANSFERED TO [facility] THIS AFTERNOON BY AMBULANCE. PT HAS BEEN UPDATED AND EDUCATED ON CONDITION AND POC. PT SLOWLY PROGRESSING TOWARDS POC. REPORT CALLED TO CHRISTIANO CARTER.
[2021-05-28 16:51] VITALS: BP 154/62
== END 2021-05-28 17:00 | disposition home or self-care (01) | DRG 177 ==
LOC: ER 12:22 → 2N 14:31 → EROBS 14:31 → 2N 15:58
PROVIDERS: Emergency Medicine; Internal Medicine Pulmonary Disease; ADMIT Hospitalist; ATTEND Hospitalist
DX: J69.0 Pneumonitis due to inhalation of food and vomit (principal); J96.01 Acute respiratory failure with hypoxia; M85.80 Other specified disorders of bone density and structure, unspecified site; E03.9 Hypothyroidism, unspecified; I10 Essential (primary) hypertension; E78.5 Hyperlipidemia, unspecified; J44.9 Chronic obstructive pulmonary disease, unspecified; G40.909 Epilepsy, unspecified, not intractable, without status epilepticus; K59.00 Constipation, unspecified; Z79.01 Long term (current) use of anticoagulants; Z86.711 Personal history of pulmonary embolism; Z79.899 Other long term (current) drug therapy; Z86.16 Personal history of COVID-19
CPT/HCPCS: 10081